=== PATIENT | male | born 1980 | race Caucasian/White ===

== ENCOUNTER → 2019-02-15 | Outpatient (CLI) | payer OTHER ==
[~2019-02-15] MED LIST: ACETAMINOPHEN325 M1 PO; ALPRAZOLAM ER1 MG; AMOXICILLIN875 MG PO; ASPIRIN325 PO; CARISOPRODOL 3350 M1; CIPROFLOXACIN500 M3 PO; COZAAR 50 MG TA50 MG PO; HYDROCODON-ACE1 EACH; HYDROCODONE-AP1 EAC6 PO; IBUPROFEN 800800 M1 PO; NEXIUM40 MG PO; NORVASC5 MG PO; OXYCODONE HCL 55 MG PO; PERCOCET 5-3251 EACH PO; PERCOCET PO; PREDNISONE 20 M20 MG PO; PRINIVIL5 MG PO; XANAX1 MG PO; XARELTO10 MG PO
== END ==
LOC: M.CT 02-14 13:30
DX: Z13.6 Encounter for screening for cardiovascular disorders (principal); I25.10 Atherosclerotic heart disease of native coronary artery without angina pectoris

== ENCOUNTER 2019-03-04 08:07 | Emergency (ER) | payer BC ==
[~2019-03-04] VITALS: Ht 180.3 cm; Wt 88.5 kg
[2019-03-04] MEDS ORDERED: LIPITOR40 MG PO (08:22)
[2019-03-04 08:53] LABS: HEMATOCRIT 46.4 % (42.0-52.0); HEMOGLOBIN 16.4 gm/dL (14.0-18.0); MCHC 35.3 g/dL (28.0-37.0); MCV 87.9 fL (80.0-100.0); MPV 6.9 fl. (7.2-11.1); NUCLEATED RBCS 0 /100WBC; PLATELET COUNT* 211 thou/uL (150-400); RBC 5.28 mil/uL (4.50-6.00); WBC 9.8 thou/uL (4.0-11.0)
[2019-03-04 08:58] LABS: CALCIUM 9.1 mg/dL (8.5-10.1); CREATININE 0.6 mg/dL (0.6-1.3); POTASSIUM 3.9 mmol/L (3.5-5.1)
[2019-03-04 09:03] LABS: INR 1.2; PROTIME 12.5 Seconds (9.20-11.50); TOTAL BILIRUBIN 1.7 mg/dL (<0.1-1.0); TOTAL PROTEIN 7.5 g/dL (6.4-8.2)
[2019-03-04 09:37] LABS: ABSOLUTE BASOPHILS 0.1 thou/uL (0.0-0.2); ABSOLUTE LYMPHOCYTES 0.6 thou/uL (0.8-5.3); ABSOLUTE MONOCYTES 0.7 thou/uL (0.0-1.2); ABSOLUTE NEUTROPHILS 8.4 thou/uL (1.6-8.1)
[2019-03-04 09:39] LABS: PLATELET ESTIMATE ADEQUATE
[2019-03-04 09:48] LABS: URINE BILIRUBIN NEGATIVE (Negative); URINE BLOOD NEGATIVE (Negative); URINE CLARITY CLEAR; URINE COLOR YELLOW; URINE GLUCOSE-RANDOM NEGATIVE (Negative); URINE KETONES TRACE (Negative); URINE LEUKOCYTES-REFLEX NEGATIVE (Negative); URINE NITRITE-REFLEX NEGATIVE (Negative); URINE PROTEIN NEGATIVE (Negative); URINE SPECIFIC GRAVITY 1.015 (1.005-1.030); URINE UROBILINOGEN 0.2 E.U./dl (0.2-1.0)
[2019-03-04] MEDS ORDERED: CIPROFLOXACIN500 M1 PO (12:03)
[2019-03-04] MEDS ORDERED: HYDROCODON-ACE1 EAC7 PO (12:03)
[2019-03-04] MEDS ORDERED: ZOFRAN ODT4 MG PO (12:03)
[2019-03-04] MEDS ORDERED: FLAGYL500 M1 PO (12:03)
[2019-03-04 12:29] VITALS: BP 142/83
== END 2019-03-04 12:36 | disposition home or self-care (01) ==
LOC: M.ERS 08:07
PROVIDERS: Personal Emergency Response Attendant
DX: K52.9 Noninfective gastroenteritis and colitis, unspecified (principal); I10 Essential (primary) hypertension; Z96.642 Presence of left artificial hip joint; Z96.651 Presence of right artificial knee joint

== ENCOUNTER → 2019-03-11 | Outpatient (CLI) | payer BC ==
[~2019-03-11] VITALS: Ht 182.9 cm; Wt 88.6 kg
[~2019-03-11] MED LIST changes: +CIPROFLOXACIN500 M1 PO; +FLAGYL500 M1 PO; +HYDROCODON-ACE1 EAC7 PO; +LIPITOR40 MG PO; +ZOFRAN ODT4 MG PO
[2019-03-11 11:25] LABS: HEMATOCRIT 42.3 % (42.0-52.0); HEMOGLOBIN 14.4 gm/dL (14.0-18.0); MCH 30.6 pg (26.0-34.0); MCHC 34.1 g/dL (28.0-37.0); MCV 89.7 fL (80.0-100.0); MPV 6.5 fl. (7.2-11.1); RBC 4.71 mil/uL (4.50-6.00); WBC 8.1 thou/uL (4.0-11.0)
[2019-03-11 11:39] LABS: ANION GAP 7 mmol/L (7-16); APTT 25.7 Seconds (25.0-31.3); BUN 28 mg/dL (7-18); CALCIUM 8.7 mg/dL (8.5-10.1); CHLORIDE 102 mmol/L (98-107); CO2 27 mmol/L (21-32); CREATININE 1.1 mg/dL (0.6-1.3); GLUCOSE 94 mg/dL (70-99); INR 1.2; POTASSIUM 4.1 mmol/L (3.5-5.1); SODIUM 136 mmol/L (136-145)
[2019-03-11 11:43] LABS: ALBUMIN 3.9 g/dL (3.4-5.0); ALKALINE PHOSPHATASE 70 U/L (46-116); CHOLESTEROL 141 mg/dL (<200); HDL CHOLESTEROL 36 mg/dL (>40); LDL CHOLESTEROL 89 mg/dL (<100); SGOT 30 U/L (15-37); SGPT 100 U/L (30-65); TC:HDL 3.9 Ratio (Not establshd); TOTAL BILIRUBIN 0.6 mg/dL (<0.1-1.0); TRIGLYCERIDE 83 mg/dL (<150); VLDL 17 mg/dL (<40)
[2019-03-11 11:45] LABS: SERUM ASSESSMENT Clear
--- NOTE | 2019-03-11 13:13 | EKG ---
[place] [address] ELECTROCARDIOGRAM REPORT Name: INDU,CARLA Tadeo Room: [facility]#: [id number] Admission: 03/11/19 Attend Phys: Marlo Steiner MD, Discharge: Date of : 78 Report #: [id number] THIS REPORT FOR: //name// [facility] Test Date: 2019-03-11 Test Time: 11:28:25 Pat Name: CARLA GRIGGS Department: Room: Gender: Drier Helper: : 1980 Requested By: Marlo Steiner Order Number: [id number] Reading MD: Enoch Ricardo Measurements Intervals [place] Rate: 49 P: 47 [place]: 174 QRS: 57 QRSD: 113 T: 19 QT: 465 QTc: 420 Interpretive Statements Sinus bradycardia Borderline intraventricular conduction delay ST elev, probable normal early repol pattern Compared to ECG 04/02/2017 13:29:45 Sinus rhythm no longer present ST (T wave) deviation still present Electronically Signed On 03-11-2019 13:12:57 CDT by Enoch Ricardo [email or web address] <ELECTRONICALLY SIGNED> By: Kevin Ricardo MD, [facility] 03/11/19 1312 1128 1128 FPinky Ricardo MD, [facility] /EPI
[2019-03-11 15:08] VITALS: BP 123/79
[2019-03-11 15:17] VITALS: BP 129/82
[2019-03-11 15:46] VITALS: BP 140/78
[2019-03-11 16:01] VITALS: BP 136/76
--- NOTE | 2019-03-11 16:09 | CARD ---
[address] [address] CARDIAC CATH REPORT Name: CARLA GRIGGS Shwetha Room: [facility]#: [id number] Admission: 03/11/19 Attend Phys: Marlo Steiner MD, Discharge: Date of : 78 Report #: [id number] THIS REPORT FOR: //name// APPROVED REPORT Study performed: 03/11/2019 13:42:58 Patient Details The patient is a 38 year-old male Event Personnel Marlo Steiner Wire Preparation Worker, Alberto Kennedy (Adarsh James Jessie RTR Monitor, Jaime Velasco TELEVISION SCRIPT WRITER Monitor, Chichi Villarreal RN Pneumatic Deicer Inspector Procedures Performed Art Access - R radial artery Left Heart Cath w/or w/o Coronaries [id number] [facility] Hemostasis with Hemoband , Complete Heart Catheterization Indication Dyspnea, Markedly increased coronary calcium score Risk Factors Family History, Hypercholesterolemia Admission/Lab Medications/Medications given during procedure Heparin Unfract. Procedure Narrative The patient was brought electively to the Cardiac Catheterization Laboratory and was prepped and draped in a sterile manner. The right wrist was infiltrated with 2% Lidocaine subcutaneous anesthesia. A Slender Glidesheath sheath was inserted into the RRA. Coronary angiography was performed using coronary diagnostic catheters. The right coronary system was accessed and visualized with a [place] 4.0 6fr catheter. The left coronary system was accessed and visualized with a JL 3.5 5fr catheter. The left ventricle was accessed and visualized with a PC: Pig 6fr catheter. Left ventricular/Aortic Valve gradient assessed via catheter pullback. Left ventriculogram was performed in ZIMMERMAN projection. Closure device was deployed with a Fr Vasc-Band Reg 24cm. The patient tolerated the procedure well and there were no complications associated with the procedure. There [place] [address] CARDIAC CATH REPORT Name: CARLA GRIGGS Room: [facility]#: [id number] Admission: 03/11/19 Attend Phys: Marlo Steiner MD, Discharge: Date of : 78 Report #: [id number] Intraoperative Conscious Sedation Sedation start time: 1406 Case end Time: 1436 Fentanyl 75 mcg Dose: 1133 mGy Contrast Type and Amount: Visipaque 120 ml Coronary Angiography The patient's coronary anatomy is right dominant. Diagnostic Cath Left Main 0% narrowing LAD Prominent vessel with 30% mid vessel narrowing Circumflex 0% narrowing Right Coronary Large dominant vessel with mild aneurysmal dilatation of the proximal mid and distal portions; there was 0% stenosis noted Left Ventriculography The left ventricle is normal in size with normal contractility. The left ventricular ejection fraction is estimated to be 55%. Left ventricular wall motion abnormalities are not present. There is no mitral insufficiency. Hemodynamics The aortic pressure is 138/69 mmHg with a mean of 97 mmHg. The left ventricular pressure is 130/2 mmHg with a mean of mmHg. The left ventricular end diastolic pressure is 12 mmHg. There was no gradient across the aortic valve upon pullback. 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 with 0% stenosis noted #2 normal left ventricular systolic function, estimate ejection fraction being 55% #3 normal left-sided hemodynamics study Recommendations Cardiac [place] [address] CARDIAC CATH REPORT Name: CARLA GRIGGS Room: [facility]#: [id number] Admission: 03/11/19 Attend Phys: Marlo Steiner MD, Discharge: Date of : 78 Report #: [id number] Aggressive Medical Therapy Diagnostic Cath Approved by: Marlo Steiner MD Date/Time: 03/11/2019 15:51:26 <ELECTRONICALLY SIGNED> By: Marlo Steiner MD, [facility] 03/11/19 1609 1609 1609Marlo Steiner MD, FAC /INF
== END | disposition home or self-care (01) ==
LOC: M.CL 10:48
PROVIDERS: Internal Medicine
DX: I25.10 Atherosclerotic heart disease of native coronary artery without angina pectoris (principal); I10 Essential (primary) hypertension; E78.00 Pure hypercholesterolemia, unspecified; Z96.642 Presence of left artificial hip joint; Z96.651 Presence of right artificial knee joint; Z98.890 Other specified postprocedural states; Z87.891 Personal history of nicotine dependence; Z79.82 Long term (current) use of aspirin; Z79.899 Other long term (current) drug therapy; Z82.49 Family history of ischemic heart disease and other diseases of the circulatory system; Z79.01 Long term (current) use of anticoagulants

== ENCOUNTER 2019-09-06 06:27 | Emergency (ER) | payer BC ==
[~2019-09-06] VITALS: Ht 180.3 cm; Wt 90.7 kg
[2019-09-06] MEDS ORDERED: CYCLOBENZAPRINE5 MG PO (07:30)
[2019-09-06] MEDS ORDERED: MOBIC15 MG PO (07:30)
[2019-09-06] MEDS ORDERED: HYDROCODON-ACE1 EAC7 PO (07:30)
[2019-09-06 07:45] VITALS: BP 124/79
== END 2019-09-06 07:45 | disposition home or self-care (01) ==
LOC: M.ERS 06:27
DX: S43.491A Other sprain of right shoulder joint, initial encounter (principal); I10 Essential (primary) hypertension; W01.0XXA Fall on same level from slipping, tripping and stumbling without subsequent striking against object, initial encounter; Y93.89 Activity, other specified; Y92.89 Other specified places as the place of occurrence of the external cause; Y99.8 Other external cause status

== ENCOUNTER → 2019-09-09 | Outpatient (CLI) | payer BC ==
[~2019-09-09] MED LIST changes: +CYCLOBENZAPRINE5 MG PO; +MOBIC15 MG PO
== END ==
LOC: M.MRI 13:02
DX: S43.431A Superior glenoid labrum lesion of right shoulder, initial encounter (principal); M75.101 Unspecified rotator cuff tear or rupture of right shoulder, not specified as traumatic; M19.011 Primary osteoarthritis, right shoulder; M75.81 Other shoulder lesions, right shoulder; X58.XXXA Exposure to other specified factors, initial encounter; Y93.89 Activity, other specified; Y92.89 Other specified places as the place of occurrence of the external cause; Y99.8 Other external cause status

== ENCOUNTER 2019-10-11 18:20 | Emergency (ER) | payer BC ==
[~2019-10-11] VITALS: Ht 182.9 cm; Wt 93.0 kg
[2019-10-11] MEDS ORDERED: HYDROCODON-ACE1 EAC8 PO (20:14)
[2019-10-11 20:21] VITALS: BP 132/83
== END 2019-10-11 20:22 | disposition home or self-care (01) ==
LOC: M.ERS 18:20
DX: S46.211A Strain of muscle, fascia and tendon of other parts of biceps, right arm, initial encounter (principal); I10 Essential (primary) hypertension; Z96.642 Presence of left artificial hip joint; Z96.651 Presence of right artificial knee joint; X50.9XXA Other and unspecified overexertion or strenuous movements or postures, initial encounter; Y93.89 Activity, other specified; Y92.89 Other specified places as the place of occurrence of the external cause; Y99.8 Other external cause status

== ENCOUNTER 2021-01-18 10:27 | Emergency (ER) | payer BC ==
[~2021-01-18] VITALS: Ht 182.9 cm; Wt 108.9 kg
[~2021-01-18 10:27] MED LIST changes: +HYDROCODON-ACE1 EAC8 PO
[2021-01-18 11:26] LABS: ABSOLUTE LYMPHOCYTES 1.1 thou/uL (0.8-5.3); ABSOLUTE MONOCYTES 0.1 thou/uL (0.0-1.2); ABSOLUTE NEUTROPHILS 3.3 thou/uL (1.6-8.1); BASOPHILS 0.1 %; HEMATOCRIT 40.1 % (42.0-52.0); HEMOGLOBIN 14.1 gm/dL (14.0-18.0); MCH 30.3 pg (26.0-34.0); MCV 86.5 fL (80.0-100.0); MONOCYTES 3.2 %; MPV 6.4 fl. (7.2-11.1); NUCLEATED RBCS 0 /100WBC; PLATELET COUNT* 143 thou/uL (150-400); POLYS 71.7 %; RBC 4.64 mil/uL (4.50-6.00); RDW-CV 13.2 % (10.5-14.5); WBC 4.6 thou/uL (4.0-11.0)
[2021-01-18 11:34] LABS: CALCIUM 8.2 mg/dL (8.5-10.1); CREATININE 0.8 mg/dL (0.6-1.3); POTASSIUM 4.2 mmol/L (3.5-5.1)
[2021-01-18 11:38] LABS: ALBUMIN 3.7 g/dL (3.4-5.0); TOTAL BILIRUBIN 0.7 mg/dL (<0.1-1.0)
[2021-01-18] MEDS ORDERED: DOXYCYCLINE 10100 MG PO (12:15)
[2021-01-18] MEDS ORDERED: PROAIR HFA8.5 GM INH (12:15)
[2021-01-18] MEDS ORDERED: APAP W/CODEINE1 TA2 PO (12:15)
[2021-01-18] MEDS ORDERED: PREDNISONE 20 M20 MG PO (12:15)
[2021-01-18 12:45] VITALS: BP 131/65
== END 2021-01-18 12:46 | disposition home or self-care (01) ==
LOC: M.ERS 10:27
PROVIDERS: Physician Assistant
DX: U07.1 COVID-19 (principal); J12.82 Pneumonia due to coronavirus disease 2019; I10 Essential (primary) hypertension

== ENCOUNTER 2021-01-21 08:57 | Inpatient (IN) | payer BC ==
[~2021-01-21] VITALS: Ht 182.9 cm; Wt 82.9 kg
[~2021-01-21 08:57] MED LIST changes: +APAP W/CODEINE1 TA2 PO; +DOXYCYCLINE 10100 MG PO; +PROAIR HFA8.5 GM INH
[2021-01-21 09:11] VITALS: BP 134/86
[2021-01-21 10:08] LABS: HEMATOCRIT 39.9 % (42.0-52.0); HEMOGLOBIN 14.1 gm/dL (14.0-18.0); MCH 30.6 pg (26.0-34.0); MCHC 35.3 g/dL (28.0-37.0); MCV 86.6 fL (80.0-100.0); MPV 6.5 fl. (7.2-11.1); NUCLEATED RBCS 0 /100WBC; PLATELET COUNT* 180 thou/uL (150-400); RBC 4.61 mil/uL (4.50-6.00); RDW-CV 13.3 % (10.5-14.5); WBC 5.7 thou/uL (4.0-11.0)
[2021-01-21 10:16] LABS: CALCIUM 7.6 mg/dL (8.5-10.1); CREATININE 0.7 mg/dL (0.6-1.3); POTASSIUM 3.7 mmol/L (3.5-5.1)
[2021-01-21 10:32] LABS: ALBUMIN 3.3 g/dL (3.4-5.0); TOTAL BILIRUBIN 0.8 mg/dL (<0.1-1.0)
[2021-01-21 11:28] LABS: ABSOLUTE LYMPHOCYTES 0.5 thou/uL (0.8-5.3); ABSOLUTE NEUTROPHILS 5.2 thou/uL (1.6-8.1); ATYPICAL LYMPHS 1 %; PLATELET ESTIMATE ADEQUATE
[2021-01-21 15:28] VITALS: BP 137/84
--- NOTE | 2021-01-21 15:35 | EKG ---
[place] [address] ELECTROCARDIOGRAM REPORT Name: CARLA GRIGGS Room: [place] [address] ADM IN [facility]#: [id number] Admission: 01/21/21 Attend Phys: Bill Hedrick Discharge: Date of : 78 Date of Service: 01/21/21 0924 Report #: [id number] THIS REPORT FOR: //name// [facility] ED Test Date: 2021-01-21 Test Time: 09:24:43 Pat Name: CARLA GRIGGS Department: Room: [facility] Gender: M Coldfusion: KYLIE : 1980 Requested By: Marco Parra Order Number: [id number] MD: Tio Baird Measurements Intervals [place] Rate: 94 P: 34 [place]: 170 QRS: 39 QRSD: 110 T: -18 QT: 370 QTc: 463 Interpretive Statements Sinus rhythm Probable inferior infarct, age indeterminate Compared to ECG 03/11/2019 11:28:25 Sinus bradycardia no longer present ST (T wave) deviation still present Electronically Signed On 01-21-2021 15:35:44 CDT by Tio Baird [email or web address] <ELECTRONICALLY SIGNED> By: Tio Baird MD, FAC 01/21/21 1535 3 Tio Baird MD, FAC /EPI
[2021-01-21 19:50] VITALS: BP 136/81
[2021-01-21 23:56] VITALS: BP 117/69
[2021-01-22 00:44] VITALS: BP 130/79; BP 134/80
--- NOTE | 2021-01-22 02:40 | NUR ---
ASSUMED CARE OF PT AT 1900. PT IS ALERT AND ORIENTED. VSS. PERRLA. NO COMPLAINTS OF PAIN. CONVALESCENT PLASMA GIVEN. PT IS ON 2 LITERS O2. PT IS IN SINUS RYTHM ON THE TELEMETRY. PT IS RESTING COMFORTABLY IN BED. RESPIRATIONS ARE EVEN AND NONLABORED. WILL CONTINUE TO MONITOR PT.
[2021-01-22 04:31] VITALS: BP 110/60
[2021-01-22 04:59] LABS: HEMATOCRIT 38.3 % (42.0-52.0); HEMOGLOBIN 13.6 gm/dL (14.0-18.0); MCH 30.1 pg (26.0-34.0); MCHC 35.5 g/dL (28.0-37.0); MCV 84.8 fL (80.0-100.0); MPV 6.7 fl. (7.2-11.1); RBC 4.51 mil/uL (4.50-6.00); RDW-CV 13.3 % (10.5-14.5); WBC 5.7 thou/uL (4.0-11.0)
[2021-01-22 05:11] LABS: CALCIUM 8.4 mg/dL (8.5-10.1); CREATININE 0.7 mg/dL (0.6-1.3); POTASSIUM 4.1 mmol/L (3.5-5.1)
[2021-01-22 08:00] VITALS: BP 141/84
[2021-01-22 12:00] VITALS: BP 133/80
--- NOTE | 2021-01-22 13:15 | NUR ---
Pt covid positive, CM spoke with Pt via phone. Pt resides at home with , is also positive. Normally active and independent. No DME. No hx of HH or SNF. Pt requiring 5L o2. Continue ivabx. Goal is home at dc, CM to follow for possible o2 needs at dc. Anticipate dc in a few days.
[2021-01-22] MEDS ORDERED: XANAX1 MG PO (14:17)
[2021-01-22 15:43] LABS: BE 0.3 mmol/L (-2 to +3); PCO2 32.8 mmHg (35.0-45.0); pH 7.467 (7.340-7.450)
[2021-01-22 15:48] LABS: PO2 58.3 mmHg (75.0-100.0)
[2021-01-22 16:00] VITALS: BP 131/81
[2021-01-22 18:33] LABS: APTT 24.2 Seconds (25.0-31.3); INR 1.1; PROTIME 11.2 Seconds (9.20-11.50)
[2021-01-22 19:55] LABS: URINE BILIRUBIN NEGATIVE (Negative); URINE BLOOD NEGATIVE (Negative); URINE CLARITY CLEAR; URINE COLOR YELLOW; URINE GLUCOSE-RANDOM NEGATIVE (Negative); URINE KETONES NEGATIVE (Negative); URINE LEUKOCYTES-REFLEX NEGATIVE (Negative); URINE NITRITE-REFLEX NEGATIVE (Negative); URINE PROTEIN 1+ (Negative); URINE SPECIFIC GRAVITY 1.015 (1.005-1.030); URINE UROBILINOGEN 0.2 E.U./dl (0.2-1.0)
[2021-01-22 20:00] VITALS: BP 141/87
[2021-01-23 02:24] VITALS: BP 137/84
[2021-01-23 04:13] LABS: APTT 24.2 Seconds (25.0-31.3); INR 1.1; PROTIME 11.4 Seconds (9.20-11.50)
[2021-01-23 04:17] LABS: ABSOLUTE LYMPHOCYTES 0.5 thou/uL (0.8-5.3); ABSOLUTE MONOCYTES 0.2 thou/uL (0.0-1.2); ABSOLUTE NEUTROPHILS 2.8 thou/uL (1.6-8.1); BASOPHILS 0.2 %; HEMATOCRIT 40.9 % (42.0-52.0); HEMOGLOBIN 14.6 gm/dL (14.0-18.0); LYMPHOCYTES 14.9 %; MCH 30.6 pg (26.0-34.0); MCHC 35.6 g/dL (28.0-37.0); MONOCYTES 5.7 %; MPV 6.7 fl. (7.2-11.1); NUCLEATED RBCS 0 /100WBC; PLATELET COUNT* 265 thou/uL (150-400); POLYS 79.2 %; RBC 4.76 mil/uL (4.50-6.00); RDW-CV 13.6 % (10.5-14.5); WBC 3.5 thou/uL (4.0-11.0)
[2021-01-23 04:32] LABS: ALBUMIN 3.1 g/dL (3.4-5.0); CALCIUM 8.4 mg/dL (8.5-10.1); CREATININE 0.7 mg/dL (0.6-1.3); MAGNESIUM 2.2 mg/dL (1.8-2.4); POTASSIUM 4.1 mmol/L (3.5-5.1); TOTAL BILIRUBIN 0.6 mg/dL (<0.1-1.0); TOTAL PROTEIN 7.4 g/dL (6.4-8.2)
[2021-01-23 05:19] VITALS: BP 127/78
[2021-01-23 08:00] VITALS: BP 118/78
--- NOTE | 2021-01-23 09:28 | EKG ---
[place] [address] ELECTROCARDIOGRAM REPORT Name: DARIUSZ GRIGGSCHAPILAR Tadeo Room: [address] ADM IN ..#: [id number] Admission: 01/21/21 Attend Phys: Bill Hedrick Discharge: Date of : 78 Date of Service: 01/22/21 1306 Report #: [id number] THIS REPORT FOR: //name// [facility] Test Date: 2021-01-22 Test Time: 13:06:33 Pat Name: CARLA GRIGGS Department: Room: [address] Gender: M Quality Control Checker: JUNIOR : 1980 Requested By: Bill Hedrick Order Number: [id number] Raciel MD: Tio Baird Measurements Intervals [place] Rate: 103 P: 28 [place]: 150 QRS: 32 QRSD: 102 T: -22 QT: 354 QTc: 464 Interpretive Statements Sinus tachycardia Probable left atrial enlargement Borderline T abnormalities, inferior leads Compared to ECG 01/21/2021 09:24:43 Sinus rhythm no longer present Electronically Signed On 01-23-2021 9:28:18 CDT by Tio Baird [email or web address] <ELECTRONICALLY SIGNED> By: Tio Baird MD, [facility] 01/23/21 0928 1306 1306 Tio Baird MD, [facility] /EPI
--- NOTE | 2021-01-23 15:35 | NUR ---
Covid positive. O2 needs up to 8L. No dc date planned at this time
[2021-01-23 19:01] VITALS: BP 150/85
[2021-01-23 19:50] VITALS: BP 125/74
[2021-01-24] VITALS (8 sets, daily range): BP systolic 132–161; BP diastolic 73–84
--- NOTE | 2021-01-24 00:44 | NUR ---
ASSUMED CARE OF PT AT 1900. PT IS ALERT AND ORIENTED. VSS. PERRLA. NO COMPLAINTS OF PAIN. PT IS ON 12 LITERS O2. PT IS IN SINUS RYTHM ON THE TELEMETRY. PT IS RESTING COMFORTABLY IN BED. RESPIRATIONS ARE EVEN AND NONLABORED. WILL CONTINUE TO MONITOR PT.
[2021-01-24 04:17] LABS: HEMATOCRIT 42.3 % (42.0-52.0); HEMOGLOBIN 15.2 gm/dL (14.0-18.0); MCH 30.6 pg (26.0-34.0); MCHC 35.9 g/dL (28.0-37.0); MCV 85.4 fL (80.0-100.0); MPV 6.8 fl. (7.2-11.1); RBC 4.95 mil/uL (4.50-6.00); RDW-CV 13.5 % (10.5-14.5); WBC 5.7 thou/uL (4.0-11.0)
[2021-01-24 04:25] LABS: CALCIUM 8.5 mg/dL (8.5-10.1); CREATININE 0.7 mg/dL (0.6-1.3); POTASSIUM 3.8 mmol/L (3.5-5.1)
[2021-01-24 15:53] LABS: CALCIUM 8.2 mg/dL (8.5-10.1); CREATININE 0.9 mg/dL (0.6-1.3); MAGNESIUM 2.1 mg/dL (1.8-2.4); POTASSIUM 3.8 mmol/L (3.5-5.1)
--- NOTE | 2021-01-24 17:47 | NUR ---
PATIENT RESTING COMFORTABLY IN ROOM. 94% ON 12L HIGH FLOW NASAL CANNULA. MIDLINE TO LEFT UPPER ARM, PATENT, SALINE LOCKED. IV TO RIGHT FOREARM, PATENT, SALINE LOCKED. BLOOD SUGARS MONITORED THROUGHOUT SHIFT, INSULIN GIVEN ORDERED/NEEDED. BED IN LOW/LOCKED POSITION, CALL LIGHT WITHIN REACH. NO QUESTIONS OR CONCERNS VOICED.
--- NOTE | 2021-01-24 20:00 | NUR ---
RECEIVED REPORT AND ASSUMED CARE OF PT, ASSESSMENT COMPLETED. PT IN ENHANCED ISOLATION FOR COVID. O2 ON AT 12L/HFC, SOA WITH ANY ACTIVITY, HOB ELEVATED. DISCUSSED CONVALESCENT PLASMA AND WILL TRANSFUSE. TELEMETRY ON SHOWING SB. WILL CONT TO MONITOR AND ASSIST NEEDED.
--- NOTE | 2021-01-24 21:41 | CON ---
[address] [address] CONSULTATION Name: ALETA GRIGGSRY Shwetha Room: [address] IN ..#: [id number] Admission: 01/21/21 Attend Phys: Yani Campos Discharge: Date of : 78 Report #: [id number] THIS REPORT FOR: cc: Lita Shi Maggie M. DO Pervez, Adeel MD ~ DOC #: [id number] Yo [facility] MD DATE OF CONSULTATION: 01/23/2021 REQUESTING PHYSICIAN: Dr. Campos. INDICATION FOR CONSULTATION: COVID-19 leading to acute hypoxemic respiratory failure. HISTORY OF PRESENT ILLNESS: A 40-year-old gentleman. He has had various orthopedic surgeries as described below in the past, also he carries a previous diagnosis of hypertension, although he is not noted to be on any antihypertensive agents up on admission. There is no known history of smoking. The patient now presented to the Emergency Room a few days ago. Presentation was with intractable high-grade fever. He had had contact with COVID-19 as well. The patient at that time was given a prescription of prednisone as well as doxycycline. He came back to the Emergency Room yesterday again with high-grade fever. He also reported that he was having increasing shortness of breath. He had had a significant cough, but not much sputum. The patient did not describe any upper respiratory complaints, swelling of lower extremities or calf pain. He did report that he had a poor appetite. Yesterday afternoon, the patient's respiratory status worsened. He became significantly tachycardic. He also had increasing oxygen needs. The patient initially was only on 2 liters oxygen via nasal cannula, maintaining O2 saturation in the low 90s, although he was hypoxic on room air. This need to be increased to at 10 liters. He also had some chest tightness and some chest discomfort with respiration and coughing. His troponin I was not elevated at that time, the patient did appropriately receive dexamethasone as well as convalescent plasma and remdesivir yesterday. He was relating worsening in his symptoms yesterday, receiving albuterol inhaler, although I am not certain if they were actually related. When I was called, I went ahead and increased dexamethasone, also ordered Actemra. We proceeded obtaining a CTA chest which does show extensive bilateral infiltrates, but there are no pulmonary emboli noted. He does not have swelling of lower extremities. He does not have calf pain. He does report that he is feeling significantly better than yesterday; however, he still remains on 10 liters of oxygen, maintaining O2 saturation in the low 90[place] [address] CONSULTATION Name: CARLA GRIGGS Room: [address] IN [facility]#: [id number] Admission: 01/21/21 Attend Phys: Yani Campos Discharge: Date of : 78 Report #: [id number] REVIEW OF SYSTEMS: Review of systems for 12 points is negative except as mentioned above. I specifically did ask him about sleep complaints and he denied. PAST MEDICAL HISTORY: Fusion at neck, C5-C6, hip and knee surgeries, rotator cuff surgery, hypertension as mentioned on his records, however, his blood pressure currently is within the normal range without antihypertensive medications. SOCIAL HISTORY: No known history of smoking, ethanol abuse, or drug abuse. CURRENT MEDICATIONS: List in [employer] reviewed. [facility] MED[facility]. Also, see discussion above. FAMILY HISTORY: There is no pertinent family history. PHYSICAL EXAMINATION: GENERAL: He is alert, awake and oriented, does not appear to be in any distress at this time. VITAL SIGNS: Has a pulse of 70 and a blood pressure of 118/78. He is saturating 94%. He is on 10 liters oxygen via nasal cannula. His respiratory rate is around 18. He is afebrile now with a temperature of 36.5 noted. Note that I did give him a larger dose of Decadron yesterday. He had a temperature of 38.7 yesterday. Body mass index is 33. HEENT: Head is normocephalic and atraumatic. Pupils are equal. There is no throat erythema. NECK: Does not show raised JVP asymmetry, mass or lymph nodes. CHEST: Symmetrical expansion on inspection and palpation. On auscultation, breath sounds are bilaterally equal. There are minimal rales at bilateral bases. HEART: Regular. There is no murmur. ABDOMEN: Soft and nontender. EXTREMITIES: Lower extremities show no edema, no calf tenderness. SKIN: Dry and intact. NEUROLOGIC: Moves all extremities bilaterally equally and spontaneously with no focal deficit identified. LABORATORY DATA: The patient's CTA chest is reviewed. Chest x-ray is also reviewed. See discussion as above as well as the lab work is in [facility] and this is also reviewed. He is positive for COVID-19 antigen. Arterial blood gas is consistent with acute hypoxemic respiratory failure. [address] [address] CONSULTATION Name: CARLA GRIGGS Room: [address] IN [facility]#: [id number] Admission: 01/21/21 Attend Phys: Yani Campos Discharge: Date of : 78 Report #: [id number] ASSESSMENT AND PLAN: 1. Acute hypoxemic respiratory failure secondary to COVID-19. I did discuss with him regarding prone positioning and sleeping on sides and avoiding sleeping supine. Recommend out of bed to chair as tolerated. Recommend incentive spirometry. I suspect that he has underlying obstructive sleep apnea. This is despite the fact that he denied any sleep complaints. Therefore, if he is to decline, recommend having a low threshold of moving him to a negative pressure room so that he could be on a BiPAP while asleep. I am not certain if the patient's symptoms yesterday were in fact related to albuterol, but it is for this reason that I did not order scheduled albuterol at this time. Certainly if he declines, I will consider giving him Brovana. 2. COVID-19. His fever is better since yesterday. This is likely a response to dexamethasone. I would continue current dose and then titrate per response. Also, will continue remdesivir, follow LFTs. We did give him Actemra as well yesterday, he did receive 1 unit of convalescent plasma yesterday as well. I do not feel strongly either way regarding giving him a second unit or holding off. 3. Pulmonary infiltrates. I agree with the antibiotics as ordered by Dr. Campos, will continue. I ordered a sputum culture as well as nasal swab for MRSA yesterday. Note that he received doxycycline prior to admission. 4. DVT prophylaxis, will increase his Lovenox to intermediate dose. 5. C. difficile prophylaxis. We will order Lactinex. 6. GI prophylaxis. We will give him acid suppression while he is on high dose steroids. 7. Hyperglycemia. Recommend insulin sliding scale. Thanks for this consultation. Yo [facility] MD AP/LEOLAU <ELECTRONICALLY SIGNED> By: Yo [facility] MD 01/24/21 2141 1303 1931Acharles [facility] MD /nt
[2021-01-25 04:20] LABS: ABSOLUTE LYMPHOCYTES 0.5 thou/uL (0.8-5.3); ABSOLUTE MONOCYTES 0.6 thou/uL (0.0-1.2); ABSOLUTE NEUTROPHILS 6.7 thou/uL (1.6-8.1); HEMATOCRIT 41.8 % (42.0-52.0); LYMPHOCYTES 6.7 %; MCH 30.3 pg (26.0-34.0); MCV 84.3 fL (80.0-100.0); MONOCYTES 7.5 %; MPV 6.3 fl. (7.2-11.1); NUCLEATED RBCS 0 /100WBC; PLATELET COUNT* 298 thou/uL (150-400); POLYS 85.8 %; RBC 4.96 mil/uL (4.50-6.00); RDW-CV 13.4 % (10.5-14.5); WBC 7.8 thou/uL (4.0-11.0)
[2021-01-25 05:04] LABS: ALBUMIN 3.1 g/dL (3.4-5.0); CREATININE 0.9 mg/dL (0.6-1.3); MAGNESIUM 2.2 mg/dL (1.8-2.4); TOTAL BILIRUBIN 0.6 mg/dL (<0.1-1.0); TOTAL PROTEIN 6.8 g/dL (6.4-8.2)
[2021-01-25 05:09] LABS: CALCIUM 8.4 mg/dL (8.5-10.1)
--- NOTE | 2021-01-25 07:45 | NUR ---
AWAKE FREQ DURING NIGHT. ABLE TO TOLERATE BIPAP UNTIL APPROX 0430 AND THE BRIDGE OF HIS NOSE BECAME SORE. O2 AT 12L/HFC REAPPLIED. PT STATES HE FEELS SO MUCH BETTER THIS AM WITH HIS BREATHING BECAUSE OF THE BIPAP. UP TO BSC, DOES BECOME SOA BUT STATES THIS IS ALSO EASIER THIS AM. PT HAD 2 LIQ STOOLS TONIGHT. TELEMETRY CONT TO SHOW SB. HS GOALS OF REST, SAFETY AND OXYGENATION ACHIEVED. HOURLY ROUNDING OBSERVED.
[2021-01-25 08:00] VITALS: BP 139/76
[2021-01-25 12:33] VITALS: BP 149/80
--- NOTE | 2021-01-25 14:56 | NUR ---
Pt on 12L, continue to wean. No weekend dc planned
[2021-01-25 16:30] VITALS: BP 138/78
[2021-01-25 20:30] VITALS: BP 139/83
--- NOTE | 2021-01-25 20:30 | NUR ---
RECEIVED REPORT AND ASSUMED CARE OF PT AT 1930, ASSESSMENT COMPLETED AT THIS TIME. PT DOZING BUT AWAKENS EARLIER. SOA NOTED WITH CONVERSATION, O2 ON AT 8L/HFC, HOB ELEVATED. TELEMETRY ON SHOWING SB WITH RATE INTO 40'S. WILL CONT TO MONITOR AND ASSIST NEEDED.
[2021-01-26 00:18] VITALS: BP 140/81
[2021-01-26 04:54] VITALS: BP 141/83
--- NOTE | 2021-01-26 06:30 | NUR ---
SLEPT WELL TONIGHT AND WAS ABLE TO TOLERATED BIPAP WITH XANAX GIVEN. PT DOES BECOME SOA WITH ANY ACTIVITY. GAIT STEADY INDEPENDENTLY TO BSC BUT DESATS INTO 70'S WITH SLOW RECOVERY. O2 CHANGED BACK TO 8L/HFC. TELEMETRY CONT TO SHOW SB INTO 40'S. NO COMPLAINTS VOICED. HS GOALS OF REST, SAFETY AND OXYGENATION ACHIEVED. HOURLY ROUNDING OBSERVED. REMAINS IN COVID ISOLATION
[2021-01-26 07:55] VITALS: BP 140/87
[2021-01-26 08:34] LABS: HEMATOCRIT 45.1 % (42.0-52.0); HEMOGLOBIN 16.3 gm/dL (14.0-18.0); MCH 30.5 pg (26.0-34.0); MCHC 36.1 g/dL (28.0-37.0); MCV 84.4 fL (80.0-100.0); MPV 6.4 fl. (7.2-11.1); NUCLEATED RBCS 0 /100WBC; PLATELET COUNT* 324 thou/uL (150-400); RBC 5.34 mil/uL (4.50-6.00); RDW-CV 13.3 % (10.5-14.5); WBC 10.7 thou/uL (4.0-11.0)
[2021-01-26 08:47] LABS: CALCIUM 8.8 mg/dL (8.5-10.1); CREATININE 0.8 mg/dL (0.6-1.3); MAGNESIUM 2.5 mg/dL (1.8-2.4); POTASSIUM 4.2 mmol/L (3.5-5.1)
[2021-01-26 09:21] LABS: ABSOLUTE LYMPHOCYTES 0.9 thou/uL (0.8-5.3); ABSOLUTE MONOCYTES 0.4 thou/uL (0.0-1.2); ABSOLUTE NEUTROPHILS 9.4 thou/uL (1.6-8.1)
[2021-01-26 09:22] LABS: PLATELET ESTIMATE ADEQUATE
--- NOTE | 2021-01-26 09:28 | NUR ---
ASSUMED CARE OF PT THIS AM AROUND 0715- VOCATIONAL REHABILITATION SPECIALIST IN PLACE ORDERED, TRACING SB- UPON ASSESSMENT PT NOTED TO BE RESTING IN BED- PT A&O X4- CONT OF BOWEL AND BLADDER- UP AD-BANDAR TO BED SIDE CHAIR/COMMODE- COURSE UPPER LUNG SOUNDS/DIMINISHED IN BASES- VSS, O2 SAT 90% ON 8L HF NC- DYSPNEA NOTED ON EXERTION- ABD SOFT/ROUND/NON-TENDER, BS X4 QUADS- BM NOTED THIS AM DIARRHEA- ISOLATION IN PLACE AND MAINTAINED R/T COVID- IV NOTED TO LUE AND RIGHT FA INTACT AND SL- GOOD PO INTAKE NOTED THIS AM WITH BREAKFAST, BS MONITORED ORDERED WITH SSI PRESCRIBED- PT DENIES ANY C/O PAIN/DISCOMFORT AT THIS TIME- CALL LIGHT AND PERSONAL BELONGINGS WITH IN REACH- HOURLY ROUNDS IN PLACE R/T SAFETY/NEEDS- ALL NEEDS MET AT THIS TIME
[2021-01-26 12:00] VITALS: BP 142/78
[2021-01-26 16:00] VITALS: BP 142/82
[2021-01-26 19:30] VITALS: BP 149/92
[2021-01-27] VITALS: BP 136/91
[2021-01-27 04:06] VITALS: BP 133/72
[2021-01-27 05:31] LABS: ALBUMIN 3.1 g/dL (3.4-5.0); CALCIUM 8.2 mg/dL (8.5-10.1); CREATININE 0.8 mg/dL (0.6-1.3); POTASSIUM 4.2 mmol/L (3.5-5.1); TOTAL PROTEIN 6.6 g/dL (6.4-8.2)
[2021-01-27 05:34] LABS: ABSOLUTE LYMPHOCYTES 0.5 thou/uL (0.8-5.3); ABSOLUTE MONOCYTES 0.3 thou/uL (0.0-1.2); BASOPHILS 0.1 %; HEMATOCRIT 43.2 % (42.0-52.0); HEMOGLOBIN 15.4 gm/dL (14.0-18.0); MCH 30.1 pg (26.0-34.0); MCHC 35.7 g/dL (28.0-37.0); MCV 84.2 fL (80.0-100.0); MONOCYTES 2.5 %; MPV 6.3 fl. (7.2-11.1); NUCLEATED RBCS 1 /100WBC; PLATELET COUNT* 274 thou/uL (150-400); POLYS 93.4 %; RBC 5.13 mil/uL (4.50-6.00); RDW-CV 13.3 % (10.5-14.5); WBC 12.9 thou/uL (4.0-11.0)
--- NOTE | 2021-01-27 07:05 | NUR ---
PT SLEPT ON AND OFF THIS SHIFT. ASSESSMENT DOCUMENTED. MEDS GIVEN PER E-SEP. IV PATENT. TYLENOL GIVEN PER E-SEP. PT HAD PANIC ATTACK ON BIPAP HAD TO TAKE OFF FOR ABOUT AN HOUR AND WAS ABLE TO REAPPLY. O2 UP TO 10NC AFTER PANIC ATTACK. ISOLATION MAINTAINED. PT ABLE TO MAKE NEEDS KNOWN. WILL CONTINUE WITH PLAN OF CARE.
[2021-01-27 07:40] VITALS: BP 125/81
--- NOTE | 2021-01-27 09:12 | NUR ---
ASSUMED CARE OF PT THIS AM AROUND 0715- CLOCKSMITH IN PLACE ORDERED, TRACING SB- UPON ASSESSMENT PT NOTED TO BE RESTING IN BED- PT A&O X4- CONT OF B/B- UP AD-BANDAR TO BED SIDE COMMODE- WHEEZES NOTED TO UPPER LOBESM CLEAR TO LEFT LOWER AND CRACKLES NOTED TO LEFT LOWER- DYSPNEA NOTED- VSS, O2 SAT 90% ON 12L HF NC THIS AM- IS ENCOURAGED AND AT BED SIDE- ABD SOFT/ROUND/NON-TENDER, BS X4 QUADS- BM NOTED THIS AM- IV NOTED TO LUE AND RIGHT FA INTACT AND SL- IV ABT GIVEN THIS AM PRESCRIBED- ISOLATION IN PLACE AND MAINTAINED INDICATED R/T COVID- GOOD PO INTAKE NOTED THIS AM WITH BREAKFAST- BS MONITORED ORDERED, SSI PRESCRIBED- PT DENIES ANY C/O PAIN/DISCOMFORT AT THIS TIME- CALL LIGHT AND PERSONAL BELONGINGS WITH IN REACH- ALL NEEDS MET AT THIS TIME
[2021-01-27 13:21] VITALS: BP 141/85
[2021-01-27 16:30] VITALS: BP 143/83
[2021-01-27 20:00] VITALS: BP 159/75
--- NOTE | 2021-01-27 20:00 | NUR ---
RECEIVED REPORT AND ASSUMED CARE OF PT, ASSESSMENT COMPLETED. PT VERY ANXIOUS AND FLUSTRATED ABOUT BREATHING AND WHY HE ISN'T GETTING BETTER. REASSURANCE GIVEN. O2 ON AT 15L/HFC, CONT PULSE OX SHOWING 88-89%. HAVING OCC COUGH BUT UNABLE TO GET SECRETIONS UP. TELEMETRY ON SHOWING SR TO SB. WILL CONT TO MONITOR AND ASSIST NEEDED.
[2021-01-28] VITALS: BP 156/80
[2021-01-28 06:01] VITALS: BP 128/82
--- NOTE | 2021-01-28 06:30 | NUR ---
PT IS VERY FLUSTRATED THIS AM. UPSET WITH STAFF NOT IMMEDIATELY REMOVING BIPAP AND PUTTING ON HFC SO THAT HE COULD BE UPTO BSC. DISCUSSED THIS AND OTHER THINGS WITH PT, CALMER BUT REMAINS ANXIOUS. PT DESATS EASILY WITH O2 CHANGES AND SLOW RECOVERY. DRSG CHANGE COMPLETED TO LT UPPER MIDLINE. TELEMETRY CONT TO SHOW SR TO SB. HS GOALS OF REST, SAFETY AND OXYGENATION ACHIEVED. HOURLY ROUNDING OBSERVED.
[2021-01-28 08:31] VITALS: BP 142/81
--- NOTE | 2021-01-28 10:54 | NUR ---
ASSUMED CARE OF PT THIS AM AROUND 07- VICE PRESIDENT DIGITAL STRATEGIST IN PLACE ORDERED, TRACING SR/SB- UPON ASSESSMENT PT NOTED TO BE RESTING IN BED- PT A&O X4- CONT OF B/B- UP AD-BANDAR IN ROOM, STEADY GAIT NOTED- LCTA/DIMINISHED IN BASES, LABORED BREATHING NOTED- NEW ORDERS NOTED PER PULM FOR CHEST X-RAY AND LASIX THIS AM- VSS, O2 SAT 91% ON 15L THIS AM- ABD SOFT/ROUND/NON-TENDER, BS X4 QUADS- DIARRHEA CONTINUES THIS SHIFT- IV NOTED RIGHT FA INTACT AND SL; IV PICC TO LUE C/D/I AND SL- IV ABT GIVEN THIS AM PRESCRIBED-ISOLATION REMAINES INTACT R/T COVID- PT DENIES ANY C/O PAIN- CALL LIGHT AND PERSONAL BELONGINGS WITH IN REACH- ALL NEEDS MET AT THIS TIME
[2021-01-28 12:00] VITALS: BP 131/89
--- NOTE | 2021-01-28 14:22 | NUR ---
Nutrition: Pt admitted with COVID. In isolation. Per chart review, pt is eating well. Wt: 239#. Assessed for LOS. He desats when off O2. Labs: BG 159-200, albumin 3.1, prealbumin 19.1. No nutrition concerns at [facility]. Low risk.
[2021-01-28 16:00] VITALS: BP 146/93
[2021-01-28 20:00] VITALS: BP 117/80
--- NOTE | 2021-01-28 20:00 | NUR ---
RECEIVED REPORT AND ASSUMED CARE OF PT, ASSESSMENT COMPLETED. SITTING UP IN CHAIR, IN GOOD SPIRITS. SOA WITH TALKING, O2 ON AT 15L/HFC. TELEMETRY ON SHOWING SR. WILL CONT TO MONITOR AND ASSIST NEEDED.
[2021-01-29] VITALS (7 sets, daily range): BP systolic 122–146; BP diastolic 76–93
[2021-01-29 05:25] LABS: HEMATOCRIT 45.8 % (42.0-52.0); HEMOGLOBIN 16.4 gm/dL (14.0-18.0); MCH 30.1 pg (26.0-34.0); MCHC 35.8 g/dL (28.0-37.0); MPV 6.3 fl. (7.2-11.1); RBC 5.45 mil/uL (4.50-6.00); RDW-CV 13.8 % (10.5-14.5); WBC 17.8 thou/uL (4.0-11.0)
[2021-01-29 05:34] LABS: CALCIUM 8.3 mg/dL (8.5-10.1); CREATININE 0.9 mg/dL (0.6-1.3); POTASSIUM 4.6 mmol/L (3.5-5.1)
--- NOTE | 2021-01-29 06:36 | NUR ---
SLEPT WELL TONIGHT. TOLERATED BIPAP, XANAX GIVEN AT HS. NO CHANGE IN ASSESSMENT. HS GOALS OF REST, SAFETY, AND OXYGENATION ACHIEVED. HOURLY ROUNDING OBSERVED.
--- NOTE | 2021-01-29 13:54 | NUR ---
Covid positive. Requiring 14L, continue to wean.
--- NOTE | 2021-01-29 18:59 | NUR ---
Discusssed with patient some of the dynamics of health care, medical practice, and standards of care combined with individual variants and necessary adjustments that often arise. Pt had expressed some concerns regarding apparent lack of continuity. Pt verbalized a better understanding of the fluid nature of health care practice among the various disciplines, and that his recovery will involve "waxes and wanes." O2 is at 14L per HFC. Pt desats to 80s with activity. Pt had BM X3, and voiding well following dose of furosemide. Pt up in chair for entire shift, and states that he is feeling tired this evening. Will continue to monitor.
[2021-01-30] VITALS (16 sets, daily range): BP systolic 102–144; BP diastolic 60–105
--- NOTE | 2021-01-30 05:19 | NUR ---
PT SLEPT ON AND OFF THIS SHIFT. ASSESSMENT DOCUMENTED. MEDS GIVEN PER E-SEP. PT REPORTED LEFT SIDED BACK AND LUNG PAIN, DR NOTIFIED, ORDERS RECIEVED. PT ON 15L NC WHILE AWAKE, BIPAP WHILE SLEEPING. ANXIETY MEDS GIVEN PER E-SEP. PT ABLE TO MAKE NEEDS KNOWN. WILL CONTINUE WITH PLAN OF CARE.
--- NOTE | 2021-01-30 07:14 | NUR ---
PT CAME OFF BIPAP AND WAS SATTING 60-70'S ON 15L NC, RT UP TO ROOM TO PLACE PT ON HHFNC. PT ON 55L AT 100% SATTING 89-93%. DR NOTIFIED. XANEX GIVEN PER E-MAR. REPORT GIVEN TO ONCOMING NURSE.
[2021-01-30 07:27] LABS: HEMATOCRIT 50.2 % (42.0-52.0); HEMOGLOBIN 17.6 gm/dL (14.0-18.0); MCH 29.9 pg (26.0-34.0); MCHC 35.1 g/dL (28.0-37.0); MCV 85.2 fL (80.0-100.0); MPV 6.4 fl. (7.2-11.1); RBC 5.89 mil/uL (4.50-6.00); RDW-CV 13.7 % (10.5-14.5); WBC 18.4 thou/uL (4.0-11.0)
[2021-01-30 07:31] LABS: CALCIUM 8.1 mg/dL (8.5-10.1); CREATININE 0.9 mg/dL (0.6-1.3); MAGNESIUM 2.2 mg/dL (1.8-2.4); POTASSIUM 4.3 mmol/L (3.5-5.1)
--- NOTE | 2021-01-30 09:23 | NUR ---
ASSUMED CARE OF PT THIS AM AROUND 0715- RADIOLOGIC THERAPIST IN PLACE ORDERED, TRACING ST- UPON ASSESSMENT PT NOTED TO BE LAYING IN BED, LABORED ENZOTING NOTED-O2 SAT HIGH 80'S ON HEATED HIGH FLOW 100% AND 60- PT REFUSING BIPAP- C/O OF LEFT SIDED CHEST PAIN- LCTA, CRACKLES TO BASES- ASSESSMENT FINDINGS WELL PT COMPLAINTS AND RECENT CHEST X-RAY COMMUNICATED TO VIA YOU CALL THIS AM- SURGERY CONSULT NOTED THIS AM R/T PNEUMOMEDASTINUM-PT A&O X4- CONT OF B/B- SBA WITH TRANSFERS FOR SAFETY- ABD SOFT/ROUND/NON-TENDER, BS X4 QUADS- LAST BM REPORTED 01/29/21- IV NOTED TO RIGHT FA INTACT, LUE MIDLINE C/D/I- PT REFUSSING BREAKFAST THIS AM R/T HARD TIME BREATHING- PRN HYDROCODONE GIVEN THIS AM R/T LEFT SIDE CHEST PAIN- ISOLATION REMAINS IN PLACE R/T COVID- CALL LIGHT AND PERSONAL BELONGINGS WITH IN REACH- HOURLY ROUNDS IN PLACE R/T SAFETY/NEEDS- ALL NEEDS MET AT THIS TIME
[2021-01-30 11:48] LABS: BE 0.1 mmol/L (-2 to +3); PCO2 30.4 mmHg (35.0-45.0); pH 7.479 (7.340-7.450)
[2021-01-30 11:49] LABS: PO2 48.4 mmHg (75.0-100.0)
--- NOTE | 2021-01-30 12:40 | NUR ---
Patient transferred to ICU from room 200. Per nursing, patient maxed out on heated high flow O2 support and now has small pneumothorax on the right side, per pulm. Patient may need a chest tube placed. CM to continue to follow
[2021-01-30 15:25] LABS: CREATININE 1.1 mg/dL (0.6-1.3); MAGNESIUM 2.2 mg/dL (1.8-2.4); POTASSIUM 5.1 mmol/L (3.5-5.1)
--- NOTE | 2021-01-30 15:27 | 2DMMODE ---
[place] [address] 2 D/M-MODE ECHOCARDIOGRAM Name: CARLA GRIGGS Room: [address] IN [facility]#: [id number] Admission: 01/21/21 Attend Phys: Bill Hedrick Discharge: Date of : 78 Date of Service: 01/30/21 1527 Report #: [id number] THIS REPORT FOR: cc: Lita Shi Maggie M. DO Blick, David R. MD [facility] ~ APPROVED REPORT Study performed: 01/30/2021 14:29:21 EXAM: Comprehensive 2D, Doppler, and color-flow Echocardiogram Patient Location: In-Patient Room #: 001 Status: routine BSA: 2.30 Other Information Study Quality: Technically Difficult Technically limited study due to inability to position patient, subcostal views only views available. Indications Dyspnea hypoxia 2D Dimensions IVSd: 13.19 (7-11mm) LVOT Diam: 21.47 (18-24mm) LVDd: 43.83 mm PWd: 12.65 (7-11mm) LVDs: 29.77 (25-40mm) Aortic Root: 34.65 mm Pulmonary Valve PV Peak Geoffrey.: 0.90 m/s PV Peak Gr.: 3.23 mmHg Tricuspid Valve RAP Estimate: 5.00 mmHg TR Peak Gr.: 29.45 mmHg RVSP: 34.00 mmHg PA Pressure: 34.00 mmHg Left Ventricle The left ventricle is normal size. There is normal LV segmental wall motion. Mild concentric left ventricular [place] [address] 2 D/M-MODE ECHOCARDIOGRAM Name: CARLA GRIGGS Shwetha Room: [address] IN [facility]#: [id number] Admission: 01/21/21 Attend Phys: Bill Hedrick Discharge: Date of : 78 Date of Service: 01/30/21 1527 Report #: [id number] ventricular systolic function is normal. The left ventricular ejection fraction is within the normal range. LVEF is 55-60%. This study is not technically sufficient to allow evaluation of the LV diastolic function. Right Ventricle The right ventricle is normal size. The right ventricular systolic function is normal. Atria The left atrium size is normal. The right atrium size is normal. Aortic Valve The aortic valve is normal in structure. No aortic regurgitation is present. There is no aortic valvular stenosis. Mitral Valve The mitral valve is normal in structure. There is no mitral valve regurgitation noted. Tricuspid Valve The tricuspid valve is normal in structure. Trace tricuspid regurgitation. estimated pa pressure 35 mm Hg Pulmonic Valve The pulmonary valve is normal in structure. There is no pulmonic valvular regurgitation. Great Vessels The aortic root is normal in size. IVC is normal in size and collapses >50% with inspiration. Pericardium There is no pericardial effusion. <Conclusion> Mild concentric left ventricular hypertrophy. LVEF is 55-60%. Trace tricuspid regurgitation. estimated pa pressure 35 mm Hg <ELECTRONICALLY SIGNED> By: Tio Baird MD, [facility] 01/30/21 1527 1527 1527 Tio Baird MD, FAC /INF
[2021-01-30 16:25] LABS: URINE BILIRUBIN NEGATIVE (Negative); URINE BLOOD NEGATIVE (Negative); URINE CLARITY CLEAR; URINE COLOR YELLOW; URINE GLUCOSE-RANDOM NEGATIVE (Negative); URINE KETONES NEGATIVE (Negative); URINE LEUKOCYTES-REFLEX NEGATIVE (Negative); URINE NITRITE-REFLEX NEGATIVE (Negative); URINE PROTEIN NEGATIVE (Negative); URINE UROBILINOGEN 0.2 E.U./dl (0.2-1.0)
[2021-01-30 20:58] LABS: CALCIUM 8.5 mg/dL (8.5-10.1); CREATININE 1.1 mg/dL (0.6-1.3); POTASSIUM 4.2 mmol/L (3.5-5.1)
--- NOTE | 2021-01-30 22:16 | NUR ---
PT STARTED ON BIPAP 04/29/10% SPO2 84-87% WILL CONT TO WAIT FOR PENDING ORDER FROM DR. CHÁVEZ
[2021-01-31] VITALS (13 sets, daily range): BP systolic 107–130; BP diastolic 77–93
[2021-01-31 04:15] LABS: HEMATOCRIT 47.9 % (42.0-52.0); HEMOGLOBIN 17.1 gm/dL (14.0-18.0); MCHC 35.6 g/dL (28.0-37.0); MCV 84.3 fL (80.0-100.0); MPV 6.9 fl. (7.2-11.1); NUCLEATED RBCS 0 /100WBC; PLATELET COUNT* 228 thou/uL (150-400); RBC 5.68 mil/uL (4.50-6.00); RDW-CV 13.4 % (10.5-14.5); WBC 11.4 thou/uL (4.0-11.0)
[2021-01-31 04:44] LABS: ALBUMIN 3.3 g/dL (3.4-5.0); CALCIUM 8.4 mg/dL (8.5-10.1); CREATININE 1.2 mg/dL (0.6-1.3); MAGNESIUM 2.8 mg/dL (1.8-2.4); POTASSIUM 4.1 mmol/L (3.5-5.1); TOTAL BILIRUBIN 1.8 mg/dL (<0.1-1.0); TOTAL PROTEIN 7.1 g/dL (6.4-8.2)
[2021-01-31 05:42] LABS: ABSOLUTE LYMPHOCYTES 0.5 thou/uL (0.8-5.3); ABSOLUTE MONOCYTES 0.2 thou/uL (0.0-1.2); ABSOLUTE NEUTROPHILS 10.7 thou/uL (1.6-8.1); ANISOCYTOSIS 1+; PLATELET ESTIMATE ADEQUATE; POIKILOCYTOSIS 1+
[2021-01-31 07:59] LABS: BE -0.9 mmol/L (-2 to +3); PCO2 36.2 mmHg (35.0-45.0); PO2 76.3 mmHg (75.0-100.0)
--- NOTE | 2021-01-31 14:12 | NUR ---
ICU Rounds: Patient currently on bipap at 100% FiO2. R side chest tube placed 01/30/21 for pneumothorax. Goal at this time is to avoid intubation. Spoke with Param and updated on current plan of care. CM to continue to follow for safe dc planning
--- NOTE | 2021-01-31 15:09 | NUR ---
RIGHT BASILC VESSEL ACCESSED FOR 5 SAMI TRIPLE LUMEN PICC. LINE PRE-TRIMMED TO 41 CM AND ADVANCED TO THE ZERO MORENITA WITH NO RESISTANCE MET. UPPER ARM CIRCUMFERENCE ABOVE INSERTION SITE=13 1/2". SHERLOCK MAGNET AND 3CG CONFIRMATION OF TIP TERMINATION AT THE CAVOATRIAL JUNCTION APPRECIATED. GUIDE WIRE REMOVED, LINE FLUSHED AND INSERTION SITE DRESSED. REPORT GIVEN TO DEAN KEMP.
[2021-01-31 18:24] LABS: CALCIUM 8.4 mg/dL (8.5-10.1); CREATININE 1.4 mg/dL (0.6-1.3); POTASSIUM 4.2 mmol/L (3.5-5.1)
[2021-02-01] VITALS (23 sets, daily range): BP systolic 98–143; BP diastolic 59–95
[2021-02-01 05:26] LABS: HEMATOCRIT 43.8 % (42.0-52.0); HEMOGLOBIN 15.6 gm/dL (14.0-18.0); MCH 30.3 pg (26.0-34.0); MCHC 35.7 g/dL (28.0-37.0); MCV 84.9 fL (80.0-100.0); RBC 5.16 mil/uL (4.50-6.00); RDW-CV 13.4 % (10.5-14.5); WBC 15.8 thou/uL (4.0-11.0)
[2021-02-01 05:48] LABS: CREATININE 1.1 mg/dL (0.6-1.3); POTASSIUM 4.4 mmol/L (3.5-5.1)
--- NOTE | 2021-02-01 09:50 | NUR ---
ICU Rounds: Patient currently on bipap at 30% FiO2. Continue low dose precedex, abx and steroids. Patient having increased anxiety. R chest tube in place. Therapies ordered for patient. CM to continue to follow for safe dc planning
[2021-02-01 15:26] LABS: MAGNESIUM 3.1 mg/dL (1.8-2.4); POTASSIUM 4.2 mmol/L (3.5-5.1)
--- NOTE | 2021-02-01 19:43 | NUR ---
PT OUT OF BED THIS AM, STB ASSIST, SAT IN A RECLINER WHOLE DAY. TOLERATED HEATED HIGH FLOW AT 100% THROUGHOUT THE SHIFT. PRECEDEX CONTD AT 0.4 MCG/KG/HR RT CHEST TUBE IN PLACE. OKAY BY SPEECH FOR REGULAR DIET, ENCOURAGED INTAKE. PT STATES HE'S FINALLY EATING SOMETHING AFTER THREE DAYS AND FEELS BETTER TODAY. BM x2 THIS SHIFT.
[2021-02-02] VITALS (12 sets, daily range): BP systolic 105–150; BP diastolic 62–90
[2021-02-02 04:53] LABS: ABSOLUTE LYMPHOCYTES 0.3 thou/uL (0.8-5.3); ABSOLUTE MONOCYTES 0.6 thou/uL (0.0-1.2); ABSOLUTE NEUTROPHILS 13.4 thou/uL (1.6-8.1); EOSINOPHILS 0.2 %; HEMATOCRIT 40.5 % (42.0-52.0); HEMOGLOBIN 14.3 gm/dL (14.0-18.0); LYMPHOCYTES 1.8 %; MCH 30.2 pg (26.0-34.0); MCHC 35.3 g/dL (28.0-37.0); MCV 85.5 fL (80.0-100.0); MONOCYTES 4.4 %; MPV 6.9 fl. (7.2-11.1); NUCLEATED RBCS 0 /100WBC; PLATELET COUNT* 217 thou/uL (150-400); POLYS 93.6 %; RBC 4.73 mil/uL (4.50-6.00); RDW-CV 13.4 % (10.5-14.5); WBC 14.3 thou/uL (4.0-11.0)
[2021-02-02 05:14] LABS: ALBUMIN 2.7 g/dL (3.4-5.0); CALCIUM 7.6 mg/dL (8.5-10.1); CREATININE 0.8 mg/dL (0.6-1.3); MAGNESIUM 2.7 mg/dL (1.8-2.4); POTASSIUM 4.5 mmol/L (3.5-5.1); TOTAL BILIRUBIN 1.2 mg/dL (<0.1-1.0); TOTAL PROTEIN 5.8 g/dL (6.4-8.2)
[2021-02-03] VITALS (19 sets, daily range): BP systolic 104–145; BP diastolic 72–111
[2021-02-03 06:11] LABS: ALBUMIN 2.7 g/dL (3.4-5.0); CALCIUM 7.6 mg/dL (8.5-10.1); CREATININE 0.6 mg/dL (0.6-1.3); MAGNESIUM 2.3 mg/dL (1.8-2.4); POTASSIUM 4.8 mmol/L (3.5-5.1); TOTAL BILIRUBIN 1.3 mg/dL (<0.1-1.0); TOTAL PROTEIN 5.6 g/dL (6.4-8.2)
[2021-02-04] VITALS (7 sets, daily range): BP systolic 84–110; BP diastolic 62–81
[2021-02-04 06:13] LABS: HEMATOCRIT 41.5 % (42.0-52.0); HEMOGLOBIN 14.5 gm/dL (14.0-18.0); MCH 30.1 pg (26.0-34.0); MCHC 34.9 g/dL (28.0-37.0); MCV 86.1 fL (80.0-100.0); RBC 4.82 mil/uL (4.50-6.00); RDW-CV 13.7 % (10.5-14.5)
[2021-02-04 06:24] LABS: ALBUMIN 3.1 g/dL (3.4-5.0); CREATININE 0.6 mg/dL (0.6-1.3); POTASSIUM 4.3 mmol/L (3.5-5.1); TOTAL BILIRUBIN 1.3 mg/dL (<0.1-1.0); TOTAL PROTEIN 6.2 g/dL (6.4-8.2)
--- NOTE | 2021-02-04 10:09 | NUR ---
ICU Rounds: Patient currently on heated hi-flow NC at 55L (85%). Chest tube in place for pneumothorax. CM to continue to follow
[2021-02-04 12:09] LABS: BE -2.4 mmol/L (-2 to +3); PO2 VENOUS 57.9 mmHg (35.0-45.0)
--- NOTE | 2021-02-04 13:55 | NUR ---
Nutrition: reassessment. Pt was admitted with COVID. He is now on hi-lidia NC. Okayed for regular diet. He is tolerating diet. Feels better. +BM. RX: steroids, insulin, vitamin C. Wt was 239# on 01/28, today is recorded as 220#. PLEASE REWEIGH FOR ACCURACY. Unable to get ahold of RN today on two attempts. Otherwise, low nutrition risk. RD available via consult if needed.
[2021-02-04 16:17] LABS: CALCIUM 7.6 mg/dL (8.5-10.1); CREATININE 0.6 mg/dL (0.6-1.3); MAGNESIUM 2.2 mg/dL (1.8-2.4); POTASSIUM 4.5 mmol/L (3.5-5.1)
[2021-02-05] VITALS (24 sets, daily range): BP systolic 84–126; BP diastolic 57–77
[2021-02-05 05:05] LABS: HEMOGLOBIN 13.5 gm/dL (14.0-18.0); MCH 29.8 pg (26.0-34.0); MCHC 35.5 g/dL (28.0-37.0); NUCLEATED RBCS 0 /100WBC; PLATELET COUNT* 220 thou/uL (150-400); RBC 4.52 mil/uL (4.50-6.00); RDW-CV 13.6 % (10.5-14.5); WBC 12.3 thou/uL (4.0-11.0)
[2021-02-05 06:06] LABS: ALBUMIN 2.9 g/dL (3.4-5.0); CALCIUM 8.1 mg/dL (8.5-10.1); CREATININE 0.7 mg/dL (0.6-1.3); MAGNESIUM 2.2 mg/dL (1.8-2.4); POTASSIUM 4.2 mmol/L (3.5-5.1); TOTAL BILIRUBIN 1.9 mg/dL (<0.1-1.0); TOTAL PROTEIN 5.7 g/dL (6.4-8.2)
--- NOTE | 2021-02-05 06:19 | NUR ---
ASSUMED PATIENT CARE AT 1900. ASSESSMENTS COMPLETED CHARTED. CARDIAC MONITORING IN PLACE. HOURLY ROUNDING IN PLACE FOR PATIENT SAFETY. FALL PRECAUTIONS IN PLACE FOR PATIENT SAFETY. BED LOCKED AND IN LOWEST POSITION. CLWR.
[2021-02-05 09:15] LABS: ABSOLUTE LYMPHOCYTES 0.5 thou/uL (0.8-5.3); ABSOLUTE MONOCYTES 0.1 thou/uL (0.0-1.2); ABSOLUTE NEUTROPHILS 11.7 thou/uL (1.6-8.1); PLATELET ESTIMATE ADEQUATE
--- NOTE | 2021-02-05 15:17 | NUR ---
PLAN OF CARE: D/C'D ISOLATION D/T >21 DAYS POST COVID DX. PT IS SLOWLY PROGRESSING TOWARDS GOALS.
--- NOTE | 2021-02-05 20:53 | NUR ---
PATIENT REFUSED TO GET KUB THIS MORNING AND THIS AFTERNOON. THIS NURSE TALKED WITH PATIENT ABOUT IT AND HE ASKED WHY HE WAS HAVING THE TEST. i LET HIM KNOW THAT DR CHÁVEZ JUST WANTED TO BE SURE HE DID NOT HAVE AN ILIUS OR CONSTIPATION. PATIENT STATES THAT HE HAS BEEN HAVING STOOLS AND IT IS NORMAL FOR HIM TO HAVE SOFT AND UNFORMED STOOLS. PATIENT DID NOT WANT TO DO THE KUB BECAUSE HE DID NOT WANT TO GET BACK IN BED. NO FURTHER CONCERNS AT THIS TIME. WILL CONTINUE TO MONITOR AND CARE PER PLAN OF CARE.
[2021-02-06] VITALS (21 sets, daily range): BP systolic 90–138; BP diastolic 46–86
[2021-02-06 04:46] LABS: HEMATOCRIT 30.9 % (42.0-52.0); MCH 30.6 pg (26.0-34.0); MCHC 36.1 g/dL (28.0-37.0); MCV 84.7 fL (80.0-100.0); MPV 6.7 fl. (7.2-11.1); RBC 3.65 mil/uL (4.50-6.00); RDW-CV 13.6 % (10.5-14.5); WBC 11.5 thou/uL (4.0-11.0)
[2021-02-06 04:48] LABS: HEMOGLOBIN 11.2 gm/dL (14.0-18.0)
[2021-02-06 05:02] LABS: ALBUMIN 2.8 g/dL (3.4-5.0); CALCIUM 7.2 mg/dL (8.5-10.1); CREATININE 0.6 mg/dL (0.6-1.3); POTASSIUM 4.3 mmol/L (3.5-5.1); TOTAL BILIRUBIN 1.6 mg/dL (<0.1-1.0); TOTAL PROTEIN 5.3 g/dL (6.4-8.2)
--- NOTE | 2021-02-06 13:38 | NUR ---
ICU Rounds: Patient is no longer in COVID-19 isolation. R chest tube in place. No air leak noted by Miramontes yesterday. Plan to connect chest tube to water seal. Patient remains on high flow NC at 55L (90% FiO2) and continued precedex. Family at bedside. CM to continue to follow
[2021-02-07] VITALS (58 sets, daily range): BP systolic 73–196; BP diastolic 25–111
--- NOTE | 2021-02-07 04:38 | NUR ---
ASSUMED CARE AT 1910H, ON RECLINING CHAIR AND ON HEATED HIFLOW AT MAX. CHEST TUBE INTACT AND TIDALING. PT WAS ANXIOUS AND IN PAIN, PRN MEDS GIVEN. HE WAS MORE ANXIOUS WHEN HE SEES HIS HEART RATE GOES UP TO 110. RE-EDUCATE PT AND I SUGGESTED TO PUT HIS MONITOR IN PRIVACY MODE BUT PT DON'T WANT HIS MONITOR OFF. PULMO INFORMED PT'S SITUATION. PRECEDEX TITRATED UP AND TO DECREASE AT 0600H. ATIVAN NOT WORKING AND REQUESTING TO CHANGE IT PER PT. HE WAS FRUSTRATED THAT HIS TORADAL PAIN MED WAS DISCONTINUED. ACCORDING TO HIM, TORADOL LAST LONGER FOR HIM. CONTINUE MONITORING AND TOWARDS GOALS.
[2021-02-07 05:53] LABS: ABSOLUTE EOSINOPHILS 0.1 thou/uL (0.0-0.7); ABSOLUTE LYMPHOCYTES 0.7 thou/uL (0.8-5.3); ABSOLUTE MONOCYTES 0.6 thou/uL (0.0-1.2); ABSOLUTE NEUTROPHILS 13.9 thou/uL (1.6-8.1); BASOPHILS 0.2 %; EOSINOPHILS 0.3 %; HEMATOCRIT 30.8 % (42.0-52.0); HEMOGLOBIN 11.1 gm/dL (14.0-18.0); LYMPHOCYTES 4.5 %; MONOCYTES 3.7 %; MPV 6.9 fl. (7.2-11.1); NUCLEATED RBCS 0 /100WBC; PLATELET COUNT* 198 thou/uL (150-400); POLYS 91.3 %; RBC 3.59 mil/uL (4.50-6.00); RDW-CV 13.8 % (10.5-14.5); WBC 15.3 thou/uL (4.0-11.0)
[2021-02-07 06:07] LABS: ALBUMIN 3.1 g/dL (3.4-5.0); CALCIUM 7.7 mg/dL (8.5-10.1); CREATININE 0.5 mg/dL (0.6-1.3); POTASSIUM 4.4 mmol/L (3.5-5.1); TOTAL BILIRUBIN 1.4 mg/dL (<0.1-1.0); TOTAL PROTEIN 5.6 g/dL (6.4-8.2)
--- NOTE | 2021-02-07 06:59 | NUR ---
PT REFUSED TO GO BACK TO HIS BED FOR HIS ABD XRAY.
--- NOTE | 2021-02-07 15:57 | NUR ---
ICU Rounds: Heated high flow at 55L and 100% FiO2. Continue precedex for anxiety and to avoid intubation. IV lasix given to avoid drop in BP. CM to continue to follow
[2021-02-07 18:45] LABS: CALCIUM 8.2 mg/dL (8.5-10.1); CREATININE 0.6 mg/dL (0.6-1.3); MAGNESIUM 2.2 mg/dL (1.8-2.4); POTASSIUM 4.5 mmol/L (3.5-5.1)
[2021-02-07 21:11] LABS: BE -0.6 mmol/L (-2 to +3); PCO2 46.3 mmHg (35.0-45.0); pH 7.356 (7.340-7.450)
[2021-02-07 21:14] LABS: PO2 46.4 mmHg (75.0-100.0)
[2021-02-08] VITALS (58 sets, daily range): BP systolic 80–296; BP diastolic 50–147
[2021-02-08 03:45] LABS: ABSOLUTE BASOPHILS 0.1 thou/uL (0.0-0.2); ABSOLUTE EOSINOPHILS 0.1 thou/uL (0.0-0.7); ABSOLUTE LYMPHOCYTES 0.6 thou/uL (0.8-5.3); ABSOLUTE MONOCYTES 0.6 thou/uL (0.0-1.2); ABSOLUTE NEUTROPHILS 21.8 thou/uL (1.6-8.1); BASOPHILS 0.5 %; EOSINOPHILS 0.4 %; LYMPHOCYTES 2.4 %; MCH 30.2 pg (26.0-34.0); MCV 86.3 fL (80.0-100.0); MONOCYTES 2.4 %; MPV 6.8 fl. (7.2-11.1); NUCLEATED RBCS 0 /100WBC; PLATELET COUNT* 224 thou/uL (150-400); POLYS 94.3 %; RBC 4.29 mil/uL (4.50-6.00); RDW-CV 13.8 % (10.5-14.5); WBC 23.1 thou/uL (4.0-11.0)
[2021-02-08 03:58] LABS: PHOSPHORUS* 5.8 mg/dL (2.5-4.9)
[2021-02-08 04:20] LABS: ALBUMIN 3.7 g/dL (3.4-5.0); CALCIUM 8.3 mg/dL (8.5-10.1); CREATININE 0.7 mg/dL (0.6-1.3); MAGNESIUM 2.5 mg/dL (1.8-2.4); POTASSIUM 4.9 mmol/L (3.5-5.1); TOTAL BILIRUBIN 1.2 mg/dL (<0.1-1.0); TOTAL PROTEIN 6.4 g/dL (6.4-8.2)
--- NOTE | 2021-02-08 05:38 | NUR ---
ASSUMED CARE AT 1900H, ON HEATED HIFLOW AND NRB MASK. PT WAS ANXIOUS AND TACHYPNEA, PRECEDEX INCREASED. INFORMED PULMO, WITH INSTRUCTION TO TRY BIPAP FIRST AND IF IT DOESN'T HELP INTUBATE PT. PT DETERIORATING AND AGREED FOR INTUBATION, ER DOCTOR INTUBATED PT. PULMO AWARE WITH ORDERS MADE AND CARRIED OUT. PT DEVELOPED AFIB WITH ST ELEVATION, EKG IN CHART AND NEGATIVE TROPONIN. KEPT PT ON 100%. CONTINUE MONITORING AND TOWARDS GOALS. ON VERSED AT 5MG/HR, FENTANYL 60MICS AND PRECEDEX AT 1MIC. PT CAN BE AWAKEN WITH VERBAL STIMULI.
[2021-02-08 07:38] LABS: PO2 98.8 mmHg (75.0-100.0); pH 7.339 (7.340-7.450)
[2021-02-08 07:39] LABS: PCO2 57.2 mmHg (35.0-45.0)
--- NOTE | 2021-02-08 09:55 | NUR ---
DR UMANA ON UNIT, NOTIFIED CHEST TUBE STILL IN PLACE. STATES TO LEAVE IN PLACE FOR NOW BASED ON SURGERY'S NOTE.
--- NOTE | 2021-02-08 10:06 | NUR ---
ICU Rounds: Patient intubated last night (02/07; FiO2 100% and peep 5). Unable to maintain oxygen needs with hi-flow and bipap. Fent and precedex gtt in place. Versed for sedation. Chest remains in place. Patient to stay through the weekend.
--- NOTE | 2021-02-08 14:25 | EKG ---
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 : 1980 Requested By: Moiz Montes Order Number: [id number] Reading MD: Marlo Steiner Measurements Intervals [place] Rate: 68 P: IN: QRS: -12 QRSD: 108 T: 3 QT: 438 QTc: 466 Interpretive Statements Atrial fibrillation ST elev, probable normal early repol pattern Baseline wander in lead(s) V3 Compared to ECG 01/22/2021 13:06:33 ST (T wave) deviation now present Sinus tachycardia no longer present T-wave abnormality no longer present Atrial fibrillation has developed Electronically Signed On 02-08-2021 14:25:44 CDT by Marlo Steiner [email or web address] <ELECTRONICALLY SIGNED> By: Marlo Steiner MD, [facility] 02/08/21 1425 2 2 Marlo Steiner MD, [facility] /EPI
[2021-02-08 15:43] LABS: ABSOLUTE BASOPHILS 0.1 thou/uL (0.0-0.2); ABSOLUTE LYMPHOCYTES 0.5 thou/uL (0.8-5.3); ABSOLUTE MONOCYTES 1.2 thou/uL (0.0-1.2); ABSOLUTE NEUTROPHILS 22.6 thou/uL (1.6-8.1); BASOPHILS 0.4 %; HEMATOCRIT 34.9 % (42.0-52.0); HEMOGLOBIN 12.3 gm/dL (14.0-18.0); LYMPHOCYTES 2.2 %; MCH 30.2 pg (26.0-34.0); MCHC 35.2 g/dL (28.0-37.0); MCV 85.8 fL (80.0-100.0); MONOCYTES 4.9 %; MPV 6.8 fl. (7.2-11.1); NUCLEATED RBCS 0 /100WBC; PLATELET COUNT* 216 thou/uL (150-400); POLYS 92.5 %; RBC 4.06 mil/uL (4.50-6.00); RDW-CV 13.6 % (10.5-14.5); WBC 24.4 thou/uL (4.0-11.0)
[2021-02-08 15:54] LABS: CALCIUM 8.1 mg/dL (8.5-10.1); CREATININE 0.5 mg/dL (0.6-1.3); MAGNESIUM 2.4 mg/dL (1.8-2.4); POTASSIUM 5.4 mmol/L (3.5-5.1)
[2021-02-08 16:22] LABS: BE 4.1 mmol/L (-2 to +3); pH 7.385 (7.340-7.450)
[2021-02-08 16:24] LABS: PCO2 51.8 mmHg (35.0-45.0)
[2021-02-08 16:25] LABS: PO2 137.4 mmHg (75.0-100.0)
[2021-02-08 20:18] LABS: BE 2.6 mmol/L (-2 to +3); PO2 95.3 mmHg (75.0-100.0)
[2021-02-08 20:21] LABS: PCO2 56.1 mmHg (35.0-45.0)
[2021-02-09] VITALS (111 sets, daily range): BP systolic 69–137; BP diastolic 46–80
[2021-02-09 02:00] LABS: HEMOGLOBIN 13.8 gm/dL (14.0-18.0); MCH 30.2 pg (26.0-34.0); MCHC 34.6 g/dL (28.0-37.0); MCV 87.5 fL (80.0-100.0); MPV 6.6 fl. (7.2-11.1); NUCLEATED RBCS 0 /100WBC; PLATELET COUNT* 263 thou/uL (150-400); RBC 4.57 mil/uL (4.50-6.00); RDW-CV 13.5 % (10.5-14.5)
[2021-02-09 02:03] LABS: WBC 42.4 thou/uL (4.0-11.0)
[2021-02-09 02:13] LABS: ALBUMIN 3.7 g/dL (3.4-5.0); CALCIUM 8.6 mg/dL (8.5-10.1); CREATININE 0.7 mg/dL (0.6-1.3); MAGNESIUM 2.3 mg/dL (1.8-2.4); POTASSIUM 4.7 mmol/L (3.5-5.1); TOTAL BILIRUBIN 1.8 mg/dL (<0.1-1.0); TOTAL PROTEIN 7.3 g/dL (6.4-8.2)
[2021-02-09 03:35] LABS: ABSOLUTE LYMPHOCYTES 0.4 thou/uL (0.8-5.3); ABSOLUTE MONOCYTES 1.3 thou/uL (0.0-1.2); ABSOLUTE NEUTROPHILS 40.7 thou/uL (1.6-8.1); PLATELET ESTIMATE ADEQUATE
[2021-02-09 06:06] LABS: URINE BILIRUBIN NEGATIVE (Negative); URINE BLOOD 3+ (Negative); URINE CLARITY CLEAR; URINE COLOR YELLOW; URINE GLUCOSE-RANDOM NEGATIVE (Negative); URINE KETONES NEGATIVE (Negative); URINE LEUKOCYTES-REFLEX NEGATIVE (Negative); URINE NITRITE-REFLEX NEGATIVE (Negative); URINE PROTEIN NEGATIVE (Negative); URINE SPECIFIC GRAVITY >= 1.030 (1.005-1.030); URINE UROBILINOGEN 0.2 E.U./dl (0.2-1.0)
[2021-02-09 08:18] LABS: BACTERIA-REFLEX 1-9 Few /HPF (None Seen); CASTS None Seen /LPF (None Seen); CRYSTALS None Seen /LPF (None Seen); SQUAMOUS 0-3 Few /LPF (0-3); URINE RBC 0-2 Rare /HPF (0-2); URINE WBC-REFLEX 0-5 Rare /HPF (0-5)
[2021-02-09 08:30] LABS: BE 2.2 mmol/L (-2 to +3); pH 7.316 (7.340-7.450)
[2021-02-09 08:32] LABS: PCO2 59.9 mmHg (35.0-45.0); PO2 127.6 mmHg (75.0-100.0)
--- NOTE | 2021-02-09 08:42 | NUR ---
ASSUMED PATIENT CARE AT 1900. ASSESSMENTS COMPLETED CHARTED. CARDIAC MONITORING IN PLACE. PATIENT UN-PRONED AT 0000 DUE TO PATIENT NOT TOLERATING THE PRONE POSITION WITH LOW O2 SATS. ONCE PATIENT WAS SUPINE O2 SATS INCREASED AND. SEDATION MEDICATIONS TITRATED FOR RASS OF -2. PATIENT HR STEADILY INCREASED DURING SHIFT DESPITE INCREASED SEDATION AND STABLE BP. NO FEVERS. LABS DRAWN, WBC ELEVATED, DR. LOMBARDI NOTIFIED, NEW ORDERS RECEIVED AND FOLLOWED. MEDICATIONS GIVEN, SEE EMAR FOR DETAILS. CARDIOLOGY CONSULTED PER DR. LOMBARDI'S ORDERS FOR SUSTAINED ELEVATED HEART RATE. DR. CHÁVEZ NOTIFIED OF INCREASED HR AND PATIENT OXYGENAITON STATUS. NEW ORDERS RECEIVED AND FOLLOWED. MEDICATIONS GIVEN, SEE EMAR FOR DETAILS. HOURLY ROUNDING IN PLACE FOR PATIENT SAFETY. FALL PRECAUTIONS IN PLACE FOR PATIENT SAFETY. BED LOCKED AND IN LOWEST POSITION.
--- NOTE | 2021-02-09 11:07 | EKG ---
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1980 Requested By: Gardenia Calderon Order Number: [id number] Raciel MD: Marlo Steiner Measurements Intervals [place] Rate: 119 P: 20 VA: 155 QRS: -20 QRSD: 110 T: 5 QT: 311 QTc: 438 Interpretive Statements Sinus tachycardia Possible inferior infarct, old Borderline ST elevation, anterolateral leads Baseline wander in lead(s) V2 Compared to ECG 02/08/2021 03:03:24 Myocardial infarct finding now present Atrial fibrillation no longer present ST (T wave) deviation still present Electronically Signed On 02-09-2021 11:07:32 CDT by Marlo Steiner [email or web address] <ELECTRONICALLY SIGNED> By: Marlo Steiner MD, [facility] 02/09/21 1107 9 9 Marlo Steiner MD, [facility] /EPI
[2021-02-09 13:39] LABS: ABSOLUTE BASOPHILS 0.1 thou/uL (0.0-0.2); ABSOLUTE LYMPHOCYTES 0.4 thou/uL (0.8-5.3); ABSOLUTE MONOCYTES 1.3 thou/uL (0.0-1.2); ABSOLUTE NEUTROPHILS 17.7 thou/uL (1.6-8.1); BASOPHILS 0.3 %; EOSINOPHILS 0.1 %; HEMATOCRIT 35.4 % (42.0-52.0); HEMOGLOBIN 12.2 gm/dL (14.0-18.0); LYMPHOCYTES 1.9 %; MCH 30.3 pg (26.0-34.0); MCHC 34.6 g/dL (28.0-37.0); MCV 87.5 fL (80.0-100.0); MONOCYTES 6.9 %; MPV 6.9 fl. (7.2-11.1); NUCLEATED RBCS 0 /100WBC; PLATELET COUNT* 130 thou/uL (150-400); POLYS 90.8 %; RBC 4.05 mil/uL (4.50-6.00); RDW-CV 13.5 % (10.5-14.5); WBC 19.5 thou/uL (4.0-11.0)
[2021-02-09 13:51] LABS: CALCIUM 7.2 mg/dL (8.5-10.1); CREATININE 1.2 mg/dL (0.6-1.3)
[2021-02-09 13:56] LABS: POTASSIUM 6.7 mmol/L (3.5-5.1)
[2021-02-09 14:47] LABS: BE -3.8 mmol/L (-2 to +3); PCO2 43.2 mmHg (35.0-45.0); PO2 60.6 mmHg (75.0-100.0); pH 7.327 (7.340-7.450)
[2021-02-09 14:48] LABS: HEMATOCRIT 34.4 % (42.0-52.0); MCH 30.6 pg (26.0-34.0); MCHC 34.9 g/dL (28.0-37.0); MCV 87.8 fL (80.0-100.0); MPV 7.2 fl. (7.2-11.1); RBC 3.92 mil/uL (4.50-6.00); RDW-CV 13.5 % (10.5-14.5); WBC 19.4 thou/uL (4.0-11.0)
[2021-02-09 15:07] LABS: ANION GAP 7 mmol/L (7-16); BUN 52 mg/dL (7-18); CALCIUM 7.1 mg/dL (8.5-10.1); CHLORIDE 104 mmol/L (98-107); CO2 26 mmol/L (21-32); CREATININE 1.4 mg/dL (0.6-1.3); GLUCOSE 136 mg/dL (70-99); SODIUM 137 mmol/L (136-145)
[2021-02-09 15:08] LABS: POTASSIUM 6.7 mmol/L (3.5-5.1)
[2021-02-09 15:13] LABS: ALBUMIN 3.1 g/dL (3.4-5.0); ALKALINE PHOSPHATASE 61 U/L (46-116); MAGNESIUM 2.7 mg/dL (1.8-2.4); SGOT < 5 U/L (15-37); TOTAL PROTEIN 5.9 g/dL (6.4-8.2)
[2021-02-09 15:17] LABS: APTT 28.5 Seconds (25.0-31.3); INR 1.9; PROTIME 19.1 Seconds (9.20-11.50)
[2021-02-09 15:39] LABS: SGPT 12624 U/L (30-65)
[2021-02-09 18:17] LABS: BE -3.5 mmol/L (-2 to +3); PO2 63.9 mmHg (75.0-100.0)
[2021-02-09 18:29] LABS: CALCIUM 7.8 mg/dL (8.5-10.1); CREATININE 1.6 mg/dL (0.6-1.3)
[2021-02-09 21:38] LABS: BE -0.9 mmol/L (-2 to +3); PO2 81.9 mmHg (75.0-100.0); pH 7.311 (7.340-7.450)
[2021-02-09 21:40] LABS: PCO2 52.7 mmHg (35.0-45.0)
[2021-02-09 22:19] LABS: CALCIUM 7.4 mg/dL (8.5-10.1); CREATININE 1.8 mg/dL (0.6-1.3); POTASSIUM 5.3 mmol/L (3.5-5.1)
[2021-02-09 22:36] LABS: ALBUMIN 2.7 g/dL (3.4-5.0); TOTAL BILIRUBIN 1.5 mg/dL (<0.1-1.0); TOTAL PROTEIN 5.3 g/dL (6.4-8.2)
[2021-02-10] VITALS (68 sets, daily range): BP systolic 96–148; BP diastolic 46–84
[2021-02-10 06:38] LABS: HEMATOCRIT 31.3 % (42.0-52.0); HEMOGLOBIN 11.1 gm/dL (14.0-18.0); MCH 31.1 pg (26.0-34.0); MCHC 35.5 g/dL (28.0-37.0); MCV 87.7 fL (80.0-100.0); MPV 7.6 fl. (7.2-11.1); RBC 3.56 mil/uL (4.50-6.00); WBC 10.9 thou/uL (4.0-11.0)
--- NOTE | 2021-02-10 06:44 | NUR ---
ASSUMED PATIENT CARE AT 1900. ASSESSMENTS COMPLETED CHARTED. CARDIAC MONITORING IN PLACE. PATIENT TROPONIN LAB RESULTS ELEVATED. EKG OBTAINED. CARDIOLOGY NOTIFIED. REPEAT TROPONIN AND ADDITIONAL EKG IN THE MORNING PER ADALBERTO NJ'S ORDERS. NO ADDITIONAL ORDERS RECEIVED. PATIENT TEMPERATURE ELEVATED DURING SHIFT. PATIENT LIVER ENZYMES ELEVATED. TYLENOL HELD AND DR. UMANA NOTIFIED, TYLENOL DISCONTINUED. ICE PACKS IN AXILLAE AND GROIN. CLOSELY FOLLOWED TEMPERATURE. TEMPERATURE TRENDING DOWN. HOURLY ROUNDING IN PLACE FOR PATIENT SAFETY. FALL PRECAUTIONS IN PLACE FOR PATIENT SAFETY. BED LOCKED AND IN LOWEST POSITION.
[2021-02-10 07:44] LABS: ALBUMIN 2.9 g/dL (3.4-5.0); CALCIUM 7.3 mg/dL (8.5-10.1); CREATININE 1.9 mg/dL (0.6-1.3); MAGNESIUM 2.5 mg/dL (1.8-2.4); POTASSIUM 4.7 mmol/L (3.5-5.1); TOTAL BILIRUBIN 2.3 mg/dL (<0.1-1.0)
[2021-02-10 07:59] LABS: PO2 76.5 mmHg (75.0-100.0); pH 7.378 (7.340-7.450)
[2021-02-10 10:48] LABS: APTT 33.2 Seconds (25.0-31.3); INR 1.9; PROTIME 19.3 Seconds (9.20-11.50)
[2021-02-10 13:57] LABS: ABSOLUTE LYMPHOCYTES 0.5 thou/uL (0.8-5.3); ABSOLUTE MONOCYTES 0.3 thou/uL (0.0-1.2); ABSOLUTE NEUTROPHILS 6.5 thou/uL (1.6-8.1); BASOPHILS 0.3 %; EOSINOPHILS 0.4 %; HEMATOCRIT 27.3 % (42.0-52.0); HEMOGLOBIN 9.5 gm/dL (14.0-18.0); LYMPHOCYTES 6.4 %; MCH 30.7 pg (26.0-34.0); MCHC 34.9 g/dL (28.0-37.0); MONOCYTES 3.5 %; MPV 7.4 fl. (7.2-11.1); NUCLEATED RBCS 1 /100WBC; PLATELET COUNT* 58 thou/uL (150-400); POLYS 89.4 %; WBC 7.2 thou/uL (4.0-11.0)
[2021-02-10 14:20] LABS: ALBUMIN 2.7 g/dL (3.4-5.0); CALCIUM 7.1 mg/dL (8.5-10.1); CREATININE 1.8 mg/dL (0.6-1.3); POTASSIUM 4.5 mmol/L (3.5-5.1); TOTAL BILIRUBIN 2.2 mg/dL (<0.1-1.0); TOTAL PROTEIN 5.2 g/dL (6.4-8.2)
[2021-02-11] VITALS (62 sets, daily range): BP systolic 89–157; BP diastolic 45–84
[2021-02-11 06:20] LABS: HEMATOCRIT 25.6 % (42.0-52.0); MCH 30.7 pg (26.0-34.0); MCHC 35.2 g/dL (28.0-37.0); MCV 87.2 fL (80.0-100.0); MPV 7.8 fl. (7.2-11.1); RBC 2.93 mil/uL (4.50-6.00); RDW-CV 13.9 % (10.5-14.5); WBC 9.1 thou/uL (4.0-11.0)
[2021-02-11 06:33] LABS: CALCIUM 7.8 mg/dL (8.5-10.1); CREATININE 1.6 mg/dL (0.6-1.3); MAGNESIUM 2.6 mg/dL (1.8-2.4); POTASSIUM 4.6 mmol/L (3.5-5.1); TOTAL BILIRUBIN 2.3 mg/dL (<0.1-1.0); TOTAL PROTEIN 5.3 g/dL (6.4-8.2)
--- NOTE | 2021-02-11 10:03 | EKG ---
[place] [address] ELECTROCARDIOGRAM REPORT Name: CARLA GRIGGS Room: [address] ADM IN ..#: [id number] Admission: 01/21/21 Attend Phys: Bill Hedrick Discharge: Date of : 78 Date of Service: 02/09/21 2243 Report #: [id number] THIS REPORT FOR: //name// 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
--- NOTE | 2021-02-11 10:17 | NUR ---
ICU Rounds: Patient remains intubated (Vent FiO2 78% and Peep O). R chest tube to suction in place.
--- NOTE | 2021-02-11 12:51 | 2DMMODE ---
[place] [address] 2 D/M-MODE ECHOCARDIOGRAM Name: INDUCARLA A Room: [address] IN [facility]#: [id number] Admission: 01/21/21 Attend Phys: Bill Hedrick Discharge: Date of : 78 Date of Service: 02/11/21 1251 Report #: [id number] THIS REPORT FOR: cc: Lita Shi Maggie M. DO Blick, David R. MD [facility] ~ APPROVED REPORT Study performed: 02/11/2021 09:40:33 EXAM: Limited 2D, Doppler, and color-flow Echocardiogram Patient Location: In-Patient Room #: 008 Status: routine BSA: 2.19 HR: 75 bpm BP: 135/76 mmHg Rhythm: NSR Other Information Study Quality: Good Indications Elevated Troponin 2D Dimensions IVSd: 11.71 (7-11mm) LVDd: 46.88 mm PWd: 11.33 (7-11mm) LVDs: 32.53 (25-40mm) Tricuspid Valve RAP Estimate: 10.00 mmHg TR Peak Gr.: 56.32 mmHg RVSP: 66.00 mmHg PA Pressure: 66.00 mmHg Left Ventricle The left ventricle is normal size. There is normal LV segmental wall motion. There is normal left ventricular wall thickness. The left ventricular systolic function is normal. The left ventricular ejection fraction is within the normal range. LVEF is 50-55%. Right Ventricle Right ventricle is dilated. Right ventricle is mildly hypokinetic. [address] [address] 2 D/M-MODE ECHOCARDIOGRAM Name: CARLA GRIGGS Shwetha Room: [address] IN [facility]#: [id number] Admission: 01/21/21 Attend Phys: Bill Hedrick Discharge: Date of : 78 Date of Service: 02/11/21 1251 Report #: [id number] Atria The left atrium size is normal. Right atrium is dilated. Aortic Valve The aortic valve is normal in structure. Mitral Valve The mitral valve is normal in structure. Tricuspid Valve Moderate tricuspid regurgitation. estimated pa pressure 60 mm Hg Pulmonic Valve The pulmonary valve is normal in structure. Great Vessels The aortic root is normal in size. The IVC is dilated. Patient on ventilator, could not assess for IVC collapse Pericardium There is no pericardial effusion. <Conclusion> LVEF is 50-55%. Right ventricle is dilated. Moderate tricuspid regurgitation. estimated pa pressure 60 mm Hg <ELECTRONICALLY SIGNED> By: Tio Baird MD, [facility] 02/11/21 1251 1251 1251 Tio Baird MD, FACC /INF
--- NOTE | 2021-02-11 12:59 | CON ---
[address] [address] CONSULTATION Name: CARLA GRIGGS Shwetha Room: [address] IN M.R.#: [id number] Admission: 01/21/21 Attend Phys: Yani Campos Discharge: Date of : 78 Report #: [id number] THIS REPORT FOR: cc: Lita Shi Maggie M. DO Khan, Abid R. MD ~ DATE OF CONSULTATION: 02/10/2021 NEPHROLOGY CONSULTATION REQUESTING PHYSICIAN: Bill Hedrick DO REASON FOR CONSULTATION: Acute kidney injury. HISTORY OF PRESENT ILLNESS: A 40-year-old gentleman whom I am asked to see for acute kidney injury as creatinine had risen to 1.9, it was 0.5 on 02/08. He currently is intubated and has ARDS related to COVID-19 infection as well as barotrauma and septic shock as well as non-ST elevation GA. He is on multiple antibiotics. Has elevated liver functions, for which GI has been consulted, but this is likely related to hypoperfusion. He has a chest tube in place, for which Surgery is seeing him and is on empiric steroids. He did receive remdesivir and convalescent plasma. His family is present at the bedside and case was reviewed as well. His potassium did temporarily increase and is now improved. REVIEW OF SYSTEMS: Constitutional, psych, heme, eyes, ENT, respiratory, cardiac, GI, , endocrine, all negative except as documented above and as best as can be ascertained. PAST MEDICAL HISTORY: None. FAMILY HISTORY: Noncontributory to current case. SOCIAL HISTORY: No tobacco. CURRENT MEDICATIONS: Reviewed. PHYSICAL EXAMINATION: VITAL SIGNS: Blood pressure is 126/71, pulse 96, respirations 22, temperature 37.4. GENERAL: No distress. HEENT: ENT, ET tube in place. Eyes closed. Ears externally normal. CARDIOVASCULAR: Regular rate. LUNGS: [place] [address] CONSULTATION Name: CARLA GRIGGS Room: [address] IN [facility].#: [id number] Admission: 01/21/21 Attend Phys: Yani Campos Discharge: Date of : 78 Report #: [id number] ABDOMEN: Soft. MUSCULOSKELETAL: No pitting edema. GENITOURINARY: Farias catheter in place. NEUROLOGIC: Intubated and sedated. LABORATORY DATA: White cell count 7.2, hemoglobin 9.5, platelets 58. Sodium 143, potassium 4.7, chloride 106, bicarbonate 28, BUN 51, creatinine 1.9, glucose 174, calcium 7.3, magnesium 2.5. AST is over 6000 and ALT is over 10,000, albumin is 2.9. ASSESSMENT AND PLAN: 1. Acute kidney injury in the setting of shock, non-ST elevation myocardial infarction and COVID-19 infection. Creatinine was 0.5 on 02/08 up to 1.9 on 02/10. UA showed 3+ blood, but was otherwise unrevealing and 10 days prior there was no blood. This is likely related to Farias trauma. Abdominal ultrasound on 02/09 showed normal kidneys. 2. Hepatic steatosis noted on abdominal ultrasound. 3. COVID-19 infection, treated with remdesivir, convalescent plasma and Actemra. 4. Non-ST elevation myocardial infarction. 5. Septic shock. PLAN: Currently on antibiotics as well as IV fluids. He has had high input, but fluids have been cut back. He has excellent urine output. Agree with present management. TPN has been ordered. Once this is initiated, okay with me to discontinue IV fluids. We will check lab in a.m. and follow along with you. Thank you for requesting my opinion in the care and management of this patient. <ELECTRONICALLY SIGNED> By: Conner Butcher MD 02/11/21 1259 1306 2041Amina Butcher MD /nt
[2021-02-11 13:33] LABS: APTT 25.3 Seconds (25.0-31.3); INR 1.7; PROTIME 17.4 Seconds (9.20-11.50)
--- NOTE | 2021-02-11 14:58 | EKG ---
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 : 1980 Requested By: Gardenia Calderon Order Number: [id number] Reading MD: Tio Baird Measurements Intervals [place] Rate: 76 P: 24 ND: 165 QRS: -10 QRSD: 113 T: -24 QT: 460 QTc: 518 Interpretive Statements Sinus rhythm Borderline intraventricular conduction delay Abnormal T, probable ischemia, widespread Prolonged QT interval Compared to ECG 02/09/2021 22:43:42 T-wave abnormality now present Possible ischemia now present ST (T wave) deviation now present Prolonged QT interval now present Sinus tachycardia no longer present Electronically Signed On 02-11-2021 14:58:33 CDT by Tio Baird [email or web address] <ELECTRONICALLY SIGNED> By: Tio Baird MD, [facility] 02/11/21 1458 1020 1020 Tio Baird MD, [facility] /EPI
[2021-02-12] VITALS (49 sets, daily range): BP systolic 113–181; BP diastolic 46–87
[2021-02-12 06:07] LABS: HEMATOCRIT 25.3 % (42.0-52.0); HEMOGLOBIN 8.7 gm/dL (14.0-18.0); MCH 30.8 pg (26.0-34.0); MCHC 34.5 g/dL (28.0-37.0); MCV 89.3 fL (80.0-100.0); MPV 8.8 fl. (7.2-11.1); NUCLEATED RBCS 0 /100WBC; PLATELET COUNT* 53 thou/uL (150-400); RBC 2.84 mil/uL (4.50-6.00); WBC 11.2 thou/uL (4.0-11.0)
[2021-02-12 06:19] LABS: PHOSPHORUS* 3.7 mg/dL (2.5-4.9)
[2021-02-12 06:26] LABS: ALBUMIN 2.9 g/dL (3.4-5.0); BUN 61 mg/dL (7-18); CHLORIDE 109 mmol/L (98-107); HDL CHOLESTEROL 12 mg/dL (>40); MAGNESIUM 2.6 mg/dL (1.8-2.4); SODIUM 143 mmol/L (136-145); TOTAL BILIRUBIN 1.2 mg/dL (<0.1-1.0); TOTAL PROTEIN 5.3 g/dL (6.4-8.2)
[2021-02-12 06:30] LABS: ALKALINE PHOSPHATASE 65 U/L (46-116); ANION GAP 6 mmol/L (7-16); CALCIUM 7.8 mg/dL (8.5-10.1); CHOLESTEROL 84 mg/dL (<200); CO2 28 mmol/L (21-32); CREATININE 1.8 mg/dL (0.6-1.3); GLUCOSE 339 mg/dL (70-99); LDL CHOLESTEROL 38 mg/dL (<100); POTASSIUM 5.8 mmol/L (3.5-5.1); SGOT 1476 U/L (15-37); TRIGLYCERIDE 174 mg/dL (<150); VLDL 35 mg/dL (<40)
--- NOTE | 2021-02-12 06:38 | NUR ---
ASSUMED CARE AT 1910H, ON VENT AT 75% AND TOLERATED. ON MAX SEDATION OF VERSED, PRECEDEX AND FENTANYL. MATTHEW DRIP OFF ARROUND 2100H. PT WAS WELL SEDATED BUT STILL WITH DYSYNCHRONIZED BREATHING. NO FEVER AND DISTRESS NOTED. CONTINUE MONITORING AND TOWARDS GOALS.
[2021-02-12 07:20] LABS: SERUM ASSESSMENT Clear; SGPT 8101 U/L (30-65)
[2021-02-12 08:02] LABS: BE 1.2 mmol/L (-2 to +3); PO2 73.9 mmHg (75.0-100.0); pH 7.319 (7.340-7.450)
[2021-02-12 08:03] LABS: PCO2 55.6 mmHg (35.0-45.0)
[2021-02-12 09:32] LABS: ABSOLUTE LYMPHOCYTES 0.1 thou/uL (0.8-5.3); ABSOLUTE MONOCYTES 0.2 thou/uL (0.0-1.2); ABSOLUTE NEUTROPHILS 10.9 thou/uL (1.6-8.1); PLATELET ESTIMATE ADEQUATE
--- NOTE | 2021-02-12 10:36 | NUR ---
ICU Rounds: Patient remains ventilated. FiO2 85% and peep0. Patient on max sedation on versed. Currently on precedex and fent gtt. CM to reach out to family to update on plan of care. CM to continue to follow
[2021-02-12 11:56] LABS: BE -0.1 mmol/L (-2 to +3); PO2 117.4 mmHg (75.0-100.0)
[2021-02-12 12:08] LABS: PCO2 70.3 mmHg (35.0-45.0); pH 7.232 (7.340-7.450)
[2021-02-12 16:01] LABS: CALCIUM 7.2 mg/dL (8.5-10.1); CREATININE 1.5 mg/dL (0.6-1.3)
[2021-02-12 16:18] LABS: POTASSIUM 6.9 mmol/L (3.5-5.1)
[2021-02-12 16:44] LABS: CALCIUM 8.2 mg/dL (8.5-10.1); CREATININE 1.5 mg/dL (0.6-1.3)
[2021-02-12 16:45] LABS: POTASSIUM 5.4 mmol/L (3.5-5.1)
[2021-02-12 16:59] LABS: BE 1.1 mmol/L (-2 to +3); pH 7.301 (7.340-7.450)
[2021-02-12 17:00] LABS: PCO2 59.4 mmHg (35.0-45.0)
[2021-02-12 17:01] LABS: PO2 147.9 mmHg (75.0-100.0)
--- NOTE | 2021-02-12 20:53 | NUR ---
EARLY IN THE SHIFT PT DESAT TO HIGH 80'S, NO APPARENT CAUSE. PT NOTED TO HAVE ABD BREATHING DYSYNCHRONOUS WITH VENT. PER DR CHÁVEZ NIMBEX GTT INITIATED; FOLLOW UP ABG'S SHOWED IMPROVEMENT.
[2021-02-12 21:05] LABS: BE -1.3 mmol/L (-2 to +3); PO2 81.9 mmHg (75.0-100.0); pH 7.308 (7.340-7.450)
[2021-02-12 21:09] LABS: PCO2 51.8 mmHg (35.0-45.0)
[2021-02-13] VITALS (23 sets, daily range): BP systolic 131–169; BP diastolic 75–95
--- NOTE | 2021-02-13 04:03 | NUR ---
ASSUMED CARE AT 1900H, 0N VENT AT 75% AND TOLERATED. STILL ON MAX DOSE OF FENTANYL, VERSED AND PRECEDEX. ALSO ON NIMBEX DRIP. NO FEVR AND NO DISTRESS NOTED. WITH SLIGHT BLEEDING FROM THE ART LINE SITE. PULMO WAS AWARE PT'S ABG. ASKING FOR THE ECHO RESULT OF HER THAT WAS DONE 2-3 DAYS AGO. CONTINUE MONITORING AND TOWARDS GOALS.
[2021-02-13 06:33] LABS: ABSOLUTE LYMPHOCYTES 0.2 thou/uL (0.8-5.3); ABSOLUTE MONOCYTES 0.3 thou/uL (0.0-1.2); BASOPHILS 0.2 %; EOSINOPHILS 0.2 %; HEMOGLOBIN 9.1 gm/dL (14.0-18.0); LYMPHOCYTES 2.6 %; MCH 30.6 pg (26.0-34.0); MCHC 34.8 g/dL (28.0-37.0); MCV 87.9 fL (80.0-100.0); MONOCYTES 2.8 %; MPV 8.9 fl. (7.2-11.1); NUCLEATED RBCS 0 /100WBC; PLATELET COUNT* 59 thou/uL (150-400); POLYS 94.2 %; RBC 2.96 mil/uL (4.50-6.00); RDW-CV 14.1 % (10.5-14.5); WBC 9.5 thou/uL (4.0-11.0)
--- NOTE | 2021-02-13 06:41 | NUR ---
ART LINE ACCIDENTALLY REMOVED. HARD TO STOP BLEEDING FROM THE ART LINE SITE. PRESSURE DRESSING APPLIED.
[2021-02-13 07:01] LABS: ALBUMIN 2.7 g/dL (3.4-5.0); CALCIUM 8.3 mg/dL (8.5-10.1); CREATININE 1.3 mg/dL (0.6-1.3); MAGNESIUM 2.4 mg/dL (1.8-2.4); TOTAL BILIRUBIN 1.1 mg/dL (<0.1-1.0)
[2021-02-13 07:02] LABS: POTASSIUM 4.4 mmol/L (3.5-5.1)
[2021-02-13 07:44] LABS: BE 0 mmol/L (-2 to +3); PCO2 48.6 mmHg (35.0-45.0); pH 7.347 (7.340-7.450)
[2021-02-13 07:46] LABS: PO2 59.3 mmHg (75.0-100.0)
--- NOTE | 2021-02-13 10:00 | NUR ---
TPN RATE DECREASED TO 40 MLS/HR PER DR CHÁVEZ.
--- NOTE | 2021-02-13 15:13 | NUR ---
ICU Rounds: Patient remains on vent and sedated (FiO2 65% and peep 0). KUB ordered for abd mass felt. TPN in place. Weaned off pressors. Continue IV abx, steroids and chest tube remains in place. Remdesevir course completed. Patient out of isolation. CM to continue to follow
--- NOTE | 2021-02-13 20:10 | NUR ---
TUBE FEEDING RESTARTED AT 1600, NEPPRO GOAL OF 50 MLS/HR PER DR CHÁVEZ. NO ACUTE EVENTS THROUGHOUT THE SHIFT.
[2021-02-14] VITALS (59 sets, daily range): BP systolic 74–143; BP diastolic 41–93
[2021-02-14 05:33] LABS: ABSOLUTE LYMPHOCYTES 0.2 thou/uL (0.8-5.3); ABSOLUTE MONOCYTES 0.4 thou/uL (0.0-1.2); ABSOLUTE NEUTROPHILS 9.9 thou/uL (1.6-8.1); BASOPHILS 0.4 %; HEMATOCRIT 27.9 % (42.0-52.0); HEMOGLOBIN 9.6 gm/dL (14.0-18.0); LYMPHOCYTES 1.9 %; MCH 30.5 pg (26.0-34.0); MCHC 34.4 g/dL (28.0-37.0); MCV 88.6 fL (80.0-100.0); MONOCYTES 3.9 %; MPV 8.3 fl. (7.2-11.1); NUCLEATED RBCS 0 /100WBC; PLATELET COUNT* 69 thou/uL (150-400); POLYS 93.8 %; RBC 3.15 mil/uL (4.50-6.00); RDW-CV 14.3 % (10.5-14.5); WBC 10.6 thou/uL (4.0-11.0)
[2021-02-14 05:57] LABS: ALBUMIN 2.6 g/dL (3.4-5.0); CALCIUM 8.1 mg/dL (8.5-10.1); CREATININE 1.1 mg/dL (0.6-1.3); MAGNESIUM 2.2 mg/dL (1.8-2.4); POTASSIUM 5.5 mmol/L (3.5-5.1); TOTAL BILIRUBIN 1.4 mg/dL (<0.1-1.0)
--- NOTE | 2021-02-14 07:03 | NUR ---
ASSUMED PATIENT CARE AT 1900. ASSESSMENTS COMPLETED CHARTED. CARDIAC MONITORING IN PLACE. HOURLY ROUNDING IN PLACE FOR PATIENT SAFETY. FALL PRECAUTIONS IN PLACE FOR PATIENT SAFETY. BED LOCKED AND IN LOWEST POSITION. PATIENT BP LOW AT END OF SHIFT. 500ML NS BOLUS ADMINISTERED PER ICU STANDING PROTOCOL. WILL CONTINUE TO MONITOR CLOSELY.
[2021-02-14 07:50] LABS: BE 2.5 mmol/L (-2 to +3); pH 7.346 (7.340-7.450)
[2021-02-14 08:09] LABS: PCO2 54.8 mmHg (35.0-45.0); PO2 57.1 mmHg (75.0-100.0)
--- NOTE | 2021-02-14 10:09 | NUR ---
ICU Rounds: Patient remains on vent (FiO2 90% and Peep 0). Nephro following. Surg following to assist with trach when stable. ID follow for continued abx. Cards following. Pulm following for continued steroids and nimbex. Patient is maxed out on fentanyl, versed and precedex. CM to reach out to family to discuss plan of care and address any CM needs.
[2021-02-14 17:11] LABS: BE 1.9 mmol/L (-2 to +3); PO2 77.3 mmHg (75.0-100.0)
[2021-02-14 18:28] LABS: ANION GAP < 0 mmol/L (7-16); BUN 52 mg/dL (7-18); CALCIUM 8.1 mg/dL (8.5-10.1); CHLORIDE 110 mmol/L (98-107); CO2 34 mmol/L (21-32); CREATININE 1.2 mg/dL (0.6-1.3); GLUCOSE 147 mg/dL (70-99); MAGNESIUM 2.3 mg/dL (1.8-2.4); POTASSIUM 5.8 mmol/L (3.5-5.1); SODIUM 142 mmol/L (136-145)
[2021-02-14 20:44] LABS: BE 0.9 mmol/L (-2 to +3); PO2 92.1 mmHg (75.0-100.0)
[2021-02-14 20:47] LABS: PCO2 67.3 mmHg (35.0-45.0); pH 7.256 (7.340-7.450)
[2021-02-15] VITALS (36 sets, daily range): BP systolic 105–152; BP diastolic 59–94
[2021-02-15 05:11] LABS: ABSOLUTE LYMPHOCYTES 0.3 thou/uL (0.8-5.3); ABSOLUTE MONOCYTES 0.1 thou/uL (0.0-1.2); ABSOLUTE NEUTROPHILS 16.5 thou/uL (1.6-8.1); BASOPHILS 0.2 %; EOSINOPHILS 0.1 %; HEMATOCRIT 33.2 % (42.0-52.0); HEMOGLOBIN 11.3 gm/dL (14.0-18.0); LYMPHOCYTES 1.7 %; MCH 30.4 pg (26.0-34.0); MCHC 34.2 g/dL (28.0-37.0); MONOCYTES 0.7 %; MPV 8.4 fl. (7.2-11.1); NUCLEATED RBCS 0 /100WBC; PLATELET COUNT* 129 thou/uL (150-400); POLYS 97.3 %; RBC 3.72 mil/uL (4.50-6.00); RDW-CV 14.4 % (10.5-14.5); WBC 16.9 thou/uL (4.0-11.0)
[2021-02-15 05:31] LABS: CALCIUM 8.2 mg/dL (8.5-10.1); CREATININE 1.4 mg/dL (0.6-1.3); MAGNESIUM 2.2 mg/dL (1.8-2.4); TOTAL BILIRUBIN 1.2 mg/dL (<0.1-1.0); TOTAL PROTEIN 5.9 g/dL (6.4-8.2)
[2021-02-15 05:33] LABS: POTASSIUM 4.7 mmol/L (3.5-5.1)
[2021-02-15 07:53] LABS: BE 0.8 mmol/L (-2 to +3); PO2 66.2 mmHg (75.0-100.0); pH 7.469 (7.340-7.450)
--- NOTE | 2021-02-15 12:53 | NUR ---
ICU Rounds: Patient remains on vent (FiO2 90% and peep 5). Continued fentanyl, versed, precedex, nimbex and abx. R chest tube in place. Patient to remain in ICU through the weekend.
[2021-02-15 14:21] LABS: BE 3.7 mmol/L (-2 to +3); PO2 77.1 mmHg (75.0-100.0); pH 7.329 (7.340-7.450)
[2021-02-15 14:25] LABS: PCO2 60.1 mmHg (35.0-45.0)
[2021-02-15 15:40] LABS: CALCIUM 7.9 mg/dL (8.5-10.1); CREATININE 1.3 mg/dL (0.6-1.3); MAGNESIUM 2.2 mg/dL (1.8-2.4); POTASSIUM 4.3 mmol/L (3.5-5.1)
[2021-02-15 17:01] LABS: BE 5.1 mmol/L (-2 to +3); PCO2 46.5 mmHg (35.0-45.0)
[2021-02-16] VITALS (20 sets, daily range): BP systolic 113–165; BP diastolic 52–90
--- NOTE | 2021-02-16 04:29 | NUR ---
ASSUMED CARE AT 1900H, ON VENT AT 85% AND TOLERATED. ON VERSED,PRECEDEX AND NIMBEX AT MAX DOSE. DILAUDED AT 2MG/HR. NO FEVER AND NO DISTRESS. UPDATE GIVEN TO . SCANTY SERROUS OUT FROM CHEST TUBE. CONTINUE MONITORING AND TOWARDS GOALS.
[2021-02-16 05:33] LABS: ABSOLUTE LYMPHOCYTES 0.2 thou/uL (0.8-5.3); ABSOLUTE MONOCYTES 0.7 thou/uL (0.0-1.2); ABSOLUTE NEUTROPHILS 11.1 thou/uL (1.6-8.1); BASOPHILS 0.2 %; HEMATOCRIT 29.7 % (42.0-52.0); HEMOGLOBIN 10.3 gm/dL (14.0-18.0); MCH 30.8 pg (26.0-34.0); MCHC 34.9 g/dL (28.0-37.0); MCV 88.2 fL (80.0-100.0); MONOCYTES 5.7 %; NUCLEATED RBCS 0 /100WBC; PLATELET COUNT* 130 thou/uL (150-400); POLYS 92.1 %; RBC 3.36 mil/uL (4.50-6.00); RDW-CV 14.2 % (10.5-14.5); WBC 12.1 thou/uL (4.0-11.0)
[2021-02-16 06:08] LABS: ALBUMIN 2.5 g/dL (3.4-5.0); CREATININE 1.2 mg/dL (0.6-1.3); MAGNESIUM 2.2 mg/dL (1.8-2.4); POTASSIUM 4.6 mmol/L (3.5-5.1); TOTAL BILIRUBIN 0.8 mg/dL (<0.1-1.0); TOTAL PROTEIN 5.1 g/dL (6.4-8.2)
[2021-02-16 08:32] LABS: BE 3.8 mmol/L (-2 to +3); pH 7.386 (7.340-7.450)
[2021-02-16 08:34] LABS: PCO2 50.6 mmHg (35.0-45.0)
[2021-02-17] VITALS (24 sets, daily range): BP systolic 125–172; BP diastolic 56–85
--- NOTE | 2021-02-17 04:31 | NUR ---
ASSUMED CARE AT 1900H, ON VENT AT 75% AND TOLERATED. STILL SEDATED AND PARALYZED. NO FEVER AND NO BLEEDING NOTED. CHEST TUBE NO OUTPUT. CONTINUE MONITORING AND TOWARDS GOALS.
[2021-02-17 10:21] LABS: BE 1.9 mmol/L (-2 to +3); PCO2 48.5 mmHg (35.0-45.0); PO2 67.7 mmHg (75.0-100.0); pH 7.375 (7.340-7.450)
[2021-02-17 10:39] LABS: HEMATOCRIT 32.6 % (42.0-52.0); MCH 30.7 pg (26.0-34.0); MCHC 33.8 g/dL (28.0-37.0); MCV 90.8 fL (80.0-100.0); MPV 8.8 fl. (7.2-11.1); NUCLEATED RBCS 0 /100WBC; PLATELET COUNT* 154 thou/uL (150-400); RBC 3.59 mil/uL (4.50-6.00); RDW-CV 14.3 % (10.5-14.5); WBC 11.5 thou/uL (4.0-11.0)
[2021-02-17 11:25] LABS: ABSOLUTE LYMPHOCYTES 0.3 thou/uL (0.8-5.3); ABSOLUTE MONOCYTES 0.3 thou/uL (0.0-1.2); ABSOLUTE NEUTROPHILS 10.8 thou/uL (1.6-8.1); PLATELET ESTIMATE ADEQUATE
[2021-02-17 11:26] LABS: HYPOCHROMASIA 2+; MACROCYTES Occasional
[2021-02-17 11:33] LABS: ALBUMIN 2.5 g/dL (3.4-5.0); CALCIUM 8.5 mg/dL (8.5-10.1); CREATININE 0.9 mg/dL (0.6-1.3); MAGNESIUM 2.3 mg/dL (1.8-2.4); POTASSIUM 4.8 mmol/L (3.5-5.1); TOTAL BILIRUBIN 0.6 mg/dL (<0.1-1.0); TOTAL PROTEIN 4.9 g/dL (6.4-8.2)
[2021-02-18] VITALS (42 sets, daily range): BP systolic 97–195; BP diastolic 59–89
[2021-02-18 04:27] LABS: HEMOGLOBIN 11.3 gm/dL (14.0-18.0); MCH 30.6 pg (26.0-34.0); MCHC 34.1 g/dL (28.0-37.0); MCV 89.9 fL (80.0-100.0); MPV 8.1 fl. (7.2-11.1); RBC 3.68 mil/uL (4.50-6.00); RDW-CV 14.6 % (10.5-14.5); WBC 13.5 thou/uL (4.0-11.0)
--- NOTE | 2021-02-18 04:36 | NUR ---
ASSUMED CARE AT 1910H, ON VENT AT 75% WITH SAT 0F 92%. STILL ON DILAUDED, VERSED AND PRECEDEX DRIP. PT CANNOT TOLERATE FULL TURN TO SIDE, PRN MEDS GIVEN AND FIO2 INCREASED TO 85%. NO FEVER NOTED. UPDATE GIVEN TO THIS MORNING. CONTINUE MONITORING AND TOWARDS GOALS.
[2021-02-18 04:56] LABS: CALCIUM 8.2 mg/dL (8.5-10.1); CREATININE 0.8 mg/dL (0.6-1.3); POTASSIUM 5.1 mmol/L (3.5-5.1)
[2021-02-18 10:18] LABS: BE 1.7 mmol/L (-2 to +3); PCO2 44.4 mmHg (35.0-45.0); PO2 68.6 mmHg (75.0-100.0)
--- NOTE | 2021-02-18 16:07 | NUR ---
ICU Rounds: Patient remains on vent (FiO2 75% and peep 0). Continued dilaudid, versed, precedex and steroids. Nimbex stopped yesterday. Chest tube to R side in place. Per Dr. Walker, patient may need trach. Potential plans for trach this week if O2 needs stablize. Post trach patient may need LTAC. Barrier to LTAC could be no DPOA.
[2021-02-18 17:41] LABS: BE 4.7 mmol/L (-2 to +3); PCO2 38.4 mmHg (35.0-45.0); PO2 64.7 mmHg (75.0-100.0); pH 7.485 (7.340-7.450)
--- NOTE | 2021-02-18 18:51 | NUR ---
Notified Dr. Jo of critical results from H+H, advised no interventions needed at his time, recheck CBC in AM
[2021-02-19] VITALS (40 sets, daily range): BP systolic 91–292; BP diastolic 47–150
--- NOTE | 2021-02-19 07:12 | NUR ---
ASSUMED PATIENT CARE AT 1900. ASSESSMENTS COMPLETED CHARTED. CARDIAC MONITORING IN PLACE. PATIENT BP, HR, AND O2 SATURATION WERE EXTREMELY SENSITIVE TO MOVEMENT AND REPOSITIONING DURING SHIFT. SMALL TURNS MADE WITH PILLOWS Q2 FOR SKIN INTEGRITY AND COMFORT. HOURLY ROUNDING IN PLACE FOR PATIENT SAFETY. FALL PRECAUTIONS IN PLACE FOR PATIENT SAFETY, BED LOCKED AND IN LOWEST POSITION.
[2021-02-19 11:46] LABS: ABSOLUTE LYMPHOCYTES 0.2 thou/uL (0.8-5.3); ABSOLUTE MONOCYTES 0.5 thou/uL (0.0-1.2); ABSOLUTE NEUTROPHILS 11.3 thou/uL (1.6-8.1); BASOPHILS 0.3 %; HEMATOCRIT 31.5 % (42.0-52.0); HEMOGLOBIN 10.9 gm/dL (14.0-18.0); MCH 30.9 pg (26.0-34.0); MCHC 34.6 g/dL (28.0-37.0); MCV 89.5 fL (80.0-100.0); MONOCYTES 4.1 %; MPV 8.3 fl. (7.2-11.1); NUCLEATED RBCS 1 /100WBC; PLATELET COUNT* 174 thou/uL (150-400); POLYS 93.6 %; RBC 3.52 mil/uL (4.50-6.00); RDW-CV 14.8 % (10.5-14.5); WBC 12.1 thou/uL (4.0-11.0)
[2021-02-19 11:55] LABS: ALBUMIN 2.3 g/dL (3.4-5.0); CALCIUM 8.1 mg/dL (8.5-10.1); CREATININE 0.9 mg/dL (0.6-1.3); MAGNESIUM 2.1 mg/dL (1.8-2.4); POTASSIUM 5.1 mmol/L (3.5-5.1); TOTAL BILIRUBIN 0.8 mg/dL (<0.1-1.0); TOTAL PROTEIN 4.9 g/dL (6.4-8.2)
[2021-02-19 12:23] LABS: PCO2 39.1 mmHg (35.0-45.0); PO2 102.4 mmHg (75.0-100.0); pH 7.464 (7.340-7.450)
[2021-02-19 12:24] LABS: BE 3.5 mmol/L (-2 to +3)
--- NOTE | 2021-02-19 14:36 | NUR ---
ICU Rounds: Patient remains on vent (FiO2 90% and Peep 5). FiO2 needs to be decreased in order to trach per surgery. Continued TF, versed, steroids and dilaudid.
--- NOTE | 2021-02-19 16:46 | NUR ---
LATE ENTRY 01/24/21: 1845: PATIENT GIVEN SPIRONOLACTIONE 100-MG PO X1, FUROSEMIDE 20 MG IV X1, BENZONATATE 100MG PO X1 GIVEN AT THIS TIME. UNABLE TO DOCUMENT IN EMAR.
[2021-02-20] VITALS (40 sets, daily range): BP systolic 95–195; BP diastolic 48–89
--- NOTE | 2021-02-20 01:23 | NUR ---
02/19/21 @ 2039 CHEST X-RAY COMPLETED. RESULTS CALLED TO DR STOKES. NO FURTHER INTERVENTIONS AT THIS TIME.
[2021-02-20 03:25] LABS: HEMATOCRIT 31.4 % (42.0-52.0); HEMOGLOBIN 10.9 gm/dL (14.0-18.0); MCH 31.1 pg (26.0-34.0); MCHC 34.8 g/dL (28.0-37.0); MCV 89.4 fL (80.0-100.0); MPV 8.1 fl. (7.2-11.1); RBC 3.51 mil/uL (4.50-6.00); RDW-CV 14.8 % (10.5-14.5); WBC 12.1 thou/uL (4.0-11.0)
[2021-02-20 03:40] LABS: ALBUMIN 2.3 g/dL (3.4-5.0); CALCIUM 8.2 mg/dL (8.5-10.1); CREATININE 0.9 mg/dL (0.6-1.3); MAGNESIUM 2.1 mg/dL (1.8-2.4); POTASSIUM 5.4 mmol/L (3.5-5.1); TOTAL BILIRUBIN 0.8 mg/dL (<0.1-1.0)
[2021-02-20 05:34] LABS: BE 3.5 mmol/L (-2 to +3); PCO2 48.7 mmHg (35.0-45.0); PO2 76.8 mmHg (75.0-100.0); pH 7.398 (7.340-7.450)
--- NOTE | 2021-02-20 11:39 | NUR ---
ATTEMPTED TO TURN PATIENT TO HIS RIGHT SIDE WITH RT. SHORTLY AFTER, PATIENT'S SPO2 DROPPED TO MID 80'S, HR 130'S, AND SBP PER ART LINE >260. MEDICATIONS GIVEN PER MAR, PATIENT REPOSITIONED TO SUPINE, O2 TITRATED PER RT.
--- NOTE | 2021-02-20 15:07 | NUR ---
ICU Rounds: Patient remains on vent (FiO2 75% and peep 5). Continued TF, dilaudid and versed.
[2021-02-21] VITALS (56 sets, daily range): BP systolic 98–230; BP diastolic 42–94
[2021-02-21 09:17] LABS: ABSOLUTE BASOPHILS 0.1 thou/uL (0.0-0.2); ABSOLUTE LYMPHOCYTES 0.1 thou/uL (0.8-5.3); ABSOLUTE MONOCYTES 0.5 thou/uL (0.0-1.2); BASOPHILS 0.4 %; HEMATOCRIT 31.6 % (42.0-52.0); HEMOGLOBIN 10.7 gm/dL (14.0-18.0); LYMPHOCYTES 0.9 %; MCH 30.6 pg (26.0-34.0); MCV 90.2 fL (80.0-100.0); MONOCYTES 3.4 %; MPV 8.5 fl. (7.2-11.1); NUCLEATED RBCS 0 /100WBC; PLATELET COUNT* 177 thou/uL (150-400); POLYS 95.3 %; RDW-CV 14.8 % (10.5-14.5); WBC 14.7 thou/uL (4.0-11.0)
[2021-02-21 09:21] LABS: BE 6.7 mmol/L (-2 to +3); PO2 75.9 mmHg (75.0-100.0)
[2021-02-21 09:39] LABS: PCO2 52.6 mmHg (35.0-45.0)
[2021-02-21 09:47] LABS: ALBUMIN 2.4 g/dL (3.4-5.0); CALCIUM 8.1 mg/dL (8.5-10.1); CREATININE 0.9 mg/dL (0.6-1.3); POTASSIUM 5.1 mmol/L (3.5-5.1); TOTAL BILIRUBIN 0.8 mg/dL (<0.1-1.0); TOTAL PROTEIN 5.1 g/dL (6.4-8.2)
--- NOTE | 2021-02-21 15:25 | NUR ---
ICU Rounds: Patient remains on vent but doing slightly better. FiO2 down today (FiO2 70% and peep 5). Trach possibly planned depending on progress over the next few days. Continued steroids, dilaudid, versed and precedex. Potential plan for LTAC if trach is able to be placed. DPOA could be barrier. CM to reach out to [facility] and [facility] to discuss insurance and DPOA.
[2021-02-22] VITALS (94 sets, daily range): BP systolic 97–197; BP diastolic 42–81
[2021-02-22 04:44] LABS: HEMATOCRIT 29.8 % (42.0-52.0); HEMOGLOBIN 10.3 gm/dL (14.0-18.0); MCH 30.9 pg (26.0-34.0); MCHC 34.4 g/dL (28.0-37.0); MCV 89.8 fL (80.0-100.0); RBC 3.32 mil/uL (4.50-6.00); RDW-CV 15.2 % (10.5-14.5); WBC 12.3 thou/uL (4.0-11.0)
[2021-02-22 05:44] LABS: ALBUMIN 2.2 g/dL (3.4-5.0); CREATININE 0.8 mg/dL (0.6-1.3); TOTAL BILIRUBIN 0.6 mg/dL (<0.1-1.0); TOTAL PROTEIN 4.8 g/dL (6.4-8.2)
[2021-02-22 05:46] LABS: BE 5.3 mmol/L (-2 to +3); PCO2 48.7 mmHg (35.0-45.0); PO2 82.4 mmHg (75.0-100.0); pH 7.418 (7.340-7.450)
--- NOTE | 2021-02-22 15:26 | NUR ---
the plan of care is to try to wean O2 as able. d/c PT/OT for now. possibly trach and peg this weekend.
--- NOTE | 2021-02-22 18:00 | NUR ---
SEDATION VACATION PROVIDED TODAY, SEDATION DOSAGES DECREASED UNTIL PT AWOKE SPONTANEOUSLY. PT NODDED HIS HEAD WHEN ASKED IF HE COULD HEAR US. PT ASKED IF HE WAS IN PAIN, SHOOK HIS HEAD "NO." PT ASKED TO WIGGLE HIS FINGERS, HE MOVED HIS LEFT FINGERS VERY WEAKLY BUT WITH OBVIOUS INTENT. PT WAS TOLD THAT HIS , PAPITO, HAS BEEN PRESENT AT HIS SIDE ALMOST DAILY. PTS FACIAL EXPRESSION IN RESPONSE TO THIS WAS EMOTIONAL, APPEARED THOUGH HE WAS CRYING. PT WAS TACHYPNEIC WITH STACKING OF BREATHS, TACHYCARDIC (BR 120'S), AND HYPERTENSIVE (SBP 230'S) BY THIS POINT, THUSLY SEDATION DOSAGES WERE RETURNED TO PRE-VACATION RATES.
[2021-02-23] VITALS (100 sets, daily range): BP systolic 94–234; BP diastolic 43–84
[2021-02-23 11:14] LABS: BE 3.9 mmol/L (-2 to +3); PCO2 48.7 mmHg (35.0-45.0)
[2021-02-23 11:22] LABS: PO2 57.9 mmHg (75.0-100.0)
[2021-02-23 13:10] LABS: HEMATOCRIT 30.5 % (42.0-52.0); HEMOGLOBIN 10.4 gm/dL (14.0-18.0); MCH 30.3 pg (26.0-34.0); MCV 89.1 fL (80.0-100.0); MPV 7.8 fl. (7.2-11.1); NUCLEATED RBCS 0 /100WBC; PLATELET COUNT* 171 thou/uL (150-400); RBC 3.42 mil/uL (4.50-6.00); RDW-CV 15.5 % (10.5-14.5); WBC 13.1 thou/uL (4.0-11.0)
[2021-02-23 13:28] LABS: ALBUMIN 2.1 g/dL (3.4-5.0); CALCIUM 7.8 mg/dL (8.5-10.1); CREATININE 0.7 mg/dL (0.6-1.3); POTASSIUM 5.1 mmol/L (3.5-5.1); TOTAL BILIRUBIN 0.5 mg/dL (<0.1-1.0); TOTAL PROTEIN 4.9 g/dL (6.4-8.2)
[2021-02-23 13:47] LABS: ABSOLUTE LYMPHOCYTES 0.4 thou/uL (0.8-5.3); ABSOLUTE MONOCYTES 0.5 thou/uL (0.0-1.2); ABSOLUTE NEUTROPHILS 12.2 thou/uL (1.6-8.1)
[2021-02-23 13:48] LABS: PLATELET ESTIMATE ADEQUATE
[2021-02-24] VITALS (64 sets, daily range): BP systolic 102–147; BP diastolic 39–71
--- NOTE | 2021-02-24 18:11 | NUR ---
ASSUMED CARE AT 0700. PT AFEBRIAL AND WNL; LEFT 2 MESSAGES FOR SURGERY REGARDING WORSENING PNEUMO. DR. GARCIA AWARE. TITRATED PROPOFOL TO 48 MCG. DILAUDED, VERSED, PROPOFOL DRIPS. NO DRAINAGE FROM CHEST TUBE. CONSULT FOR TRACH AND PEG ENTERED. NEPRO RUNNING AT 50, WHICH IS GOAL FOR PT. NO BM.
[2021-02-25] VITALS (35 sets, daily range): BP systolic 107–159; BP diastolic 43–76
--- NOTE | 2021-02-25 04:29 | NUR ---
ASSUMED CARE AT 1900H, ON VENT AT 70% AND TITRATED. ON VERSED, PRECEDEX, DILAUDED AND PROPOFOL DRIP. NO FEVER AND NO DISTRESS. THERE WAS BREEN TO BLACKISH MOLDS FROM THE TUBE OF [facility] CHEST DRAIN, DRAINAGE CHANGED. AT TIMES, PT TAKING SMALL BREATH, PROPOFOL INCREASED. CONTINUE MONITORING AND TOWARDS GOALS.
[2021-02-25 05:33] LABS: CALCIUM 7.7 mg/dL (8.5-10.1); CREATININE 0.7 mg/dL (0.6-1.3); MAGNESIUM 1.9 mg/dL (1.8-2.4); POTASSIUM 4.4 mmol/L (3.5-5.1); TOTAL BILIRUBIN 0.5 mg/dL (<0.1-1.0); TOTAL PROTEIN 4.8 g/dL (6.4-8.2)
[2021-02-25 05:45] LABS: HEMATOCRIT 29.4 % (42.0-52.0); MCH 30.8 pg (26.0-34.0); MCV 90.4 fL (80.0-100.0); MPV 7.8 fl. (7.2-11.1); RBC 3.25 mil/uL (4.50-6.00); RDW-CV 16.4 % (10.5-14.5); WBC 10.9 thou/uL (4.0-11.0)
--- NOTE | 2021-02-25 10:34 | NUR ---
barriers to dc: pt is on vent & sedation. during sedation vacation pt was able to follow commands and expressed appropriate affect demonstrating comprehension.
[2021-02-25 10:51] LABS: PCO2 49.5 mmHg (35.0-45.0); pH 7.432 (7.340-7.450)
[2021-02-25 10:53] LABS: PO2 55.3 mmHg (75.0-100.0)
[2021-02-25 13:13] LABS: LIPASE 104 U/L (73-393); TRIGLYCERIDE 69 mg/dL (<150)
[2021-02-25 19:21] LABS: URINE BILIRUBIN NEGATIVE (Negative); URINE BLOOD TRACE (Negative); URINE CLARITY SL CLOUDY; URINE COLOR YELLOW; URINE GLUCOSE-RANDOM NEGATIVE (Negative); URINE KETONES NEGATIVE (Negative); URINE LEUKOCYTES-REFLEX NEGATIVE (Negative); URINE NITRITE-REFLEX NEGATIVE (Negative); URINE PROTEIN NEGATIVE (Negative); URINE SPECIFIC GRAVITY 1.015 (1.005-1.030); URINE UROBILINOGEN 0.2 E.U./dl (0.2-1.0)
[2021-02-25 19:49] LABS: BACTERIA-REFLEX 1-9 Few /HPF (None Seen); CASTS None Seen /LPF (None Seen); CRYSTALS None Seen /LPF (None Seen); SQUAMOUS 0-3 Few /LPF (0-3); URINE RBC 0-2 Rare /HPF (0-2); URINE WBC-REFLEX 0-5 Rare /HPF (0-5)
[2021-02-26] VITALS (36 sets, daily range): BP systolic 88–201; BP diastolic 36–85
--- NOTE | 2021-02-26 04:16 | NUR ---
ASSUMED CARE AT 1910H, ON VENT AT 80% TITRATED. STILL ON VERSED, PRECEDEX AND DILAUDED AT MAX DOSE. PROPOFOL AT 50 MICS. PT WAS MORE SEDATED AND IN SYNC WITH THE VENT. HIGHEST TUBE FEEDING RESIDUAL WAS 300ML, TF DECREASED TO 30ML/HR. LOW GRADE FEVER EARLY IN MY SHIFT. CONTINUE MONITORING AND TOWARDS GOALS.
[2021-02-26 05:03] LABS: HEMATOCRIT 27.8 % (42.0-52.0); HEMOGLOBIN 9.7 gm/dL (14.0-18.0); MCH 31.2 pg (26.0-34.0); MCHC 34.8 g/dL (28.0-37.0); MCV 89.7 fL (80.0-100.0); MPV 7.5 fl. (7.2-11.1); NUCLEATED RBCS 0 /100WBC; PLATELET COUNT* 161 thou/uL (150-400); RDW-CV 16.1 % (10.5-14.5)
[2021-02-26 05:16] LABS: ALBUMIN 2.1 g/dL (3.4-5.0); CALCIUM 7.5 mg/dL (8.5-10.1); CREATININE 0.6 mg/dL (0.6-1.3); MAGNESIUM 1.8 mg/dL (1.8-2.4); POTASSIUM 3.6 mmol/L (3.5-5.1); TOTAL BILIRUBIN 0.5 mg/dL (<0.1-1.0); TOTAL PROTEIN 4.7 g/dL (6.4-8.2)
[2021-02-26 06:05] LABS: ABSOLUTE LYMPHOCYTES 0.3 thou/uL (0.8-5.3); ABSOLUTE MONOCYTES 0.1 thou/uL (0.0-1.2); ABSOLUTE NEUTROPHILS 9.6 thou/uL (1.6-8.1); ANISOCYTOSIS 1+; PLATELET ESTIMATE ADEQUATE; POIKILOCYTOSIS 1+
[2021-02-26 08:29] LABS: BE 8.5 mmol/L (-2 to +3); PO2 74.8 mmHg (75.0-100.0); pH 7.442 (7.340-7.450)
[2021-02-26 08:47] LABS: PCO2 51.1 mmHg (35.0-45.0)
--- NOTE | 2021-02-26 08:50 | NUR ---
WOUND NURSE PATIENT SEEN TOAY TO ADDRESS SACRAL SKIN BREAKDOWN. AFFECTED AREA MEASURES 5.0 X 6.5 X 0.1 CM. APPEARS A RUPTURED BULLA WITH IRREGULAR EDGES. CONTAINS RED, NONGRANULATING TISSUE IN HE WOUND BED. MODERATE AMOUNT OF SEROUSANGUINOUS DRAINAGE. PERIWOUND IS PINK BLANCHEABLE, NOT RED, WARM TO TOUCH OR INDURATED. CLEANSED WITH SOAP AND WATER, RINSED, THEN PATTED DRY. APPLIED SKIN PREP TO PERIWOUND TISSUE. APPLIED AQUACEL AG TO WOUND, THEN COVERED WITH A SACRAL BORDERED FOAM DRESSING. PATIENT IS UNCONSCIOUS AND ON VENTILATOR, WITH CHEST TUBE IN PLACE 2ND TO COVID. PATIENT WITH UNAVOIDABLE STAGE 2 PRESSURE INJURY. PATIENT O2 DESATURATES WITH REPOSITIONING.
--- NOTE | 2021-02-26 13:25 | NUR ---
POC is for pt to have chest tube placed today.
[2021-02-26 17:04] LABS: BE 11.1 mmol/L (-2 to +3); pH 7.466 (7.340-7.450)
[2021-02-26 17:11] LABS: PCO2 51.7 mmHg (35.0-45.0); PO2 51.4 mmHg (75.0-100.0)
[2021-02-26 17:27] LABS: CALCIUM 7.8 mg/dL (8.5-10.1); CREATININE 0.6 mg/dL (0.6-1.3); MAGNESIUM 1.7 mg/dL (1.8-2.4); POTASSIUM 3.6 mmol/L (3.5-5.1)
[2021-02-27] VITALS (68 sets, daily range): BP systolic 65–158; BP diastolic 39–87
[2021-02-27 04:10] LABS: ABSOLUTE EOSINOPHILS 0.1 thou/uL (0.0-0.7); ABSOLUTE LYMPHOCYTES 0.3 thou/uL (0.8-5.3); ABSOLUTE MONOCYTES 0.1 thou/uL (0.0-1.2); EOSINOPHILS 0.8 %; HEMOGLOBIN 10.2 gm/dL (14.0-18.0); MCHC 34.3 g/dL (28.0-37.0); NUCLEATED RBCS 0 /100WBC; WBC 7.5 thou/uL (4.0-11.0)
[2021-02-27 04:11] LABS: HEMATOCRIT 29.9 % (42.0-52.0); LYMPHOCYTES 3.9 %; MCH 31.3 pg (26.0-34.0); MCV 91.2 fL (80.0-100.0); MONOCYTES 1.3 %; MPV 7.3 fl. (7.2-11.1); PLATELET COUNT* 160 thou/uL (150-400); RBC 3.28 mil/uL (4.50-6.00); RDW-CV 16.6 % (10.5-14.5)
[2021-02-27 04:26] LABS: ALBUMIN 2.2 g/dL (3.4-5.0); ALKALINE PHOSPHATASE 72 U/L (46-116); ANION GAP < 0 mmol/L (7-16); BUN 35 mg/dL (7-18); CALCIUM 7.8 mg/dL (8.5-10.1); CHLORIDE 104 mmol/L (98-107); CO2 34 mmol/L (21-32); CREATININE 0.6 mg/dL (0.6-1.3); GLUCOSE 124 mg/dL (70-99); MAGNESIUM 1.9 mg/dL (1.8-2.4); POTASSIUM 4.4 mmol/L (3.5-5.1); SGOT 39 U/L (15-37); SGPT 129 U/L (30-65); TOTAL BILIRUBIN 0.8 mg/dL (<0.1-1.0); TOTAL PROTEIN 4.9 g/dL (6.4-8.2)
[2021-02-27 04:35] LABS: SODIUM 133 mmol/L (136-145)
[2021-02-27 08:52] LABS: BE 4.1 mmol/L (-2 to +3)
[2021-02-27 09:03] LABS: PCO2 69.1 mmHg (35.0-45.0); pH 7.288 (7.340-7.450)
[2021-02-27 09:06] LABS: ANISOCYTOSIS 1+; PLATELET ESTIMATE ADEQUATE
[2021-02-27 09:07] LABS: POLYCHROMASIA 2+
[2021-02-27 11:15] LABS: BE 5.6 mmol/L (-2 to +3); PO2 71.8 mmHg (75.0-100.0); pH 7.306 (7.340-7.450)
[2021-02-27 11:16] LABS: PCO2 69.3 mmHg (35.0-45.0)
[2021-02-27 13:40] LABS: URINE BILIRUBIN NEGATIVE (Negative); URINE BLOOD 2+ (Negative); URINE CLARITY CLEAR; URINE COLOR YELLOW; URINE GLUCOSE-RANDOM NEGATIVE (Negative); URINE KETONES NEGATIVE (Negative); URINE LEUKOCYTES-REFLEX NEGATIVE (Negative); URINE NITRITE-REFLEX NEGATIVE (Negative); URINE PROTEIN NEGATIVE (Negative); URINE SPECIFIC GRAVITY <= 1.005 (1.005-1.030); URINE UROBILINOGEN 0.2 E.U./dl (0.2-1.0)
[2021-02-27 14:02] LABS: BACTERIA-REFLEX 1-9 Few /HPF (None Seen); CASTS None Seen /LPF (None Seen); CRYSTALS None Seen /LPF (None Seen); SQUAMOUS 0-3 Few /LPF (0-3); URINE RBC 0-2 Rare /HPF (0-2); URINE WBC-REFLEX 0-5 Rare /HPF (0-5)
--- NOTE | 2021-02-27 16:25 | NUR ---
Patient remains on vent (FiO2 100%). Patient was hypoxic and hypotensive this morning. Patient currently has a r chest tube in place. Continued versed, dilaudid, precedex, propofol, TF and steroids. Continued wound care for sacral wound. Grandfather at bedside. If FiO2 is lowered then possible trach/peg if patient progresses in that direction. CM to continue to follow
[2021-02-27 17:08] LABS: CALCIUM 7.6 mg/dL (8.5-10.1); CREATININE 0.7 mg/dL (0.6-1.3); MAGNESIUM 2.3 mg/dL (1.8-2.4); POTASSIUM 4.2 mmol/L (3.5-5.1)
[2021-02-27 17:20] LABS: BE 7.5 mmol/L (-2 to +3); PO2 72.2 mmHg (75.0-100.0)
[2021-02-27 17:28] LABS: PCO2 63.6 mmHg (35.0-45.0)
[2021-02-27 18:22] LABS: CREATININE 0.7 mg/dL (0.6-1.3); POTASSIUM 4.3 mmol/L (3.5-5.1)
[2021-02-28] VITALS (76 sets, daily range): BP systolic 82–167; BP diastolic 38–93
[2021-02-28 05:15] LABS: ABSOLUTE LYMPHOCYTES 0.2 thou/uL (0.8-5.3); ABSOLUTE MONOCYTES 0.2 thou/uL (0.0-1.2); ABSOLUTE NEUTROPHILS 8.8 thou/uL (1.6-8.1); EOSINOPHILS 0.1 %; HEMATOCRIT 27.3 % (42.0-52.0); HEMOGLOBIN 9.3 gm/dL (14.0-18.0); MCH 30.8 pg (26.0-34.0); MCHC 34.1 g/dL (28.0-37.0); MCV 90.4 fL (80.0-100.0); MONOCYTES 1.9 %; MPV 7.3 fl. (7.2-11.1); NUCLEATED RBCS 0 /100WBC; PLATELET COUNT* 144 thou/uL (150-400); RBC 3.02 mil/uL (4.50-6.00); RDW-CV 17.5 % (10.5-14.5); WBC 9.1 thou/uL (4.0-11.0)
[2021-02-28 05:20] LABS: APTT 25.4 Seconds (25.0-31.3); INR 1.4; PROTIME 14.7 Seconds (9.20-11.50)
[2021-02-28 05:22] LABS: PHOSPHORUS* 2.2 mg/dL (2.5-4.9)
[2021-02-28 05:30] LABS: ALBUMIN 2.3 g/dL (3.4-5.0); CREATININE 0.6 mg/dL (0.6-1.3); MAGNESIUM 2.1 mg/dL (1.8-2.4); TOTAL BILIRUBIN 0.8 mg/dL (<0.1-1.0); TOTAL PROTEIN 5.5 g/dL (6.4-8.2)
[2021-02-28 07:51] LABS: BE 10.7 mmol/L (-2 to +3); PO2 71.6 mmHg (75.0-100.0); pH 7.439 (7.340-7.450)
[2021-02-28 07:54] LABS: PCO2 55.6 mmHg (35.0-45.0)
--- NOTE | 2021-02-28 10:44 | NUR ---
ICU Rounds: Patient remains on vent (FiO2 75%) and sedated. Continued propofol, precedex, versed, levo, cookie, dilaudid, steroids, TF and abx. Spoke to grandfather Victor M at bedside. Family aware of plan of care. Goal is to lower FiO2 in order to proceed with peg and trach. Family understands that post peg/trach LTAC is next step. 1st choice, per family for LTAC is [place]. CM to connect with [facility] to identify any potential barriers for discharge.
[2021-02-28 17:16] LABS: CALCIUM 8.2 mg/dL (8.5-10.1); CREATININE 0.7 mg/dL (0.6-1.3); MAGNESIUM 1.9 mg/dL (1.8-2.4); POTASSIUM 4.1 mmol/L (3.5-5.1)
[2021-03-01] VITALS (64 sets, daily range): BP systolic 92–245; BP diastolic 41–108
[2021-03-01 06:00] LABS: ABSOLUTE LYMPHOCYTES 0.3 thou/uL (0.8-5.3); ABSOLUTE MONOCYTES 0.2 thou/uL (0.0-1.2); BASOPHILS 0.1 %; EOSINOPHILS 0.2 %; HEMATOCRIT 25.9 % (42.0-52.0); HEMOGLOBIN 8.8 gm/dL (14.0-18.0); LYMPHOCYTES 2.9 %; MCH 30.7 pg (26.0-34.0); MCHC 33.8 g/dL (28.0-37.0); MCV 90.7 fL (80.0-100.0); MONOCYTES 2.8 %; MPV 7.4 fl. (7.2-11.1); NUCLEATED RBCS 0 /100WBC; PLATELET COUNT* 126 thou/uL (150-400); RBC 2.85 mil/uL (4.50-6.00); RDW-CV 17.6 % (10.5-14.5); WBC 8.5 thou/uL (4.0-11.0)
[2021-03-01 06:33] LABS: CALCIUM 8.2 mg/dL (8.5-10.1); CREATININE 0.6 mg/dL (0.6-1.3); MAGNESIUM 2.3 mg/dL (1.8-2.4); POTASSIUM 3.9 mmol/L (3.5-5.1); TOTAL BILIRUBIN 0.7 mg/dL (<0.1-1.0)
[2021-03-01 06:34] LABS: PHOSPHORUS* 3.1 mg/dL (2.5-4.9)
[2021-03-01 07:21] LABS: PREALBUMIN 18.7 mg/dL (18.0-35.7)
[2021-03-01 08:25] LABS: BE 7.9 mmol/L (-2 to +3); PO2 65.5 mmHg (75.0-100.0); pH 7.387 (7.340-7.450)
[2021-03-01 08:27] LABS: PCO2 58.3 mmHg (35.0-45.0)
--- NOTE | 2021-03-01 12:48 | NUR ---
ICU Rounds: Patient remains on vent (FiO2 75% and peep 5). Continued dilaudid, cookie, abx, steroids and precedex. Trach and peg planned once FiO2 is around 65%. Patient to remain through the weekend. CM to continue to follow
--- NOTE | 2021-03-01 15:24 | NUR ---
Nutrition: noted change of TF formula to TwoCal HN at 35 ml/hr. With Propofol providing 739 kcal/d and TF providing 1680 kcal; pt is meeting >100% est kcal needs. However, TF is only providing 70 g protein; pt est need is 91-137 g protein (based on 1-1.5 g/kg). TF is only meeting about 77% of low-end est protein needs. Rec adding 1 packet of Beneprotein QID to meet >100% of low-end est protein needs, however, this would require pt to receive additional water.
[2021-03-01 17:15] LABS: CALCIUM 8.1 mg/dL (8.5-10.1); CREATININE 0.7 mg/dL (0.6-1.3); MAGNESIUM 2.1 mg/dL (1.8-2.4); POTASSIUM 4.2 mmol/L (3.5-5.1)
[2021-03-02] VITALS (62 sets, daily range): BP systolic 100–160; BP diastolic 51–81
[2021-03-02 04:13] LABS: HEMATOCRIT 26.1 % (42.0-52.0); HEMOGLOBIN 8.7 gm/dL (14.0-18.0); MCH 30.1 pg (26.0-34.0); MCHC 33.4 g/dL (28.0-37.0); MCV 90.1 fL (80.0-100.0); MPV 7.1 fl. (7.2-11.1); NUCLEATED RBCS 0 /100WBC; PLATELET COUNT* 133 thou/uL (150-400); RDW-CV 17.7 % (10.5-14.5); WBC 7.9 thou/uL (4.0-11.0)
[2021-03-02 04:25] LABS: ALBUMIN 2.9 g/dL (3.4-5.0); CREATININE 0.7 mg/dL (0.6-1.3); TOTAL BILIRUBIN 0.6 mg/dL (<0.1-1.0); TOTAL PROTEIN 5.8 g/dL (6.4-8.2)
[2021-03-02 06:43] LABS: ABSOLUTE LYMPHOCYTES 0.9 thou/uL (0.8-5.3); ABSOLUTE MONOCYTES 0.2 thou/uL (0.0-1.2); ABSOLUTE NEUTROPHILS 6.9 thou/uL (1.6-8.1); ANISOCYTOSIS 1+; PLATELET ESTIMATE DECREASED; POIKILOCYTOSIS 1+
--- NOTE | 2021-03-02 19:05 | NUR ---
assumed care of pt at 0700 pt progressed toward goals today cookie titrated down fio2 65% per dr rob call dr villar to arrange trach and peg thursday as long as patient domingo sat on new setting mom at bedside through out shift updates given
[2021-03-03] VITALS (17 sets, daily range): BP systolic 87–137; BP diastolic 39–71
--- NOTE | 2021-03-03 05:14 | NUR ---
ASSUMED CARE AT 1915H, ON VENT AT 65% AND TOLERATED. MATTHEW DRIP OFF. NO FEVER AND NO DISTRESS NOTED. UPDATE GIVEN TO ANGEL. STILL ON VERSED, DILAUDED AND PRECEDEX AT MAX DOSE. CONTINUE MONITORING AND TOWARDS GOALS.
[2021-03-03 06:53] LABS: ABSOLUTE BASOPHILS 0.1 thou/uL (0.0-0.2); ABSOLUTE LYMPHOCYTES 0.9 thou/uL (0.8-5.3); ABSOLUTE MONOCYTES 0.3 thou/uL (0.0-1.2); ABSOLUTE NEUTROPHILS 6.7 thou/uL (1.6-8.1); BASOPHILS 0.7 %; EOSINOPHILS 0.6 %; HEMATOCRIT 27.6 % (42.0-52.0); HEMOGLOBIN 9.5 gm/dL (14.0-18.0); LYMPHOCYTES 11.2 %; MCH 30.9 pg (26.0-34.0); MCHC 34.3 g/dL (28.0-37.0); MCV 90.2 fL (80.0-100.0); MONOCYTES 3.6 %; NUCLEATED RBCS 0 /100WBC; PLATELET COUNT* 122 thou/uL (150-400); POLYS 83.9 %; RBC 3.06 mil/uL (4.50-6.00); RDW-CV 17.3 % (10.5-14.5); WBC 7.9 thou/uL (4.0-11.0)
[2021-03-03 07:08] LABS: ALBUMIN 2.8 g/dL (3.4-5.0); CALCIUM 8.3 mg/dL (8.5-10.1); CREATININE 0.7 mg/dL (0.6-1.3); POTASSIUM 3.5 mmol/L (3.5-5.1); TOTAL BILIRUBIN 0.6 mg/dL (<0.1-1.0); TOTAL PROTEIN 5.8 g/dL (6.4-8.2)
[2021-03-03 07:09] LABS: PHOSPHORUS* 2.5 mg/dL (2.5-4.9)
[2021-03-03 08:45] LABS: PO2 66.8 mmHg (75.0-100.0); pH 7.421 (7.340-7.450)
[2021-03-03 08:48] LABS: PCO2 54.7 mmHg (35.0-45.0)
[2021-03-04] VITALS (48 sets, daily range): BP systolic 94–138; BP diastolic 52–77
[2021-03-04 04:53] LABS: ABSOLUTE LYMPHOCYTES 0.6 thou/uL (0.8-5.3); ABSOLUTE MONOCYTES 0.3 thou/uL (0.0-1.2); ABSOLUTE NEUTROPHILS 6.5 thou/uL (1.6-8.1); BASOPHILS 0.2 %; EOSINOPHILS 0.5 %; HEMATOCRIT 25.6 % (42.0-52.0); HEMOGLOBIN 8.8 gm/dL (14.0-18.0); LYMPHOCYTES 8.6 %; MCHC 34.4 g/dL (28.0-37.0); MCV 90.2 fL (80.0-100.0); MONOCYTES 3.6 %; MPV 6.7 fl. (7.2-11.1); NUCLEATED RBCS 0 /100WBC; PLATELET COUNT* 115 thou/uL (150-400); POLYS 87.1 %; RBC 2.84 mil/uL (4.50-6.00); RDW-CV 16.9 % (10.5-14.5); WBC 7.5 thou/uL (4.0-11.0)
[2021-03-04 05:18] LABS: ALBUMIN 3.1 g/dL (3.4-5.0); CALCIUM 8.5 mg/dL (8.5-10.1); CREATININE 0.6 mg/dL (0.6-1.3); MAGNESIUM 1.9 mg/dL (1.8-2.4); POTASSIUM 3.9 mmol/L (3.5-5.1); TOTAL BILIRUBIN 0.6 mg/dL (<0.1-1.0); TOTAL PROTEIN 5.9 g/dL (6.4-8.2)
[2021-03-04 08:30] LABS: BE 6.2 mmol/L (-2 to +3); PO2 63.3 mmHg (75.0-100.0); pH 7.358 (7.340-7.450)
[2021-03-04 08:34] LABS: PCO2 61.6 mmHg (35.0-45.0)
--- NOTE | 2021-03-04 14:40 | NUR ---
ICU Rounds: Patient remains on vent (FiO2 60% and peep 5). Trach planned soon for patient. Anticoag held for potential procedure. LTAC ([facility]) is planned for discharge. [facility] following patient at this time. Once trach is placed, auth can be submitted for LTAC after trach has been in x7 days per patient's insurance. Nursing and family updated on plan of care. Faxed updated clinicals and med list to [facility]. Sedation will need to be decreased in order for patient to follow simple commands for LTAC to accept since no DPOA in place. Doctors made aware. Continued precedex, versed, propofol, dilaudid, abx, steroids and cookie. Rt chest tube remains in place.
--- NOTE | 2021-03-04 19:02 | NUR ---
PATIENT'S VENT SETTINGS WEANED DOWN PER RESPIRATORY. FI02 55% PEEP 5. AFEBRILE. IV LASIX AND ALBUMIN GIVEN. 3500 ML'S URINE OUTPUT. Q2 TURNS. WOUND TO SACRUM. MATTHEW AT 5 ALL DAY. PER SURGERY WILL HAVE TRACH AND PEG PLACED THURSDAY, 03/06. FAMILY UPDATED. ORAL CARE PROVIDED Q2.
--- NOTE | 2021-03-04 20:25 | NUR ---
DR KO CALLED AND TOLD THIS RN THAT THEY WERE PLANNING ON DOING TRACH AND PEG ON 03/06/21. FAMILY NOTIFIED. FIO2 AT 55%, TOLERATING WELL.
[2021-03-05] VITALS (60 sets, daily range): BP systolic 92–153; BP diastolic 50–83
[2021-03-05 04:34] LABS: HEMATOCRIT 25.4 % (42.0-52.0); HEMOGLOBIN 8.9 gm/dL (14.0-18.0); MCH 31.3 pg (26.0-34.0); MCHC 34.9 g/dL (28.0-37.0); MCV 89.9 fL (80.0-100.0); MPV 6.8 fl. (7.2-11.1); NUCLEATED RBCS 0 /100WBC; PLATELET COUNT* 129 thou/uL (150-400); RBC 2.83 mil/uL (4.50-6.00); RDW-CV 17.5 % (10.5-14.5); WBC 8.3 thou/uL (4.0-11.0)
[2021-03-05 04:46] LABS: CALCIUM 8.6 mg/dL (8.5-10.1); CREATININE 0.5 mg/dL (0.6-1.3); POTASSIUM 3.6 mmol/L (3.5-5.1)
[2021-03-05 04:52] LABS: APTT 22.9 Seconds (25.0-31.3); INR 1.2; PROTIME 12.8 Seconds (9.20-11.50)
[2021-03-05 06:15] LABS: ABSOLUTE MONOCYTES 0.1 thou/uL (0.0-1.2); ABSOLUTE NEUTROPHILS 7.2 thou/uL (1.6-8.1); MYELOCYTES 1 %; PLATELET ESTIMATE DECREASED
[2021-03-05 06:16] LABS: ANISOCYTOSIS 1+; POIKILOCYTOSIS 1+; POLYCHROMASIA 1+
[2021-03-05 08:32] LABS: BE 7.5 mmol/L (-2 to +3); pH 7.386 (7.340-7.450)
[2021-03-05 08:34] LABS: PO2 59.2 mmHg (75.0-100.0)
--- NOTE | 2021-03-05 15:57 | NUR ---
ICU Rounds: Patient remains on vent (FiO2 60% and peep 5). Trach/peg planned for tomorrow. Family aware of plan of care. Updated clinicals will be faxed to [facility] ([facility]) post procedure. Continued dilaudid, abx, propofol, precedex, versed and steroids. Rt chest tube in place.
[2021-03-06] VITALS (45 sets, daily range): BP systolic 89–143; BP diastolic 47–82
[2021-03-06 05:11] LABS: ALBUMIN 3.2 g/dL (3.4-5.0); CALCIUM 8.1 mg/dL (8.5-10.1); CREATININE 0.6 mg/dL (0.6-1.3); POTASSIUM 4.5 mmol/L (3.5-5.1); TOTAL BILIRUBIN 0.6 mg/dL (<0.1-1.0); TOTAL PROTEIN 6.2 g/dL (6.4-8.2)
[2021-03-06 05:17] LABS: MCV 90.6 fL (80.0-100.0); NUCLEATED RBCS 0 /100WBC
[2021-03-06 05:18] LABS: ABSOLUTE LYMPHOCYTES 0.5 thou/uL (0.8-5.3); ABSOLUTE MONOCYTES 0.3 thou/uL (0.0-1.2); ABSOLUTE NEUTROPHILS 10.6 thou/uL (1.6-8.1); BASOPHILS 0.2 %; EOSINOPHILS 0.3 %; HEMATOCRIT 27.8 % (42.0-52.0); HEMOGLOBIN 9.5 gm/dL (14.0-18.0); LYMPHOCYTES 4.1 %; MCHC 34.3 g/dL (28.0-37.0); MONOCYTES 2.7 %; PLATELET COUNT* 154 thou/uL (150-400); POLYS 92.7 %; RBC 3.06 mil/uL (4.50-6.00); RDW-CV 17.8 % (10.5-14.5); WBC 11.4 thou/uL (4.0-11.0)
[2021-03-06 05:30] LABS: PHOSPHORUS* 3.1 mg/dL (2.5-4.9)
--- NOTE | 2021-03-06 08:40 | NUR ---
REPORT RECIEVED FROM NOHEMY RAMÍREZ RN. PT ASSESSMENT DONE AND DOCUMENTED AT 0745. PT TRANSPORTED TO SURGERY BY TRANSLITERATOR & RT AT 0755. PT STABLE PRIOR TO TRANSPORT TO OR. AT BEDSIDE, ALL QUESTIONS AND CONCERNS ANSWERED.
--- NOTE | 2021-03-06 09:45 | NUR ---
ICU Rounds: Patient currently in surgery at this time for peg/trach. Once clinicals are available they will be faxed to [facility] ([facility]). Patient remains on vent (FiO2 60% and peep 5). Once peg/trach is placed, sedation vacation planned. Continued TF, precedex, versed, propofol, dilaudid, steroids and abx. Rt chest tube remains in place.
[2021-03-06 11:50] LABS: BE 1.6 mmol/L (-2 to +3); pH 7.359 (7.340-7.450)
[2021-03-06 11:51] LABS: PCO2 50.2 mmHg (35.0-45.0)
--- NOTE | 2021-03-06 16:19 | NUR ---
WOUND NURSE: PATIENT SEEN FOR FOLLUOW UP ASSESSMENT OF SACRAL AND GLUTEAL PRESSURE INJURIES PREESENTS WTH MAROON NONBLANCHEABLE RUPTURED AND BLISTERED TISSUE IN AN AREA MEASURING SD. WOUND CARE PROVIDED PRESCRIBED. PLAN TO TRANSFER PATIENT ONTO [facility] BED TOMORROW.
--- NOTE | 2021-03-06 18:19 | NUR ---
Pt returned from OR at ~1000 this morning. Pt was stable upon arrival. Trach & PEG in place, minimal serosanguineous drainage from both sites. Drain sponge placed underneath faceplate of trach. Pt discussed with Dr. Duke, will begin to wean off of versed to maintain a RR <30. Nnamdi titrated to keep MAP >60 and versed weaned from 15mg to 13mg so far this afternoon. Will continue to titrate as able.
[2021-03-07] VITALS (93 sets, daily range): BP systolic 38–162; BP diastolic 20–89
[2021-03-07 03:40] LABS: ABSOLUTE BASOPHILS 0.1 thou/uL (0.0-0.2); ABSOLUTE EOSINOPHILS 0.1 thou/uL (0.0-0.7); ABSOLUTE LYMPHOCYTES 1.4 thou/uL (0.8-5.3); ABSOLUTE MONOCYTES 0.5 thou/uL (0.0-1.2); ABSOLUTE NEUTROPHILS 12.6 thou/uL (1.6-8.1); BASOPHILS 0.4 %; EOSINOPHILS 0.5 %; HEMATOCRIT 30.1 % (42.0-52.0); LYMPHOCYTES 9.7 %; MCH 30.1 pg (26.0-34.0); MCV 91.1 fL (80.0-100.0); MONOCYTES 3.1 %; MPV 6.7 fl. (7.2-11.1); NUCLEATED RBCS 0 /100WBC; PLATELET COUNT* 153 thou/uL (150-400); POLYS 86.3 %; RBC 3.31 mil/uL (4.50-6.00); RDW-CV 18.8 % (10.5-14.5); WBC 14.6 thou/uL (4.0-11.0)
[2021-03-07 03:51] LABS: ALBUMIN 3.2 g/dL (3.4-5.0); CALCIUM 7.7 mg/dL (8.5-10.1); CREATININE 0.6 mg/dL (0.6-1.3); POTASSIUM 4.4 mmol/L (3.5-5.1); TOTAL BILIRUBIN 0.6 mg/dL (<0.1-1.0); TOTAL PROTEIN 6.2 g/dL (6.4-8.2)
--- NOTE | 2021-03-07 08:26 | NUR ---
Faxed clinicals to [facility]/LTAC (F: [phone]/ -Shaji).
--- NOTE | 2021-03-07 09:35 | NUR ---
ICU ROUNDS: PT TRACH AND PEG COMPLETED YESTERDAY. PT FAILED WEAN TRAILS, [facility] FOLLOWING.
[2021-03-07 10:01] LABS: BE 4.3 mmol/L (-2 to +3); pH 7.365 (7.340-7.450)
[2021-03-07 10:33] LABS: PCO2 55.1 mmHg (35.0-45.0); PO2 181.5 mmHg (75.0-100.0)
[2021-03-08] VITALS (38 sets, daily range): BP systolic 100–171; BP diastolic 52–91
[2021-03-08 05:56] LABS: ABSOLUTE LYMPHOCYTES 0.6 thou/uL (0.8-5.3); ABSOLUTE MONOCYTES 0.3 thou/uL (0.0-1.2); ABSOLUTE NEUTROPHILS 14.5 thou/uL (1.6-8.1); BASOPHILS 0.2 %; EOSINOPHILS 0.1 %; HEMATOCRIT 29.5 % (42.0-52.0); HEMOGLOBIN 9.7 gm/dL (14.0-18.0); LYMPHOCYTES 3.8 %; MCH 29.8 pg (26.0-34.0); MCHC 33.1 g/dL (28.0-37.0); MCV 90.1 fL (80.0-100.0); MONOCYTES 2.2 %; MPV 6.9 fl. (7.2-11.1); NUCLEATED RBCS 0 /100WBC; PLATELET COUNT* 146 thou/uL (150-400); POLYS 93.7 %; RBC 3.27 mil/uL (4.50-6.00); RDW-CV 18.1 % (10.5-14.5); WBC 15.5 thou/uL (4.0-11.0)
[2021-03-08 06:08] LABS: ALBUMIN 3.1 g/dL (3.4-5.0); CALCIUM 8.1 mg/dL (8.5-10.1); CREATININE 0.5 mg/dL (0.6-1.3); MAGNESIUM 2.4 mg/dL (1.8-2.4); POTASSIUM 3.8 mmol/L (3.5-5.1); TOTAL BILIRUBIN 0.7 mg/dL (<0.1-1.0); TOTAL PROTEIN 6.4 g/dL (6.4-8.2)
[2021-03-08 08:35] LABS: BE 5.1 mmol/L (-2 to +3); PO2 66.3 mmHg (75.0-100.0); pH 7.372 (7.340-7.450)
[2021-03-08 08:37] LABS: PCO2 55.4 mmHg (35.0-45.0)
--- NOTE | 2021-03-08 15:09 | NUR ---
ICU Rounds: Patient remains on vent (FiO2 60% and peep 5). Continued cookie, dilaudid, versed, propofol, steroids and precedex. Spoke to [facility] who stated that they are on track to [facility]ip for auth on Monday 03/12. CM to fax updated clinicals the morning of 03/12. Per Shaji at [facility], she stated that she does not see any current barriers to accepting patient, however it is ideal if the patient can follow some commands. Spoke to Srikanth, who stated that he will attempt to lessen his sedation but the patient is not a candidate for a sedation vacation at this time. Spoke to Param over the phone and updated on plan of care. Patient to remain through the weekend.
[2021-03-09] VITALS (63 sets, daily range): BP systolic 82–174; BP diastolic 39–87
[2021-03-09 00:12] LABS: HEMATOCRIT 27.5 % (42.0-52.0); HEMOGLOBIN 9.1 gm/dL (14.0-18.0); MCHC 33.2 g/dL (28.0-37.0); MCV 90.3 fL (80.0-100.0); MPV 7.1 fl. (7.2-11.1); RBC 3.05 mil/uL (4.50-6.00); RDW-CV 19.1 % (10.5-14.5); WBC 18.7 thou/uL (4.0-11.0)
[2021-03-09 04:17] LABS: HEMATOCRIT 27.1 % (42.0-52.0); HEMOGLOBIN 9.1 gm/dL (14.0-18.0); MCH 30.4 pg (26.0-34.0); MCHC 33.6 g/dL (28.0-37.0); MCV 90.6 fL (80.0-100.0); MPV 7.1 fl. (7.2-11.1); NUCLEATED RBCS 0 /100WBC; PLATELET COUNT* 180 thou/uL (150-400); RBC 2.99 mil/uL (4.50-6.00); RDW-CV 18.8 % (10.5-14.5)
[2021-03-09 04:18] LABS: ALBUMIN 3.3 g/dL (3.4-5.0); CALCIUM 7.9 mg/dL (8.5-10.1); CREATININE 0.5 mg/dL (0.6-1.3); MAGNESIUM 2.4 mg/dL (1.8-2.4); TOTAL BILIRUBIN 0.7 mg/dL (<0.1-1.0); TOTAL PROTEIN 5.9 g/dL (6.4-8.2)
[2021-03-09 06:27] LABS: ABSOLUTE LYMPHOCYTES 0.2 thou/uL (0.8-5.3); ABSOLUTE MONOCYTES 0.6 thou/uL (0.0-1.2); ABSOLUTE NEUTROPHILS 19.2 thou/uL (1.6-8.1); ATYPICAL MONONUCLEARS 3 %; PLATELET ESTIMATE ADEQUATE
--- NOTE | 2021-03-09 06:52 | NUR ---
ASSUMED PATIENT CARE AT 1900. ASSESSMENTS COMPLETED CHARTED. CARDIAC MONITORING IN PLACE. HOURLY ROUNDING IN PLACE FOR PATIENT SAFETY. FALL PRECAUTIONS IN PLACE FOR PATIENT SAFETY. BED LOCKED AND IN LOWEST POSITION. PATIENT BP DROPPED SUDDENLY AT ONE POINT DURING SHIFT. OXYGEN SATURATION DECREASED WELL WHILE HR STEADILY INCREASED. MATTHEW DRIP TITRATED TO MAINTAIN MAP OF 65 OR GREATER. LABS DRAWN AND CHEST XRAY OBATINED. DR. UMANA NOTIFIED OF PATIENT STATUS, LABS, AND CHEST XRAY. NEW ORDERS RECEIVED AND FOLLOWED, SEE EMAR FOR DETAILS. PATIENT BP INCREASED AND HR DECREASED TO NORMAL RANGE WHEN OXYGEN WAS INCREASED. CHEST RAY SHOWED A "SUSPECTED TRACE RIGHT-SIDED PNEUMOTHORAX". DR. NICOLE NOTIFIED OF PATIENT STATUS AND RESULTS. SUCTION CONNECTED TO CHEST TUEB [facility] PER DR. NICOLE'S ORDERS. A RESULT: PATIENT OXYGEN SATURATION INCREASED, HEART RATE DECREASED TO NORMATIVE RANGE. AND BP INCREASED TO NORMATIVE RANGE SO THAT MATTHEW DRIP COULD BE TITRAED DOWN.
[2021-03-09 07:44] LABS: BE 0 mmol/L (-2 to +3); PCO2 49.4 mmHg (35.0-45.0); PO2 81.4 mmHg (75.0-100.0); pH 7.341 (7.340-7.450)
[2021-03-10] VITALS (41 sets, daily range): BP systolic 100–211; BP diastolic 58–88
[2021-03-10 04:49] LABS: CALCIUM 8.4 mg/dL (8.5-10.1); CREATININE 0.4 mg/dL (0.6-1.3); POTASSIUM 4.4 mmol/L (3.5-5.1)
[2021-03-10 04:51] LABS: HEMATOCRIT 26.7 % (42.0-52.0); HEMOGLOBIN 9.1 gm/dL (14.0-18.0); MCH 30.6 pg (26.0-34.0); MCHC 34.3 g/dL (28.0-37.0); MCV 89.2 fL (80.0-100.0); RBC 2.99 mil/uL (4.50-6.00); RDW-CV 18.8 % (10.5-14.5); WBC 14.1 thou/uL (4.0-11.0)
--- NOTE | 2021-03-10 05:48 | NUR ---
PT HAS REMAINED SEDATED AND OFF OF PRESSORS THROUGHOUT THE NIGHT. HYPERTENSIVE PRESSURES NOTED AT TIMES THROUGHOUT THE NIGHT. PT RESPONDS WELL TO METOPROLOL. TUBE FEEDS HAVE BEEN PAUSED DUE TO HIGH RESIDUALS. WILL CONTINUE TO MONITOR PT FOR CHANGES IN STATUS/COMFORT LEVEL.
--- NOTE | 2021-03-10 20:09 | NUR ---
DILAUDID AND VERSED GTT TURNED OFF THIS AM. PRECEDEX CONTD AT 1.4. SEDATION AND ANTI-HYPERTENSIVES GIVEN PRN. PT VERY LABILE WITH HIS BP AND HR. ONE SMALL BM THIS EVENING. Q2 TURNS AND ORAL CARE PROVIDED. TRACH CARE PROVIDED. AT THE BEDSIDE WHOLE DAY.
[2021-03-11] VITALS (46 sets, daily range): BP systolic 55–193; BP diastolic 49–101
[2021-03-11 12:33] LABS: ABSOLUTE LYMPHOCYTES 0.5 thou/uL (0.8-5.3); ABSOLUTE MONOCYTES 0.6 thou/uL (0.0-1.2); ABSOLUTE NEUTROPHILS 14.1 thou/uL (1.6-8.1); BASOPHILS 0.1 %; EOSINOPHILS 0.1 %; HEMATOCRIT 27.8 % (42.0-52.0); HEMOGLOBIN 9.3 gm/dL (14.0-18.0); LYMPHOCYTES 3.3 %; MCH 30.3 pg (26.0-34.0); MCHC 33.4 g/dL (28.0-37.0); MCV 90.8 fL (80.0-100.0); MONOCYTES 4.1 %; NUCLEATED RBCS 0 /100WBC; PLATELET COUNT* 171 thou/uL (150-400); POLYS 92.4 %; RBC 3.06 mil/uL (4.50-6.00); RDW-CV 19.9 % (10.5-14.5); WBC 15.3 thou/uL (4.0-11.0)
[2021-03-11 12:53] LABS: ALBUMIN 3.4 g/dL (3.4-5.0); CALCIUM 8.9 mg/dL (8.5-10.1); CREATININE 0.4 mg/dL (0.6-1.3); POTASSIUM 4.3 mmol/L (3.5-5.1); TOTAL BILIRUBIN 0.8 mg/dL (<0.1-1.0); TOTAL PROTEIN 6.3 g/dL (6.4-8.2)
--- NOTE | 2021-03-11 15:45 | NUR ---
ASSUMED CARE AT 0700. PT CURRENTLY SEDATED AND HAS TRACH. TRYING TO WEAN PT OFF SEDATION MORE, BUT PT NOT TOLORATING YET TO FULLY COME OFF. STILL ON PRESEDEX AND VERSED. HR AND BP LABIAL. GIVING PUSHES METOPROLOL,ATIVAN; FENTANYL PATCH PLACED TODAY. HOPING WITH ADDITION OF FENTANYL PATCH WE CAN TITRATE BACK OFF OF VERSED.
--- NOTE | 2021-03-11 16:28 | NUR ---
ICU ROUNDS: PT HAS BEEN TRACH AND PEG. THE PLAN IS TO WEAN PT OFF VERSED. TRIALS SCHEDULED FOR TODAY. LTAC WILL SUBMIT FOR AUTH ON TOMORROW
[2021-03-12] VITALS (32 sets, daily range): BP systolic 71–153; BP diastolic 49–98
[2021-03-12 04:54] LABS: BE 4.2 mmol/L (-2 to +3); PCO2 47.7 mmHg (35.0-45.0); PO2 74.2 mmHg (75.0-100.0)
[2021-03-12 05:05] LABS: HEMATOCRIT 28.4 % (42.0-52.0); HEMOGLOBIN 9.5 gm/dL (14.0-18.0); MCH 30.8 pg (26.0-34.0); MCHC 33.6 g/dL (28.0-37.0); MCV 91.7 fL (80.0-100.0); MPV 7.3 fl. (7.2-11.1); NUCLEATED RBCS 0 /100WBC; RDW-CV 20.4 % (10.5-14.5); WBC 25.2 thou/uL (4.0-11.0)
[2021-03-12 05:09] LABS: PLATELET COUNT* 279 thou/uL (150-400)
[2021-03-12 05:20] LABS: ALBUMIN 3.3 g/dL (3.4-5.0); CALCIUM 8.6 mg/dL (8.5-10.1); CREATININE 0.7 mg/dL (0.6-1.3); MAGNESIUM 2.1 mg/dL (1.8-2.4); POTASSIUM 4.8 mmol/L (3.5-5.1); TOTAL BILIRUBIN 0.8 mg/dL (<0.1-1.0); TOTAL PROTEIN 6.3 g/dL (6.4-8.2)
[2021-03-12 05:24] LABS: PHOSPHORUS* 4.1 mg/dL (2.5-4.9)
[2021-03-12 06:50] LABS: ABSOLUTE LYMPHOCYTES 1.8 thou/uL (0.8-5.3); ABSOLUTE MONOCYTES 0.3 thou/uL (0.0-1.2); ABSOLUTE NEUTROPHILS 23.2 thou/uL (1.6-8.1); MYELOCYTES 1 %
[2021-03-12 06:51] LABS: ANISOCYTOSIS 1+; PLATELET ESTIMATE ADEQUATE; POIKILOCYTOSIS 1+; POLYCHROMASIA 1+
--- NOTE | 2021-03-12 08:42 | NUR ---
REMAINS VERY LABILE HR AND BP, TACHYPNEA >30. 0400 HR SUSTAINED >[address] PETERSEN NOTIFIED. CHEST X-RAY, EKG OBTAINED SEE CHART. SEE MAR FOR MEDS GIVEN.
[2021-03-12 08:47] LABS: BE 5.6 mmol/L (-2 to +3); PO2 62.1 mmHg (75.0-100.0); pH 7.411 (7.340-7.450)
[2021-03-12 08:49] LABS: PCO2 50.1 mmHg (35.0-45.0)
--- NOTE | 2021-03-12 09:37 | NUR ---
WOUND NURSE: PLANNED TO REASSESS PATIENT PRESSURE INJURY, BUT HE IS CURRENTLY IN SUPINE POS WITH HOB ELEVATED AND HE IS TOO UNSTABLE TO REPOSITION AT THIS TIME DUE TO TACHYCARDIA AND TACHYPNEA. PLAN TO RESCHEDULE REASSESSMENT WHEN PATIENT IS MORE STABLE.
--- NOTE | 2021-03-12 09:38 | NUR ---
Fax sent to [facility] [phone] F [phone] ER Report, H&P, Consult and procedure progress notes, last three days progress notes, med list. Called and spoke to Shaji to confirm fax sent. Last progress note 03/11/21 states vent 65% FiO2. Trach and Peg placment 03/06/21.
--- NOTE | 2021-03-12 11:29 | EKG ---
[place] [address] ELECTROCARDIOGRAM REPORT Name: DARIUSZ GRIGGSCEDRIC Tadeo Room: [address] ADM IN ..#: [id number] Admission: 01/21/21 Attend Phys: Bill Hedrick Discharge: Date of : 78 Date of Service: 03/12/21604 Report #: [id number] THIS REPORT FOR: //name// [facility] Test Date: 2021-03-12 Test Time: 06:05:15 Pat Name: CARLA GRIGGS Department: Room: [address] Gender: M Clearance Rep: MS : 1980 Requested By: Anthony Campos Order Number: [id number] Raciel MD: Tio Baird Measurements Intervals [place] Rate: 163 P: [place]: QRS: -33 QRSD: 95 T: 139 QT: 275 QTc: 453 Interpretive Statements Atrial flutter Abnormal R-wave progression, early transition Inferior infarct, old Lateral leads are also involved Compared to ECG 02/11/2021 10:20:02 Sinus rhythm no longer present Electronically Signed On 03-12-2021 11:29:01 CDT by Tio Baird [email or web address] <ELECTRONICALLY SIGNED> By: Tio Baird MD, [facility] 03/12/21 1129 [id number] Tio Baird MD, FAC /EPI
[2021-03-12 11:37] LABS: URINE BILIRUBIN NEGATIVE (Negative); URINE BLOOD 1+ (Negative); URINE CLARITY CLEAR; URINE COLOR YELLOW; URINE GLUCOSE-RANDOM NEGATIVE (Negative); URINE KETONES NEGATIVE (Negative); URINE LEUKOCYTES-REFLEX 1+ (Negative); URINE NITRITE-REFLEX NEGATIVE (Negative); URINE PROTEIN TRACE (Negative); URINE UROBILINOGEN 0.2 E.U./dl (0.2-1.0)
[2021-03-12 11:50] LABS: SQUAMOUS 0-3 Few /LPF (0-3)
[2021-03-12 11:51] LABS: BACTERIA-REFLEX 1-9 Few /HPF (None Seen); CASTS None Seen /LPF (None Seen); CRYSTALS None Seen /LPF (None Seen); MUCUS 0-3 Light strn/LPF (None Seen); URINE RBC 0-2 Rare /HPF (0-2); URINE WBC-REFLEX 6-15 Few /HPF (0-5); YEAST-REFLEX Present (None Seen)
--- NOTE | 2021-03-12 17:18 | NUR ---
Case and plan of care reviewed with MD each weekday during patient's length of stay. Continue plan of care per MD orders for current dx. Remains on Vent 65% FiO2 Trached and peg 03/06/21. Weaning IV versed.
[2021-03-13] VITALS (30 sets, daily range): BP systolic 85–196; BP diastolic 57–88
[2021-03-13 05:14] LABS: ABSOLUTE LYMPHOCYTES 0.7 thou/uL (0.8-5.3); ABSOLUTE MONOCYTES 0.5 thou/uL (0.0-1.2); ABSOLUTE NEUTROPHILS 12.7 thou/uL (1.6-8.1); BASOPHILS 0.2 %; EOSINOPHILS 0.2 %; HEMATOCRIT 25.4 % (42.0-52.0); HEMOGLOBIN 8.4 gm/dL (14.0-18.0); LYMPHOCYTES 5.3 %; MCH 30.4 pg (26.0-34.0); MCHC 33.1 g/dL (28.0-37.0); MCV 91.9 fL (80.0-100.0); MONOCYTES 3.6 %; MPV 7.1 fl. (7.2-11.1); NUCLEATED RBCS 1 /100WBC; POLYS 90.7 %; RBC 2.76 mil/uL (4.50-6.00); RDW-CV 20.9 % (10.5-14.5)
[2021-03-13 05:18] LABS: PLATELET COUNT* 177 thou/uL (150-400)
[2021-03-13 05:26] LABS: PHOSPHORUS* 3.1 mg/dL (2.5-4.9)
[2021-03-13 05:27] LABS: ALBUMIN 3.1 g/dL (3.4-5.0); CALCIUM 8.5 mg/dL (8.5-10.1); CREATININE 0.5 mg/dL (0.6-1.3); MAGNESIUM 2.1 mg/dL (1.8-2.4); POTASSIUM 4.1 mmol/L (3.5-5.1); TOTAL BILIRUBIN 0.6 mg/dL (<0.1-1.0); TOTAL PROTEIN 5.7 g/dL (6.4-8.2)
[2021-03-13 08:16] LABS: BE 3.1 mmol/L (-2 to +3); PCO2 46.5 mmHg (35.0-45.0); PO2 64.2 mmHg (75.0-100.0); pH 7.403 (7.340-7.450)
--- NOTE | 2021-03-13 08:59 | NUR ---
Case and plan of care reviewed with MD each weekday during patient's length of stay. Continue plan of care per MD orders for current dx. Free air abd and Right pneumo increased in size-consulted surgery. Suction to Chest tube increased to 40. Remains on Vent increased FiO2 from 65% to 70%. Called and left Gianfranco Girard/[facility] [phone] as follow up from clinicals sent yesterday and any pending auth process needs. Will continue to follow for transfer/discharge planning needs
--- NOTE | 2021-03-13 19:00 | NUR ---
ASSUMED CARE OF PT AT 0700. PT BECAME HYPERTENSIVES WITH SYSTOLIC NEAR 200, PRN PUSHES GIVEN. PROPOFOL STOPPED, PRECEDEX RESTARTED PER PROVIDER ORDER. PT REMAINS ON VENT VIA TRACHEOSTOMY, INCREASED FIO2 THROUGHOUT SHIFT TO MAINTAIN OXYGEN SATURATION. NO OUTPUT FROM CHEST TUBE THIS SHIFT. PT REMAINS ON VERSED, DIALUDID AND PRECEDEX GTTS PER ORDER. PLAN TO TITRATE VERSED GTT DOWN OVERNIGHT TOLERATED. PO ATIVATN STARTED. FAMILY UPDATED ON PT STATUS AND PLAN OF CARE.
[2021-03-14] VITALS (28 sets, daily range): BP systolic 76–155; BP diastolic 47–86
[2021-03-14 04:44] LABS: ABSOLUTE LYMPHOCYTES 0.6 thou/uL (0.8-5.3); ABSOLUTE MONOCYTES 0.6 thou/uL (0.0-1.2); ABSOLUTE NEUTROPHILS 16.9 thou/uL (1.6-8.1); BASOPHILS 0.1 %; HEMATOCRIT 26.8 % (42.0-52.0); HEMOGLOBIN 8.8 gm/dL (14.0-18.0); LYMPHOCYTES 3.2 %; MCH 30.1 pg (26.0-34.0); MCHC 32.9 g/dL (28.0-37.0); MCV 91.6 fL (80.0-100.0); MONOCYTES 3.4 %; MPV 6.9 fl. (7.2-11.1); NUCLEATED RBCS 1 /100WBC; PLATELET COUNT* 208 thou/uL (150-400); POLYS 93.3 %; RBC 2.92 mil/uL (4.50-6.00); RDW-CV 19.7 % (10.5-14.5); WBC 18.1 thou/uL (4.0-11.0)
[2021-03-14 04:59] LABS: ALBUMIN 3.2 g/dL (3.4-5.0); CALCIUM 8.6 mg/dL (8.5-10.1); CREATININE 0.5 mg/dL (0.6-1.3); POTASSIUM 5.2 mmol/L (3.5-5.1); TOTAL BILIRUBIN 0.5 mg/dL (<0.1-1.0); TOTAL PROTEIN 5.9 g/dL (6.4-8.2)
--- NOTE | 2021-03-14 09:49 | NUR ---
0940 PATIENT TACHYPNIC, HYPERTENSIVE, AND O2 SATS DECREASING. PATIENT EYES ARE OPEN BUT NOT FOLLOWING ANY COMMANDS. SEDATION IN RUNNING BUT SEEMS TO NEED MORE. 2MG ATIVEN PRN GIVEN PER ORDERS WITH NO IMPROVEMENT. PROPOFOL RESTARTED DUE TO RESPERS BEING IN THE UPPER 40'S TO LOW 50'S.
--- NOTE | 2021-03-14 16:18 | NUR ---
Case and plan of care reviewed with MD each weekday during patient's length of stay. Continue plan of care per MD orders for current dx. Remains on Vent 60 FiO2, Attempting IV sedation gtt weaning. Trach/Peg 03/06/21. [facility] pending auth approval. Will continue to follow for dc planning needs.
[2021-03-15] VITALS (39 sets, daily range): BP systolic 81–212; BP diastolic 38–84
[2021-03-15 05:09] LABS: ABSOLUTE LYMPHOCYTES 0.6 thou/uL (0.8-5.3); ABSOLUTE MONOCYTES 0.6 thou/uL (0.0-1.2); HEMATOCRIT 21.5 % (42.0-52.0); LYMPHOCYTES 3.1 %; MCH 30.2 pg (26.0-34.0); MCHC 32.3 g/dL (28.0-37.0); MCV 93.2 fL (80.0-100.0); MONOCYTES 2.9 %; MPV 7.3 fl. (7.2-11.1); NUCLEATED RBCS 1 /100WBC; PLATELET COUNT* 199 thou/uL (150-400); RBC 2.31 mil/uL (4.50-6.00); RDW-CV 20.6 % (10.5-14.5); WBC 20.2 thou/uL (4.0-11.0)
[2021-03-15 05:30] LABS: PHOSPHORUS* 2.9 mg/dL (2.5-4.9)
[2021-03-15 05:36] LABS: ALBUMIN 2.2 g/dL (3.4-5.0); CREATININE 0.3 mg/dL (0.6-1.3); MAGNESIUM 1.5 mg/dL (1.8-2.4); TOTAL BILIRUBIN 0.4 mg/dL (<0.1-1.0); TOTAL PROTEIN 4.4 g/dL (6.4-8.2)
[2021-03-15 05:37] LABS: CALCIUM 6.6 mg/dL (8.5-10.1)
--- NOTE | 2021-03-15 08:53 | NUR ---
Case and plan of care reviewed with MD each weekday during patient's length of stay. Continue plan of care per MD orders for current dx. Pt remains on Vent 60 FiO2 IV sedation restarted. [facility] process for approval initiated 03/12/21. CM will continue to follow for dc planning needs
--- NOTE | 2021-03-15 14:41 | EKG ---
[place] [address] ELECTROCARDIOGRAM REPORT Name: CARLA GRIGGS Room: [address] ADM IN .R.#: [id number] Admission: 01/21/21 Attend Phys: Bill Hedrick Discharge: Date of : 78 Date of Service: 03/15/21921 Report #: [id number] THIS REPORT FOR: //name// [facility] Test Date: 2021-03-15 Test Time: 09:22:28 Pat Name: CARLA GRIGGS Department: Room: [address] Gender: M Sap Bw Bi Developer: : 1980 Requested By: Tio Baird Order Number: [id number] Reading MD: Tio Baird Measurements Intervals [place] Rate: 77 P: 43 [place]: 163 QRS: -22 QRSD: 108 T: 21 QT: 383 QTc: 434 Interpretive Statements Sinus rhythm Borderline left axis deviation Abnormal R-wave progression, early transition Compared to ECG 03/12/2021 06:05:15 Atrial flutter no longer present Electronically Signed On 03-15-2021 14:40:51 CDT by Toi Baird [email or web address] <ELECTRONICALLY SIGNED> By: Tio Biard MD, [facility] 03/15/21 1440 1 1 Tio Baird MD, [facility] /EPI
[2021-03-16] VITALS (42 sets, daily range): BP systolic 83–206; BP diastolic 43–88
[2021-03-16 05:25] LABS: EOSINOPHILS 0.1 %; HEMOGLOBIN 8.7 gm/dL (14.0-18.0)
[2021-03-16 05:26] LABS: ABSOLUTE BASOPHILS 0.1 thou/uL (0.0-0.2); ABSOLUTE LYMPHOCYTES 1.3 thou/uL (0.8-5.3); ABSOLUTE MONOCYTES 0.6 thou/uL (0.0-1.2); ABSOLUTE NEUTROPHILS 19.6 thou/uL (1.6-8.1); BASOPHILS 0.4 %; HEMATOCRIT 26.2 % (42.0-52.0); MCH 30.5 pg (26.0-34.0); MCV 92.3 fL (80.0-100.0); MONOCYTES 2.8 %; MPV 7.2 fl. (7.2-11.1); NUCLEATED RBCS 1 /100WBC; PLATELET COUNT* 215 thou/uL (150-400); POLYS 90.7 %; RBC 2.84 mil/uL (4.50-6.00); RDW-CV 20.7 % (10.5-14.5); WBC 21.6 thou/uL (4.0-11.0)
[2021-03-16 05:36] LABS: ALBUMIN 3.5 g/dL (3.4-5.0); CALCIUM 8.2 mg/dL (8.5-10.1); CREATININE 0.4 mg/dL (0.6-1.3); POTASSIUM 4.4 mmol/L (3.5-5.1); TOTAL BILIRUBIN 0.6 mg/dL (<0.1-1.0); TOTAL PROTEIN 5.9 g/dL (6.4-8.2)
[2021-03-16 08:48] LABS: BE 7.1 mmol/L (-2 to +3); PO2 61.2 mmHg (75.0-100.0); pH 7.396 (7.340-7.450)
[2021-03-16 08:54] LABS: PCO2 55.1 mmHg (35.0-45.0)
[2021-03-16 14:18] LABS: BE 5.7 mmol/L (-2 to +3); PO2 60.6 mmHg (75.0-100.0); pH 7.359 (7.340-7.450)
[2021-03-16 14:20] LABS: PCO2 58.6 mmHg (35.0-45.0)
[2021-03-17] VITALS (25 sets, daily range): BP systolic 96–171; BP diastolic 38–76
--- NOTE | 2021-03-17 04:53 | NUR ---
ASSUMED CARE AT 1900H, ON VENT AT 75% AND TOLERATED. WITH EPISODES OF DESATURATION AND HYPERTENSION WHEN HIS AWAKE. ON DILAUDED AT 10MG/HR AND PRECEDEX AT MAX DOSE. PROPOFOL DRIP TITRATED. NO FEVER NOTED. CONTINUE MONITORING AND TOWARDS GOALS. PROPOFOL AT 80MICS. STILL WAITING FOR AVAILABLE BED IN LTAC.
[2021-03-17 05:03] LABS: HEMATOCRIT 22.5 % (42.0-52.0); HEMOGLOBIN 7.4 gm/dL (14.0-18.0); MCH 30.7 pg (26.0-34.0); MCV 93.2 fL (80.0-100.0); MPV 7.3 fl. (7.2-11.1); RBC 2.41 mil/uL (4.50-6.00); RDW-CV 20.8 % (10.5-14.5); WBC 18.3 thou/uL (4.0-11.0)
[2021-03-17 05:26] LABS: ALBUMIN 2.9 g/dL (3.4-5.0); CALCIUM 8.3 mg/dL (8.5-10.1); CREATININE 0.3 mg/dL (0.6-1.3); MAGNESIUM 2.2 mg/dL (1.8-2.4); POTASSIUM 4.6 mmol/L (3.5-5.1); TOTAL BILIRUBIN 0.5 mg/dL (<0.1-1.0); TOTAL PROTEIN 5.5 g/dL (6.4-8.2)
[2021-03-18] VITALS (26 sets, daily range): BP systolic 90–186; BP diastolic 50–85
--- NOTE | 2021-03-18 04:43 | NUR ---
ASSUMED CARE AT 1900H, ON VENT AT 75% AND TITRATED. ON MAX DOSE OF PRECEDEX AND DILAUDED. PROPOFOL AT 50MICS. METHADONE STARTED AND DECREASED SEDATION BY 20% PER ORDER. PT DESAT AND NOT IN SYNC WITH THE VENT WHICH HE ALWAYS DO EVERY EARLY IN THE MORNING, PRN FENTANYL AND ATIVAN GIVEN. UPDATE GIVEN TO ANGEL, ACCORDING TO HER PT WAKE TIME IS 4AM-6AM AND PROBABLY HIS TRING TO WAKE UP. DILAUDED PO AND ATIVAN PO GIVEN. SEDATION DRIP UP FOR AWHILE AND BACK TO PRECEDEX 1.1MICS, DILAUDED 8MG AND PROPOFOL 40MICS. CONTINUE MONITORING AND TOWARDS GOALS.
[2021-03-18 05:49] LABS: HEMATOCRIT 20.8 % (42.0-52.0); MCH 30.8 pg (26.0-34.0); MCHC 32.6 g/dL (28.0-37.0); MCV 94.5 fL (80.0-100.0); MPV 7.4 fl. (7.2-11.1); NUCLEATED RBCS 1 /100WBC; PLATELET COUNT* 179 thou/uL (150-400)
[2021-03-18 05:57] LABS: HEMOGLOBIN 6.8 gm/dL (14.0-18.0)
[2021-03-18 06:05] LABS: ALBUMIN 2.5 g/dL (3.4-5.0); CALCIUM 7.7 mg/dL (8.5-10.1); CREATININE 0.3 mg/dL (0.6-1.3); MAGNESIUM 1.9 mg/dL (1.8-2.4); PHOSPHORUS* 3.3 mg/dL (2.5-4.9); POTASSIUM 4.1 mmol/L (3.5-5.1); TOTAL BILIRUBIN 0.4 mg/dL (<0.1-1.0); TOTAL PROTEIN 4.9 g/dL (6.4-8.2)
[2021-03-18 07:46] LABS: ABSOLUTE LYMPHOCYTES 2.9 thou/uL (0.8-5.3); ABSOLUTE MONOCYTES 0.5 thou/uL (0.0-1.2); ABSOLUTE NEUTROPHILS 14.6 thou/uL (1.6-8.1); ATYPICAL LYMPHS 10 %; PLATELET ESTIMATE ADEQUATE
--- NOTE | 2021-03-18 11:46 | NUR ---
WOUND NURSE: PATIENT SEEN FOR FOLLOW UP ASSESSMENT PERTAINING TO SACRAL UNSTAGEABLE PRESSURE INJURY. PRESENTS WITH THIN LEATHERY BLACKENED ESCHAR COVERING THE WOUND BED, SMALL AREAS OF EXCORIATED SKIN TO THE PERIWOUND. SMALL AMOUNT OF SEROUS DRAINAGE PRESENT. WOUND CARE PROVIDED PRESCRIBED.
--- NOTE | 2021-03-18 16:09 | NUR ---
ICU Rounds: Patient remains on vent (FIO2 70% and peep 5). Continued precedex, dilaudid, propofol, TF, R chest tube. Patient is anemic so tranfusion needed. Psych consulted 03/17 to help with lowering sedation. Methadone added. CM Dir received call from Shaji at [facility] who stated that they have a bed but are unable to accept patient due to being on "too much sedation at this time per to CDC guidelines". Per Shaji, [facility] says that "sedation cannot control a patients HR". [facility] Manager to review case to determine what the sedation level will need to be at in order to accept. Shaji to call CM Dir back in the morning. Per Shaji, patient has auth and once sedation is lowered the patient can be accepted. Dr. Vargas, nursing and family updated. Chest tube dc order for [facility]: Shaji stated that she needs clear dc orders for chest tube maintenance and when to pull chest tube. Per Dr. Leonardo, "Continue CWS until subq emphysema resolved. Then water seal for 48 hours and then DC." [facility] if [facility] is able to accept patient once sedation is lowered. Reached out other LTACs to determine acceptance ability. [facility] is not accepting patients at this time and [facility] has a waitlist for BCBS patients. They can only accpet 2 BCBS patients at a time due to [facility] only reimbursing LTACs at the SNF rate. Currently [facility] has 7 people on the BCBS waitlist. Rose from [facility] will reach out to [place], [place] and [facility] locations to determine acceptance capabilities. Carito to follow up with CM Dir tomorrow. CM to continue to follow for safe dc planning
[2021-03-18 16:52] LABS: HEMATOCRIT 27.2 % (42.0-52.0)
[2021-03-18 16:54] LABS: HEMOGLOBIN 8.8 gm/dL (14.0-18.0)
[2021-03-19] VITALS (58 sets, daily range): BP systolic 82–189; BP diastolic 49–82
[2021-03-19 05:48] LABS: ABSOLUTE MONOCYTES 0.7 thou/uL (0.0-1.2); ABSOLUTE NEUTROPHILS 18.7 thou/uL (1.6-8.1); BASOPHILS 0.1 %; HEMATOCRIT 26.5 % (42.0-52.0); HEMOGLOBIN 8.9 gm/dL (14.0-18.0); LYMPHOCYTES 4.8 %; MCH 31.7 pg (26.0-34.0); MCHC 33.7 g/dL (28.0-37.0); MCV 93.9 fL (80.0-100.0); MONOCYTES 3.5 %; MPV 7.2 fl. (7.2-11.1); NUCLEATED RBCS 1 /100WBC; PLATELET COUNT* 176 thou/uL (150-400); POLYS 91.6 %; RBC 2.82 mil/uL (4.50-6.00); RDW-CV 20.2 % (10.5-14.5); WBC 20.4 thou/uL (4.0-11.0)
[2021-03-19 06:06] LABS: ALBUMIN 2.8 g/dL (3.4-5.0); CALCIUM 8.4 mg/dL (8.5-10.1); CREATININE 0.3 mg/dL (0.6-1.3); MAGNESIUM 1.9 mg/dL (1.8-2.4); PHOSPHORUS* 2.9 mg/dL (2.5-4.9); POTASSIUM 4.5 mmol/L (3.5-5.1); TOTAL BILIRUBIN 0.5 mg/dL (<0.1-1.0); TOTAL PROTEIN 5.4 g/dL (6.4-8.2)
[2021-03-19 07:36] LABS: BE 6.2 mmol/L (-2 to +3); PO2 93.5 mmHg (75.0-100.0); pH 7.395 (7.340-7.450)
[2021-03-19 07:37] LABS: PCO2 53.4 mmHg (35.0-45.0)
--- NOTE | 2021-03-19 08:19 | NUR ---
ASSUMED PATIENT CARE AT 1900. ASSESSMENTS COMPLETED CHARTED. CARDIAC MONITORING IN PLACE. HOURLY ROUNDING IN PLACE FOR PATIENT SAFETY. FALL PRECAUTIONS IN PLACE FOR PATIENT SAFETY.
[2021-03-19 09:25] LABS: % SATURATION 8 % (20-39); IRON 22 ug/dL (50-175)
--- NOTE | 2021-03-19 13:06 | NUR ---
PT DESATTING TO MID 80s. DR CHÁVEZ NOTIFIED. ORDER TO INCREASE PROPOFOL TO 50 AND PRECEDEX TO 1.4. FIO2 INCREASED TO 90%.
--- NOTE | 2021-03-19 16:02 | NUR ---
Case and plan of care reviewed with MD each weekday during patient's length of stay. Continue plan of care per MD orders for current dx. Remains on Vent, IV Sedation, Chest tube. No call from [facility] for transfer. Waiting on bed to open up. CM will continue to follow for discharge planning needs.
[2021-03-20] VITALS (63 sets, daily range): BP systolic 79–142; BP diastolic 43–77
[2021-03-20 04:00] LABS: ABSOLUTE BASOPHILS 0.1 thou/uL (0.0-0.2); ABSOLUTE LYMPHOCYTES 0.8 thou/uL (0.8-5.3); ABSOLUTE NEUTROPHILS 23.7 thou/uL (1.6-8.1); BASOPHILS 0.4 %; HEMATOCRIT 28.9 % (42.0-52.0); HEMOGLOBIN 9.5 gm/dL (14.0-18.0); LYMPHOCYTES 3.2 %; MCH 30.8 pg (26.0-34.0); MCHC 32.9 g/dL (28.0-37.0); MCV 93.6 fL (80.0-100.0); MONOCYTES 3.8 %; MPV 7.1 fl. (7.2-11.1); NUCLEATED RBCS 0 /100WBC; PLATELET COUNT* 206 thou/uL (150-400); POLYS 92.6 %; RBC 3.09 mil/uL (4.50-6.00); RDW-CV 20.2 % (10.5-14.5); WBC 25.6 thou/uL (4.0-11.0)
[2021-03-20 04:28] LABS: CALCIUM 8.4 mg/dL (8.5-10.1); CREATININE 0.4 mg/dL (0.6-1.3); MAGNESIUM 2.1 mg/dL (1.8-2.4); POTASSIUM 4.2 mmol/L (3.5-5.1); TOTAL BILIRUBIN 0.7 mg/dL (<0.1-1.0); TOTAL PROTEIN 5.9 g/dL (6.4-8.2)
--- NOTE | 2021-03-20 09:58 | NUR ---
ICU Rounds: Patient remains on vent (FiO2 75% and peep 5). Continued cookie, dilaudid, precedex and propofol. Rt chest tube remains in place. Awaiting [facility] ([facility]'s) decision on when patient can be medically accepted based on sedation needs. Auth has been obtained. updated on plan of care.
[2021-03-20 11:31] LABS: BE 10.3 mmol/L (-2 to +3); pH 7.419 (7.340-7.450)
[2021-03-20 11:35] LABS: PCO2 57.9 mmHg (35.0-45.0)
[2021-03-21] VITALS (72 sets, daily range): BP systolic 97–199; BP diastolic 54–92
--- NOTE | 2021-03-21 04:04 | NUR ---
ASSUMED CARE AT 1900H, WITH TRACHEOSTOMY HOOKED TO VENT AT 100%. ON PRECEDEX MAX DOSE AND PROPOFOL AT 40MICS AND TITRATED. NO FEVER AND DISTRESS NOTED. PRN SEDATION GIVEN. UPDATE GIVEN TO . CONTINUE MONITORING AND TOWARDS GOALS. MATTHEW OFF EARLY IN MY SHIFT. PROPOFOL OFF ARROUND 0400H.
[2021-03-21 13:21] LABS: BE 12.1 mmol/L (-2 to +3); pH 7.406 (7.340-7.450)
--- NOTE | 2021-03-21 13:24 | NUR ---
ICU Rounds: [facility] still following for acceptance. Only gtts patient is on is precedex and propofol. FiO2 90% and Peep 8 on vent. FiO2 is still too high for [facility] to accept based on COVID 19 guidelines per [facility]. Awaiting a return call from [facility] at this time for update. Family updated on plan of care.
[2021-03-21 13:25] LABS: PCO2 63.5 mmHg (35.0-45.0)
[2021-03-21 14:40] LABS: HEMATOCRIT 27.2 % (42.0-52.0); HEMOGLOBIN 8.9 gm/dL (14.0-18.0); MCH 30.5 pg (26.0-34.0); MCHC 32.6 g/dL (28.0-37.0); MCV 93.5 fL (80.0-100.0); MPV 7.3 fl. (7.2-11.1); NUCLEATED RBCS 0 /100WBC; PLATELET COUNT* 168 thou/uL (150-400); RBC 2.91 mil/uL (4.50-6.00); WBC 26.4 thou/uL (4.0-11.0)
[2021-03-21 14:41] LABS: ABSOLUTE LYMPHOCYTES 0.4 thou/uL (0.8-5.3); ABSOLUTE MONOCYTES 0.7 thou/uL (0.0-1.2); ABSOLUTE NEUTROPHILS 25.2 thou/uL (1.6-8.1); BASOPHILS 0.1 %; LYMPHOCYTES 1.6 %; MONOCYTES 2.7 %; POLYS 95.6 %
[2021-03-21 14:50] LABS: ALBUMIN 2.9 g/dL (3.4-5.0); CALCIUM 8.1 mg/dL (8.5-10.1); CREATININE 0.4 mg/dL (0.6-1.3); POTASSIUM 4.5 mmol/L (3.5-5.1); TOTAL BILIRUBIN 0.5 mg/dL (<0.1-1.0); TOTAL PROTEIN 5.9 g/dL (6.4-8.2)
[2021-03-22] VITALS (35 sets, daily range): BP systolic 93–161; BP diastolic 52–84
--- NOTE | 2021-03-22 04:02 | NUR ---
ASSUMED CARE AT 1910H, ON VENT AT 85% AND TOLERATED. ON PRECEDEX DRIP AT MAX DOSE. SEEN PT AWAKE, TACHYPNIC AND HYPERTENSIVE. PT LOOK AT ME WHEN I TALKED TO HIM. PER , PT SHOOK AND NODDED HIS HEAD WHEN ASKED. PRN SEDATION GIVEN AND RE-STARTED PROPOFOL DRIP. CONTINUE MONITORING AND TOWARDS GOALS. PROPOFOL OFF AT 0200H.
[2021-03-22 05:17] LABS: ABSOLUTE LYMPHOCYTES 0.5 thou/uL (0.8-5.3); ABSOLUTE MONOCYTES 0.9 thou/uL (0.0-1.2); ABSOLUTE NEUTROPHILS 25.8 thou/uL (1.6-8.1); BASOPHILS 0.1 %; HEMATOCRIT 27.6 % (42.0-52.0); HEMOGLOBIN 8.8 gm/dL (14.0-18.0); LYMPHOCYTES 1.9 %; MCH 30.5 pg (26.0-34.0); MCV 95.1 fL (80.0-100.0); MONOCYTES 3.3 %; MPV 7.2 fl. (7.2-11.1); NUCLEATED RBCS 0 /100WBC; PLATELET COUNT* 177 thou/uL (150-400); POLYS 94.7 %; WBC 27.2 thou/uL (4.0-11.0)
[2021-03-22 05:33] LABS: ALBUMIN 2.8 g/dL (3.4-5.0); CALCIUM 8.3 mg/dL (8.5-10.1); CREATININE 0.3 mg/dL (0.6-1.3); POTASSIUM 4.9 mmol/L (3.5-5.1); TOTAL BILIRUBIN 0.4 mg/dL (<0.1-1.0); TOTAL PROTEIN 5.9 g/dL (6.4-8.2)
--- NOTE | 2021-03-22 06:37 | NUR ---
PT'S HAVING A BLEEDING FROM TRACHEOSTOMY SITE AFTER TRACH CARE. SURGERY CALLED AND WILL CHECK PT TODAY. COMPACT DRESSING APPLIED BELOW THE TRACHEOSTOMY SITE.
[2021-03-22 08:08] LABS: BE 10.6 mmol/L (-2 to +3); PO2 61.4 mmHg (75.0-100.0); pH 7.376 (7.340-7.450)
[2021-03-22 08:13] LABS: PCO2 65.5 mmHg (35.0-45.0)
[2021-03-22 09:58] LABS: ABSOLUTE LYMPHOCYTES 1.6 thou/uL (0.8-5.3); ABSOLUTE MONOCYTES 1.9 thou/uL (0.0-1.2); ABSOLUTE NEUTROPHILS 31.3 thou/uL (1.6-8.1); BASOPHILS 0.1 %; HEMATOCRIT 21.8 % (42.0-52.0); HEMOGLOBIN 7.1 gm/dL (14.0-18.0); LYMPHOCYTES 4.7 %; MCH 30.6 pg (26.0-34.0); MCHC 32.5 g/dL (28.0-37.0); MCV 94.1 fL (80.0-100.0); MONOCYTES 5.3 %; MPV 7.1 fl. (7.2-11.1); NUCLEATED RBCS 1 /100WBC; PLATELET COUNT* 229 thou/uL (150-400); POLYS 89.9 %; RBC 2.31 mil/uL (4.50-6.00); WBC 34.8 thou/uL (4.0-11.0)
[2021-03-22 13:06] LABS: CALCIUM 7.1 mg/dL (8.5-10.1); CREATININE 0.5 mg/dL (0.6-1.3); POTASSIUM 4.9 mmol/L (3.5-5.1)
[2021-03-22 13:07] LABS: EOSINOPHILS 0.6 %; LYMPHOCYTES 2.3 %; MCH 31.2 pg (26.0-34.0); MCV 94.5 fL (80.0-100.0); MONOCYTES 4.8 %; MPV 7.3 fl. (7.2-11.1); NUCLEATED RBCS 2 /100WBC; PLATELET COUNT* 262 thou/uL (150-400); POLYS 92.3 %; RBC 2.07 mil/uL (4.50-6.00); RDW-CV 19.8 % (10.5-14.5)
[2021-03-22 13:08] LABS: ABSOLUTE EOSINOPHILS 0.3 thou/uL (0.0-0.7); ABSOLUTE LYMPHOCYTES 1.1 thou/uL (0.8-5.3); ABSOLUTE MONOCYTES 2.2 thou/uL (0.0-1.2); ABSOLUTE NEUTROPHILS 42.6 thou/uL (1.6-8.1)
[2021-03-22 13:09] LABS: WBC 46.1 thou/uL (4.0-11.0)
[2021-03-22 13:10] LABS: HEMATOCRIT 19.6 % (42.0-52.0); HEMOGLOBIN 6.5 gm/dL (14.0-18.0)
[2021-03-22 13:12] LABS: APTT 21.8 Seconds (25.0-31.3); INR 1.4
[2021-03-22 14:38] LABS: URINE BILIRUBIN NEGATIVE (Negative); URINE BLOOD 3+ (Negative); URINE CLARITY CLEAR; URINE COLOR YELLOW; URINE GLUCOSE-RANDOM NEGATIVE (Negative); URINE KETONES NEGATIVE (Negative); URINE LEUKOCYTES-REFLEX TRACE (Negative); URINE NITRITE-REFLEX NEGATIVE (Negative); URINE PROTEIN 1+ (Negative); URINE SPECIFIC GRAVITY >= 1.030 (1.005-1.030); URINE UROBILINOGEN 0.2 E.U./dl (0.2-1.0)
[2021-03-22 14:46] LABS: BACTERIA-REFLEX 1-9 Few /HPF (None Seen); CASTS None Seen /LPF (None Seen); CRYSTALS None Seen /LPF (None Seen); SQUAMOUS 0-3 Few /LPF (0-3); URINE RBC 0-2 Rare /HPF (0-2); URINE WBC-REFLEX 0-5 Rare /HPF (0-5)
[2021-03-22 16:43] LABS: ABSOLUTE BASOPHILS 0.1 thou/uL (0.0-0.2); ABSOLUTE EOSINOPHILS 0.5 thou/uL (0.0-0.7); ABSOLUTE MONOCYTES 2.3 thou/uL (0.0-1.2); BASOPHILS 0.3 %; HEMATOCRIT 22.4 % (42.0-52.0); HEMOGLOBIN 7.3 gm/dL (14.0-18.0); MCH 30.5 pg (26.0-34.0); MCHC 32.4 g/dL (28.0-37.0); MCV 94.2 fL (80.0-100.0); MONOCYTES 4.6 %; NUCLEATED RBCS 3 /100WBC; PLATELET COUNT* 252 thou/uL (150-400); POLYS 92.1 %; RBC 2.38 mil/uL (4.50-6.00); RDW-CV 18.5 % (10.5-14.5)
[2021-03-22 16:50] LABS: ABSOLUTE NEUTROPHILS 45.2 thou/uL (1.6-8.1)
[2021-03-22 16:51] LABS: WBC 49.1 thou/uL (4.0-11.0)
--- NOTE | 2021-03-22 19:00 | NUR ---
ASSUMED CARE OF PATIENT FROM [facility]
[2021-03-22 21:32] LABS: CALCIUM 7.5 mg/dL (8.5-10.1); CREATININE 0.7 mg/dL (0.6-1.3); MAGNESIUM 2.2 mg/dL (1.8-2.4); POTASSIUM 5.4 mmol/L (3.5-5.1)
[2021-03-22 21:35] LABS: ABSOLUTE BASOPHILS 0.1 thou/uL (0.0-0.2); ABSOLUTE EOSINOPHILS 0.5 thou/uL (0.0-0.7); ABSOLUTE MONOCYTES 2.9 thou/uL (0.0-1.2); ABSOLUTE NEUTROPHILS 47.5 thou/uL (1.6-8.1); BASOPHILS 0.2 %; EOSINOPHILS 0.9 %; HEMATOCRIT 23.5 % (42.0-52.0); HEMOGLOBIN 7.7 gm/dL (14.0-18.0); LYMPHOCYTES 2.4 %; MCH 30.5 pg (26.0-34.0); MCHC 32.8 g/dL (28.0-37.0); MONOCYTES 5.5 %; NUCLEATED RBCS 5 /100WBC; PLATELET COUNT* 245 thou/uL (150-400); RBC 2.52 mil/uL (4.50-6.00); RDW-CV 18.4 % (10.5-14.5)
[2021-03-22 21:36] LABS: ABSOLUTE LYMPHOCYTES 1.3 thou/uL (0.8-5.3); INR 1.4
[2021-03-22 21:46] LABS: WBC 52.2 thou/uL (4.0-11.0)
[2021-03-23] VITALS (112 sets, daily range): BP systolic 77–183; BP diastolic 29–89
[2021-03-23 04:56] LABS: ABSOLUTE BASOPHILS 0.1 thou/uL (0.0-0.2); ABSOLUTE LYMPHOCYTES 1.4 thou/uL (0.8-5.3); ABSOLUTE MONOCYTES 2.6 thou/uL (0.0-1.2); ABSOLUTE NEUTROPHILS 47.6 thou/uL (1.6-8.1); BASOPHILS 0.2 %; EOSINOPHILS 0.3 %; HEMATOCRIT 21.6 % (42.0-52.0); HEMOGLOBIN 7.1 gm/dL (14.0-18.0); LYMPHOCYTES 2.7 %; MCH 30.7 pg (26.0-34.0); MCHC 32.9 g/dL (28.0-37.0); MCV 93.4 fL (80.0-100.0); MPV 7.2 fl. (7.2-11.1); NUCLEATED RBCS 6 /100WBC; PLATELET COUNT* 216 thou/uL (150-400); POLYS 91.8 %; RBC 2.32 mil/uL (4.50-6.00); RDW-CV 18.9 % (10.5-14.5)
[2021-03-23 05:04] LABS: ABSOLUTE EOSINOPHILS 0.2 thou/uL (0.0-0.7)
[2021-03-23 05:06] LABS: ALBUMIN 2.4 g/dL (3.4-5.0); CALCIUM 7.3 mg/dL (8.5-10.1); CREATININE 0.8 mg/dL (0.6-1.3); MAGNESIUM 2.1 mg/dL (1.8-2.4); PHOSPHORUS* 5.5 mg/dL (2.5-4.9); POTASSIUM 5.6 mmol/L (3.5-5.1); TOTAL BILIRUBIN 0.7 mg/dL (<0.1-1.0); TOTAL PROTEIN 4.6 g/dL (6.4-8.2)
[2021-03-23 05:08] LABS: WBC 51.8 thou/uL (4.0-11.0)
[2021-03-23 07:33] LABS: BE -1.3 mmol/L (-2 to +3); PO2 69.1 mmHg (75.0-100.0)
[2021-03-23 07:40] LABS: PCO2 84.2 mmHg (35.0-45.0); pH 7.144 (7.340-7.450)
--- NOTE | 2021-03-23 08:50 | NUR ---
NOT PROGRESSING TOWARDS GOALS. UNABLE TO WEAN PRESSORS OR FIO2 DOWN. DR. CHÁVEZ AWARE OF ABGS AND INABILITY TO TAKE DOWN TO CT. UPDATED .
[2021-03-23 10:13] LABS: pH 7.157 (7.340-7.450)
[2021-03-23 12:05] LABS: CALCIUM 7.3 mg/dL (8.5-10.1)
[2021-03-23 12:06] LABS: POTASSIUM 6.1 mmol/L (3.5-5.1)
[2021-03-23 12:08] LABS: MAGNESIUM 2.4 mg/dL (1.8-2.4); PHOSPHORUS* 6.5 mg/dL (2.5-4.9)
[2021-03-23 16:49] LABS: BE -1.1 mmol/L (-2 to +3); PO2 71.7 mmHg (75.0-100.0)
[2021-03-23 16:52] LABS: PCO2 62.4 mmHg (35.0-45.0); pH 7.245 (7.340-7.450)
[2021-03-23 17:21] LABS: HEMATOCRIT 20.1 % (42.0-52.0); MCH 29.9 pg (26.0-34.0); MCHC 31.7 g/dL (28.0-37.0); MCV 94.3 fL (80.0-100.0); NUCLEATED RBCS 2 /100WBC; PLATELET COUNT* 172 thou/uL (150-400); RBC 2.13 mil/uL (4.50-6.00); RDW-CV 20.1 % (10.5-14.5)
[2021-03-23 17:26] LABS: CALCIUM 7.1 mg/dL (8.5-10.1); CREATININE 1.1 mg/dL (0.6-1.3); HEMOGLOBIN 6.4 gm/dL (14.0-18.0); MAGNESIUM 2.2 mg/dL (1.8-2.4)
[2021-03-23 18:08] LABS: ABSOLUTE LYMPHOCYTES 1.3 thou/uL (0.8-5.3); ABSOLUTE MONOCYTES 1.3 thou/uL (0.0-1.2); ABSOLUTE NEUTROPHILS 41.4 thou/uL (1.6-8.1); ANISOCYTOSIS 1+; METAMYELOCYTES 1 %; PLATELET ESTIMATE ADEQUATE
[2021-03-23 18:09] LABS: POLYCHROMASIA 1+
[2021-03-23 23:50] LABS: HEMATOCRIT 22.1 % (42.0-52.0); HEMOGLOBIN 7.1 gm/dL (14.0-18.0); MCH 30.1 pg (26.0-34.0); MCHC 32.3 g/dL (28.0-37.0); MCV 93.1 fL (80.0-100.0); MPV 7.3 fl. (7.2-11.1); RBC 2.37 mil/uL (4.50-6.00); WBC 36.8 thou/uL (4.0-11.0)
[2021-03-24] VITALS (56 sets, daily range): BP systolic 95–182; BP diastolic 46–91
[2021-03-24 00:02] LABS: CALCIUM 7.1 mg/dL (8.5-10.1); CREATININE 0.8 mg/dL (0.6-1.3); MAGNESIUM 2.1 mg/dL (1.8-2.4); PHOSPHORUS* 4.7 mg/dL (2.5-4.9)
[2021-03-24 00:03] LABS: POTASSIUM 4.9 mmol/L (3.5-5.1)
[2021-03-24 05:59] LABS: ABSOLUTE LYMPHOCYTES 0.9 thou/uL (0.8-5.3); ABSOLUTE MONOCYTES 1.1 thou/uL (0.0-1.2); ABSOLUTE NEUTROPHILS 27.6 thou/uL (1.6-8.1); BASOPHILS 0.1 %; EOSINOPHILS 0.1 %; MCH 30.4 pg (26.0-34.0); MCV 92.3 fL (80.0-100.0); MONOCYTES 3.6 %; NUCLEATED RBCS 1 /100WBC; PLATELET COUNT* 106 thou/uL (150-400); POLYS 93.2 %; RBC 2.13 mil/uL (4.50-6.00); RDW-CV 17.4 % (10.5-14.5); WBC 29.6 thou/uL (4.0-11.0)
[2021-03-24 06:14] LABS: HEMOGLOBIN 6.5 gm/dL (14.0-18.0)
[2021-03-24 06:15] LABS: HEMATOCRIT 19.6 % (42.0-52.0)
[2021-03-24 06:19] LABS: ALBUMIN 2.2 g/dL (3.4-5.0); CALCIUM 7.4 mg/dL (8.5-10.1); CREATININE 0.8 mg/dL (0.6-1.3); POTASSIUM 4.3 mmol/L (3.5-5.1); TOTAL BILIRUBIN 0.9 mg/dL (<0.1-1.0); TOTAL PROTEIN 4.3 g/dL (6.4-8.2)
[2021-03-24 06:39] LABS: BE -0.6 mmol/L (-2 to +3); PO2 89.6 mmHg (75.0-100.0); pH 7.339 (7.340-7.450)
[2021-03-24 15:10] LABS: HEMATOCRIT 21.5 % (42.0-52.0)
[2021-03-25] VITALS (36 sets, daily range): BP systolic 100–174; BP diastolic 45–76
--- NOTE | 2021-03-25 04:07 | NUR ---
ASSUMED CARE AT 1910H, ON VENT AT 100%. OPENED EYES TO PAIN. PT WAS TAKING EXTRA BREATH, PRN SEDATION GIVEN. NO FEVER AND NO BLEEDING NOTED. CONTINUE MONITORING AND TOWARD SGOALS.
[2021-03-25 06:35] LABS: ABSOLUTE BASOPHILS 0.3 thou/uL (0.0-0.2); ABSOLUTE LYMPHOCYTES 0.4 thou/uL (0.8-5.3); ABSOLUTE MONOCYTES 0.4 thou/uL (0.0-1.2); ABSOLUTE NEUTROPHILS 29.8 thou/uL (1.6-8.1); BASOPHILS 0.9 %; EOSINOPHILS 0.1 %; HEMATOCRIT 21.9 % (42.0-52.0); HEMOGLOBIN 7.3 gm/dL (14.0-18.0); LYMPHOCYTES 1.2 %; MCHC 33.3 g/dL (28.0-37.0); MCV 93.2 fL (80.0-100.0); MONOCYTES 1.3 %; MPV 7.1 fl. (7.2-11.1); NUCLEATED RBCS 2 /100WBC; PLATELET COUNT* 89 thou/uL (150-400); POLYS 96.5 %; RBC 2.36 mil/uL (4.50-6.00); WBC 30.8 thou/uL (4.0-11.0)
[2021-03-25 07:05] LABS: ALBUMIN 2.3 g/dL (3.4-5.0); CALCIUM 7.5 mg/dL (8.5-10.1); CREATININE 0.8 mg/dL (0.6-1.3); MAGNESIUM 2.3 mg/dL (1.8-2.4); PHOSPHORUS* 3.3 mg/dL (2.5-4.9); POTASSIUM 4.6 mmol/L (3.5-5.1); TOTAL BILIRUBIN 0.7 mg/dL (<0.1-1.0); TOTAL PROTEIN 4.7 g/dL (6.4-8.2)
[2021-03-25 08:39] LABS: BE -0.5 mmol/L (-2 to +3); PO2 67.2 mmHg (75.0-100.0); pH 7.312 (7.340-7.450)
[2021-03-25 08:46] LABS: PCO2 52.4 mmHg (35.0-45.0)
--- NOTE | 2021-03-25 14:29 | NUR ---
ICU ROUNDS: PROGNOSIS IS POOR. PT IS ON MAX SETTINGS, SHOWING "NO IMPROVEMENT." DR GARCIA INDICATED HE SPK WITH FAMILY ABOUT SCHEDULING A MEETING /[facility] STAFF. CM CONTACT TAMMY, , WHO CONFIRMED SHE WILL BE AVAIL ON MAR 28 BTWN [phone]. PT MOTHER, MALDONADO, WHO IS AT BEDSIDE, STATED SHE AND HER FATHER, EVELYN WILL ASLO ATTEND THE MEETING. CM UPDATED LOW BARNEY AND ALEKSANDRA COSME OF AFOREMENTIONED INFO.
[2021-03-25 18:24] LABS: BE -0.5 mmol/L (-2 to +3)
[2021-03-25 18:27] LABS: PCO2 73.9 mmHg (35.0-45.0); pH 7.201 (7.340-7.450)
[2021-03-25 18:28] LABS: PO2 53.9 mmHg (75.0-100.0)
--- NOTE | 2021-03-25 22:11 | NUR ---
I ASSUMED CARE OF THE PATIENT AT 0700. HE IS SEDATED AND VENTILATED. BED IS IN THE LOW LOCKED POSITION AND CALL LIGHT IS IN REACH. PAIN IS NOT DETECTED. PATIENT NEEDS ARE MET DURING HOURLY ROUNDING. BLOOD GLUCOSE IS MONITORED. BED IS CONSTANTLY POSITIONING PATIENT. HE IS DECLINING AND FAMILY IS AT THE BEDSIDE. EDUCATION COMPLETED AND FAMILY IS TRYING TO DECIDE WHAT IS BEST FOR THE PATIENT. WILL CONTINUE TO MONITOR.
[2021-03-26] VITALS (51 sets, daily range): BP systolic 67–127; BP diastolic 33–65
--- NOTE | 2021-03-26 04:37 | NUR ---
ASSUMED CARE AT 1910H, ON VENT AT 100% WITH O2 SAT OF 79%-82%. ON PROPOFOL DRIP AND STARTED DILAUDED AND NIMBEX DRIP. WAS ALLOWED TO STAY FOR TONIGHT AND DECIDED DNR CODE STATUS, HIMS INFORMED. FAMILY WILL TALKED TO [facility] AND WILL DECIDE IF THEY WILL DO COMFORT/PALLATIVE CARE. PT O2 SAT NOT IMPROVING, PULMO AWARE. CHEST X-RAY DONE WITH NO CHANGES. CONTINUE MONITORING AND TOWARDS GOALS. MATTHEW AT 200MICS AND LEVO AT 2MICS.
--- NOTE | 2021-03-26 07:54 | NUR ---
PATIENT BLOOD PRESSURE DECREASED, INCREASED LEVOPHED TO 15 MCG/MIN. AT BEDSIDE. EXPRESSED THAT SHE WISHES TO WITHDRAW CARE ON THE PATIENT AT THIS TIME. DR. GONSALEZ NOTIFIED AND HE WILL SEE THE WITHIN AN HOUR. FAMILY EN ROUTE TO THE HOSPITAL
--- NOTE | 2021-03-26 10:44 | EKG ---
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 Wet Process: WILLIS : 1980 Requested By: Bill Hedrick Order Number: [id number] Raciel MD: Shahzad Barreto Measurements Intervals [place] Rate: 110 P: 7 AR: 136 QRS: 146 QRSD: 141 T: 23 QT: 382 QTc: 517 Interpretive Statements Sinus tachycardia Right bundle branch block ST depression, consider ischemia, lateral lds Baseline wander in lead(s) V2 Compared to ECG 03/15/2021 09:22:28 Right bundle-branch block now present ST (T wave) deviation now present Possible ischemia now present Sinus rhythm no longer present Electronically Signed On 03-26-2021 10:44:35 CDT by Shahzad Barreto [email or web address] <ELECTRONICALLY SIGNED> By: Shahzad Barreto MD, [facility] 03/26/21 1044 Shahzad Barreto MD, [facility] /EPI
[2021-03-26 13:06] LABS: BE -5.2 mmol/L (-2 to +3)
[2021-03-26 13:09] LABS: PCO2 87.9 mmHg (35.0-45.0); PO2 49.7 mmHg (75.0-100.0)
[2021-03-26 13:18] LABS: HEMATOCRIT 22.7 % (42.0-52.0); HEMOGLOBIN 7.1 gm/dL (14.0-18.0); MCH 30.5 pg (26.0-34.0); MCHC 31.2 g/dL (28.0-37.0); MCV 97.8 fL (80.0-100.0); MPV 7.6 fl. (7.2-11.1); NUCLEATED RBCS 4 /100WBC; PLATELET COUNT* 120 thou/uL (150-400); RBC 2.32 mil/uL (4.50-6.00); RDW-CV 18.8 % (10.5-14.5)
[2021-03-26 13:20] LABS: WBC 43.2 thou/uL (4.0-11.0)
[2021-03-26 13:28] LABS: INR 1.1; PROTIME 12.1 Seconds (9.20-11.50)
[2021-03-26 13:35] LABS: CALCIUM 7.8 mg/dL (8.5-10.1); CREATININE 0.8 mg/dL (0.6-1.3); POTASSIUM 4.9 mmol/L (3.5-5.1)
[2021-03-26 13:40] LABS: ALBUMIN 2.6 g/dL (3.4-5.0); DIRECT BILIRUBIN 0.5 mg/dL (<0.1-0.3); PHOSPHORUS* 4.3 mg/dL (2.5-4.9); TOTAL BILIRUBIN 0.8 mg/dL (<0.1-1.0); TOTAL PROTEIN 5.2 g/dL (6.4-8.2)
[2021-03-26 13:42] LABS: ABSOLUTE NEUTROPHILS 43.2 thou/uL (1.6-8.1); METAMYELOCYTES 7 %
[2021-03-26 16:20] LABS: URINE BILIRUBIN NEGATIVE (Negative); URINE BLOOD 3+ (Negative); URINE CLARITY CLEAR; URINE COLOR YELLOW; URINE GLUCOSE-RANDOM NEGATIVE (Negative); URINE KETONES NEGATIVE (Negative); URINE LEUKOCYTES NEGATIVE (Negative); URINE NITRITE NEGATIVE (Negative); URINE PROTEIN 1+ (Negative); URINE SPECIFIC GRAVITY 1.025 (1.005-1.030); URINE UROBILINOGEN 0.2 E.U./dl (0.2-1.0)
[2021-03-26 16:25] LABS: HYALINE CASTS >10 Many /LPF (None Seen); MUCUS None Seen strn/LPF (None Seen); SQUAMOUS NONE SEEN /LPF (0-3)
[2021-03-26 16:26] LABS: CRYSTALS None Seen /LPF (None Seen); URINE RBC 0-2 Rare /HPF (0-2); URINE WBC 0-5 Rare /HPF (0-5); YEAST Present (None Seen)
[2021-03-26 16:27] LABS: BACTERIA 1-9 Few /HPF (None Seen)
--- NOTE | 2021-03-26 18:24 | NUR ---
THERE WAS A FAMILY MTG SCHEDULED FOR MAR 28 TO DISCUSS POC; HOWEVER, FAMILY DECIDED TO PROCEED WITH COMFORT CARE.
== END 2021-03-26 20:07 | DRG 4 ==
LOC: M.ERS 08:57 → M.ICU 10:22 → M.2W 10:22 → M.TBA-ER 10:22 → M.ICU 10:22 → M.2W 15:43 → M.ICU 01-30 10:26
PROVIDERS: Emergency Medicine Emergency Medical Services; Family Medicine; Internal Medicine; Internal Medicine Critical Care Medicine; Internal Medicine Nephrology; Nurse Practitioner Adult Health; Pediatrics; ADMIT Internal Medicine; ATTEND Internal Medicine
PROC: XW033E5 Introduction of Remdesivir Anti-infective into Peripheral Vein, Percutaneous Approach, New Technology Group 5 (ICD-10-PCS; 2021-01-21)
PROC: XW033H5 Introduction of Tocilizumab into Peripheral Vein, Percutaneous Approach, New Technology Group 5 (ICD-10-PCS; 2021-01-21)
PROC: 05HF33Z Insertion of Infusion Device into Left Cephalic Vein, Percutaneous Approach (ICD-10-PCS; 2021-01-22)
PROC: 5A0935A Assistance with Respiratory Ventilation, Less than 24 Consecutive Hours, High Flow/Velocity Cannula (ICD-10-PCS; 2021-01-22)
PROC: 5A0935A Assistance with Respiratory Ventilation, Less than 24 Consecutive Hours, High Flow/Velocity Cannula (ICD-10-PCS; 2021-01-23)
PROC: 5A0935A Assistance with Respiratory Ventilation, Less than 24 Consecutive Hours, High Flow/Velocity Cannula (ICD-10-PCS; 2021-01-24)
PROC: 5A09357 Assistance with Respiratory Ventilation, Less than 24 Consecutive Hours, Continuous Positive Airway Pressure (ICD-10-PCS; 2021-01-24)
PROC: XW13325 Transfusion of Convalescent Plasma (Nonautologous) into Peripheral Vein, Percutaneous Approach, New Technology Group 5 (ICD-10-PCS; 2021-01-24)
PROC: 5A0935A Assistance with Respiratory Ventilation, Less than 24 Consecutive Hours, High Flow/Velocity Cannula (ICD-10-PCS; 2021-01-25)
PROC: 5A09357 Assistance with Respiratory Ventilation, Less than 24 Consecutive Hours, Continuous Positive Airway Pressure (ICD-10-PCS; 2021-01-25)
PROC: 5A09357 Assistance with Respiratory Ventilation, Less than 24 Consecutive Hours, Continuous Positive Airway Pressure (ICD-10-PCS; 2021-01-26)
PROC: 5A0935A Assistance with Respiratory Ventilation, Less than 24 Consecutive Hours, High Flow/Velocity Cannula (ICD-10-PCS; 2021-01-26)
PROC: 5A09357 Assistance with Respiratory Ventilation, Less than 24 Consecutive Hours, Continuous Positive Airway Pressure (ICD-10-PCS; 2021-01-27)
PROC: 5A0935A Assistance with Respiratory Ventilation, Less than 24 Consecutive Hours, High Flow/Velocity Cannula (ICD-10-PCS; 2021-01-27)
PROC: 5A09357 Assistance with Respiratory Ventilation, Less than 24 Consecutive Hours, Continuous Positive Airway Pressure (ICD-10-PCS; 2021-01-28)
PROC: 5A0935A Assistance with Respiratory Ventilation, Less than 24 Consecutive Hours, High Flow/Velocity Cannula (ICD-10-PCS; 2021-01-28)
PROC: 5A09357 Assistance with Respiratory Ventilation, Less than 24 Consecutive Hours, Continuous Positive Airway Pressure (ICD-10-PCS; 2021-01-29)
PROC: 5A0935A Assistance with Respiratory Ventilation, Less than 24 Consecutive Hours, High Flow/Velocity Cannula (ICD-10-PCS; 2021-01-29)
PROC: 5A0935A Assistance with Respiratory Ventilation, Less than 24 Consecutive Hours, High Flow/Velocity Cannula (ICD-10-PCS; principal; 2021-01-30)
PROC: 5A09357 Assistance with Respiratory Ventilation, Less than 24 Consecutive Hours, Continuous Positive Airway Pressure (ICD-10-PCS; principal; 2021-01-30)
PROC: 0W9930Z Drainage of Right Pleural Cavity with Drainage Device, Percutaneous Approach (ICD-10-PCS; principal; 2021-01-30)
PROC: 5A09357 Assistance with Respiratory Ventilation, Less than 24 Consecutive Hours, Continuous Positive Airway Pressure (ICD-10-PCS; 2021-01-31)
PROC: 5A09357 Assistance with Respiratory Ventilation, Less than 24 Consecutive Hours, Continuous Positive Airway Pressure (ICD-10-PCS; 2021-02-01)
PROC: 5A0935A Assistance with Respiratory Ventilation, Less than 24 Consecutive Hours, High Flow/Velocity Cannula (ICD-10-PCS; 2021-02-01)
PROC: 5A0935A Assistance with Respiratory Ventilation, Less than 24 Consecutive Hours, High Flow/Velocity Cannula (ICD-10-PCS; 2021-02-02)
PROC: 5A09357 Assistance with Respiratory Ventilation, Less than 24 Consecutive Hours, Continuous Positive Airway Pressure (ICD-10-PCS; 2021-02-02)
PROC: 5A0935A Assistance with Respiratory Ventilation, Less than 24 Consecutive Hours, High Flow/Velocity Cannula (ICD-10-PCS; 2021-02-03)
PROC: 5A0945A Assistance with Respiratory Ventilation, 24-96 Consecutive Hours, High Flow/Velocity Cannula (ICD-10-PCS; 2021-02-04)
PROC: 5A09357 Assistance with Respiratory Ventilation, Less than 24 Consecutive Hours, Continuous Positive Airway Pressure (ICD-10-PCS; 2021-02-07)
PROC: 5A1955Z Respiratory Ventilation, Greater than 96 Consecutive Hours (ICD-10-PCS; 2021-02-08)
PROC: 0BH17EZ Insertion of Endotracheal Airway into Trachea, Via Natural or Artificial Opening (ICD-10-PCS; 2021-02-08)
PROC: 0W9930Z Drainage of Right Pleural Cavity with Drainage Device, Percutaneous Approach (ICD-10-PCS; 2021-02-26)
PROC: 0DH68UZ Insertion of Feeding Device into Stomach, Via Natural or Artificial Opening Endoscopic (ICD-10-PCS; 2021-03-06)
PROC: 0B110F4 Bypass Trachea to Cutaneous with Tracheostomy Device, Open Approach (ICD-10-PCS; 2021-03-06)
PROC: 30233N1 Transfusion of Nonautologous Red Blood Cells into Peripheral Vein, Percutaneous Approach (ICD-10-PCS; 2021-03-18)
DX: A41.89 Other specified sepsis (principal); U07.1 COVID-19; J12.82 Pneumonia due to coronavirus disease 2019; J80 Acute respiratory distress syndrome; I21.A1 Myocardial infarction type 2; R65.21 Severe sepsis with septic shock; J93.9 Pneumothorax, unspecified; N17.9 Acute kidney failure, unspecified; E44.0 Moderate protein-calorie malnutrition; I10 Essential (primary) hypertension; T70.29XA Other effects of high altitude, initial encounter; J98.2 Interstitial emphysema; R04.0 Epistaxis; I95.89 Other hypotension; I48.0 Paroxysmal atrial fibrillation; E87.5 Hyperkalemia; D69.6 Thrombocytopenia, unspecified; R74.01 Elevation of levels of liver transaminase levels; K76.0 Fatty (change of) liver, not elsewhere classified; R73.9 Hyperglycemia, unspecified; Z68.24 Body mass index [BMI] 24.0-24.9, adult; Z66 Do not resuscitate; I46.9 Cardiac arrest, cause unspecified; X58.XXXA Exposure to other specified factors, initial encounter; Z51.5 Encounter for palliative care

== ENCOUNTER 2021-03-26 20:07 | Observation (INO) | payer OTHER | END 2021-03-26 23:07 | LOC: M.ICU 20:07 → M.TBA-CV 20:07 → M.ICU 23:07 | DX: Z00.5 Encounter for examination of potential donor of organ and tissue (principal); U07.1 COVID-19; J12.82 Pneumonia due to coronavirus disease 2019; J96.90 Respiratory failure, unspecified, unspecified whether with hypoxia or hypercapnia ==